=== PATIENT | female | born 1990 | race Caucasian/White ===

== ENCOUNTER 2021-02-02 10:34 | Emergency (ER) | payer MEDICAID, SELFPAY ==
[2021-02-02 11:34] VITALS: BP 109/77; PULSE 84; RESP 18; O2SAT 100; BMI 32.5
--- NOTE | 2021-02-02 13:03 | ED_ITS ---
HPI - Skin/Abscess/Foreign Bdy General Chief complaint: Skin/Abscess/Foreign Body Stated complaint: rash? Time Seen by Provider: 02/02/21 12:10 Source: patient Mode of arrival: ambulatory History of Present Illness HPI narrative: 30-year-old female with a past medical eczema presenting to the ED complaining of rash to left wrist x7 months. Reports using multiple OTC medications and prescribed medication from PCP without relief. Reports increasing pruritus. Denies pain, fever, chills, numbness, tingling, injury MD complaint: rash Related Data Previous Rx's Medication Instructions Recorded cetirizine [Zyrtec] 10 mg PO DAILY #20 tab 02/02/21 diphenhydramine HCl [Benadryl] 25 mg PO Q6H PRN #14 cap 02/02/21 triamcinolone acetonide 1 appl TOPICAL BID #80 g 02/02/21 Allergies Allergy/AdvReac Type Severity Reaction Status Date / Time No Known Allergies Allergy Verified 02/02/21 11:33 [No Known Allergies*] Review of Systems Review of Systems: Constitutional: No Fever, No Chills Musculoskeletal: No joint pain, No Myalgias, No Joint Swelling Skin: No Skin Lesions, +rash Neuro: No Weakness, No Numbness, No Paresthesias Yes all other systems are reviewed and are negative [facility] Past Medical History Attestation statement: The following information was validated with the patient. Social History Social History Advance Directives: No Advance Directives Information Provided: No Patient : No Physical Exam Vital Signs: Vital Signs: Last Vital Signs Pulse 84 02/02/21 11:34 Resp 18 02/02/21 11:34 BP 109/77 02/02/21 11:34 Pulse Ox 100 02/02/21 11:34 Body Mass Index 32.5 Const: General: cooperative and healthy appearing Orientation/consciousness: patient oriented x3 Limitations: no limitations HENMT: Head: Yes normal to inspection Ears: hearing grossly normal bilaterally General nose exam: Normal external nose present Face and sinus: Yes normal facial exam Eyes: General: appearance normal, both eyes and all related structures EOM: EOMs intact bilaterally Neck: Neck: Yes normal visual inspection Resp: Effort & Inspection: normal respiratory effort Cardio: Rate: regular rate Peripheral pulses: radial pulses present Skin: Other: Discolored raised rough patches noted to left wrist dorsal aspect. No overlying cellulitis/fluctuance or induration Rashes: no rashes Wounds: no wounds Neuro: General: patient oriented x3 Gait exam (Neuro): Normal gait present Extrem: General: Yes normal to inspection MDM - Skin/Abscess/Foreign Bdy MDM Narrative Medical decision making narrative: 30-year-old female with a past medical eczema presenting to the ED complaining of rash to left wrist x7 months. On exam vital signs stable, NAD, exam consistent with eczema. Discharge Plan Discharge Clinical Impression: Eczema Qualifiers: Eczema type: unspecified Qualified Code(s): L30.9 - Dermatitis, unspecified Patient Disposition: Home, Self-Care Instructions: Eczema (ED) Additional Instructions: You have eczema, triamcinolone acetate is a topical steroid, only apply to rash, this has the chance of discoloring her skin, avoid appliance to face/hands. In addition Zyrtec will help with itchiness take during the day as it will not make you drowsy, in take Benadryl at night which will help with itchiness as it will make you drowsy. You need to follow-up with a utility assembler. If area begins to look infected, is red, you fever return to the ED Tiene eccema, el acetato de triamcinolona es un esteroide t?cassidy, solo apl?quelo en la erupci?n, esto tiene la posibilidad de decolorar baker piel, evite el aparato en la mihai / herrera. Adem?s, Zyrtec le ayudar? con la picaz?n, tome pilar el d ?a, ya que no le producir? somnolencia. Herricks Benadryl por la noche, que le ayudar? con la picaz?n, ya que lo angelica? sentir somnoliento. Debe hacer un seguimiento con un dermat?logo. Si el ?matheus comienza a verse infectada, est? enrojecida, la fiebre regresa al servicio de urgencias Prescriptions: New diphenhydramine HCl [Benadryl] 25 mg capsule 25 mg PO Q6H PRN (Reason: itching) Qty: 14 RF: 0 cetirizine [Zyrtec] 10 mg tablet 10 mg PO DAILY Qty: 20 RF: 0 triamcinolone acetonide 0.025 % ointment 1 appl topical BID Qty: 80 RF: 0 Referrals: Yue Alvarez PA [Physician Delivery Specialist] - 2 days Aristeo Luther MD [Physician] - 2 days Epi Beckett MD [Physician] - 2 days Opal Osorio PA-C [Physician Delivery Specialist] - 2 days Kala Beltre PA-C [Physician Delivery Specialist] - 2 days Print Language: French
== END 2021-02-02 13:24 | disposition home or self-care (01) ==
PROVIDERS: Emergency Provider Emergency Medicine; PCP Internal Medicine
DX: L30.9 Dermatitis, unspecified (principal)
CPT/HCPCS: 99283

== ENCOUNTER 2021-04-01 12:49 | Outpatient (REF) | payer MEDICAID, SELFPAY ==
--- NOTE | 2021-04-01 12:57 | ECG_ITS ---
Test Reason : PREPROC EXAM Blood Pressure : / mmHG Vent. Rate : 085 BPM Atrial Rate : 085 BPM P-R Int : 134 ms QRS Dur : 094 ms QT Int : 390 ms P-R-T Axes : 037 053 043 degrees QTc Int : 464 ms Normal sinus rhythm Normal ECG No previous ECGs available Referred By: Sandy Nunn Electronically Signed By:SVEN MORRIS MD
[2021-04-01 14:20] LABS: MANUAL DIFF FLAG NO
[2021-04-01 14:27] LABS: Basophils Percent Auto 0.6 % (0-2); Eosinophils Absolute Auto 0.1 X10*3/uL (0.0-0.4); Eosinophils Percent Auto 1.3 % (0-4); Hematocrit 34.2 % (37-47); Hemoglobin 10.3 g/dl (12.0-16.0); Imm Gran Abs Auto 0.05 X10*3/uL (0.00-0.03); Imm Gran Pct Auto 0.7 % (0.0-0.4); Lymphocytes Absolute Auto 2.2 X10*3/uL (1.2-4.9); Lymphocytes Percent Auto 31.4 % (20-40); Mean Corpuscular HGB Conc 30.1 g/dl (31.0-35.0); Mean Corpuscular Hemoglobin 24.3 pg (27.0-33.0); Mean Corpuscular Volume 80.9 fL (80-98); Monocytes Absolute Auto 0.5 X10*3/uL (0.1-1.2); Monocytes Percent Auto 6.7 % (2-11); Neutrophils Absolute Auto 4.1 X10*3/uL (2.0-8.3); Neutrophils Percent Auto 59.3 % (45-73); Platelet Count 416 X10*3/uL (160-400); Red Blood Count 4.23 X10*6/uL (4.20-5.50)
[2021-04-01 14:35] LABS: Prothrombin Time 11.8 SEC (9.9-13.0)
[2021-04-01 14:44] LABS: Alanine Aminotransferase 10 U/L (0-31); Albumin Level 4.1 g/dL (3.5-5.0); Alkaline Phosphatase 76 U/L (39-117); Anion Gap 12 (12-20); Aspartate Amino Transferase 14 U/L (5-31); Bilirubin Total 0.2 mg/dL (0.0-1.0); Blood Urea Nitrogen 9 mg/dL (9-16); Calcium 9.5 mg/dL (8.4-10.2); Carbon Dioxide 26 mmol/L (22-29); Chloride 107 mmol/L (96-108); Estimated Glomerular Filt Rate > 60; Glucose Random 91 mg/dL (60-115); Potassium 4.5 mmol/L (3.3-5.1); Sodium 140 mmol/L (135-145); Total Protein 7.3 g/dL (6.5-8.0)
[2021-04-01 14:52] LABS: HCG Quantitative < 2 mIU/mL
[2021-04-01 15:25] LABS: Glucose Urine UA NEG (NEG); Leukocyte Esterase Urine NEG (NEG); Nitrite Urine NEG (NEG); Specific Gravity - Urine >= 1.030 (1.005-1.025); Urine Blood NEG (NEG); Urine Ketones NEG (NEG); Urine Protein NEG (NEG-TRACE)
[2021-04-01 15:26] LABS: Appearance Urine CLEAR; Color Urine YELLOW
[2021-04-01 15:43] LABS: RBC Urine 0 /HPF (0); Squamous Epithelial Cell Urine 2+ /LPF; WBC Urine 0 /HPF (0-4)
[2021-04-02 08:19] LABS: HIV AB/AG Nonreactive (Nonreactive); HIV Num 1 0.08 S/CO (0.00-0.99)
== END 2021-04-01 12:50 | disposition home or self-care (01) ==
LOC: HO.LAB 12:49
PROVIDERS: Absent Provider Internal Medicine; PCP Internal Medicine; Visit Provider Nurse Practitioner Primary Care
DX: Z01.810 Encounter for preprocedural cardiovascular examination (principal); Z11.4 Encounter for screening for human immunodeficiency virus [HIV]
CPT/HCPCS: 36415; 80053; 81001; 84702; 85025; 85610; 87389; 93005

== ENCOUNTER 2021-06-16 13:50 | Outpatient (REF) | payer MEDICAID, SELFPAY ==
--- NOTE | ~2021-06-16 | US_ITS ---
EXAMINATION: US PELVIS CLINICAL INFORMATION: Excessive and frequent menstruation. COMPARISON: None TECHNIQUE: Ultrasound of the pelvis is performed using both transabdominal and transvaginal transducers along with Doppler. Transvaginal imaging is performed due to inadequate visualization transabdominally. FINDINGS: Uterus: The uterus is anteverted measuring 1.7 cm in length, 7.0 cm AP and 8.1 cm in transverse dimension.. The myometrium is heterogeneous. There is an echogenic lesion in the left body of uterus measuring 1.7 x 1.7 x 1.6 cm. No additional lesions seen. The endometrial thickness is 1.2 cm. Adnexa: Both ovaries are visualized. There is normal color flow to the adnexa. There is no ovarian torsion. There is no pelvic ascites or fluid collection. Right ovary measures 5.0 x 3.8 x 4.2 cm. There is anechoic simple cyst measuring 3.4 x 2.8 x 3.4 cm. Left ovary measures 5.0 x 2.9 x 2.7 cm. There are 2 simple cysts measuring 1.9 x 2.0 x 2.1 cm and 2.3 x 2.1 x 2.0 cm. US/US pelvic and transvaginal IMPRESSION: Bilateral simple ovarian cyst. Solitary uterine fibroid left uterus. Slightly heterogeneous myometrium.
== END 2021-06-16 13:51 | disposition home or self-care (01) ==
LOC: HO.HMGCX 13:50
PROVIDERS: PCP Internal Medicine; Visit Provider Internal Medicine
DX: N92.0 Excessive and frequent menstruation with regular cycle (principal)
CPT/HCPCS: 76830; 76856

== ENCOUNTER 2021-09-12 15:58 | Emergency (ER) | payer MEDICAID, SELFPAY | END 2021-09-12 17:44 | disposition left against medical advice (07) | PROVIDERS: Emergency Provider Emergency Medicine; PCP Internal Medicine | DX: R05.9 Cough, unspecified (principal) ==

== ENCOUNTER 2022-08-12 11:41 | Outpatient (REF) | payer MEDICAID, SELFPAY ==
--- NOTE | ~2022-08-12 | XR_ITS ---
EXAMINATION: XR FOOT, RIGHT CLINICAL INFORMATION: Right foot pain COMPARISON: None TECHNIQUE: AP, lateral, and oblique views of the right foot. FINDINGS: Chronic stress fracture of the second metatarsal with surrounding callus formation. XR/XR foot RT 2V IMPRESSION: Chronic stress fracture of the second metatarsal with surrounding callus formation.
== END 2022-08-12 11:42 | disposition home or self-care (01) ==
LOC: HO.XRAY 11:41
PROVIDERS: Visit Provider Internal Medicine
DX: M79.671 Pain in right foot (principal)
CPT/HCPCS: 73620

== ENCOUNTER → 2022-08-29 12:49 | Outpatient (BNVA) | payer MEDICAID, SELFPAY | PROVIDERS: Visit Provider Physician Assistant | DX: M84.374A Stress fracture, right foot, initial encounter for fracture (principal) | CPT/HCPCS: 99202 ==

== ENCOUNTER 2022-10-07 10:27 | Outpatient (REF) | payer MEDICAID, SELFPAY ==
--- NOTE | ~2022-10-07 | MR_ITS ---
EXAMINATION: MRI OF THE RIGHT FOOT WITHOUT CONTRAST CLINICAL INFORMATION: Stress fracture right foot. Patient reports pain 2nd toe symptoms for 2 months. COMPARISON: X-ray the right foot August 2022. TECHNIQUE: MRI the right foot performed without contrast on a high-field MRI scanner. [id number] includes the forefoot and distal midfoot. FINDINGS: BONE/CARTILAGE: Second Metatarsal: There is a minimally displaced transverse slightly oblique fracture of the distal diaphysis of the 2nd metatarsal located 3 views centimeters proximal to the metatarsophalangeal joint. There is prominent bone marrow edema throughout most of the metatarsal. There is circumferential heterogeneous signal surrounding the bone corresponding prominent callus formation/ossification seen on radiographs. The fracture line remains visible. Third Metatarsal: There is bone marrow edema involving most if not all the metatarsal. I do not see discrete fracture line. Minimal edema in the surrounding soft tissues distally at the level of the metatarsal neck. No definite callus formation. Remaining bone and joints are normal. LIGAMENTS AND CAPSULAR STRUCTURES: Unremarkable. MUSCLES/TENDONS: Normal. NEUROVASCULAR STRUCTURES: Normal. PARTIALLY VISUALIZED PLANTAR FASCIA: Normal. MR/MR foot RT wo con IMPRESSION: Incomplete healing of the 2nd metatarsal fracture with persistent bone marrow edema throughout most of the bone and prominent callus formation crossing the ununited fracture. Stress reaction of the 3rd metatarsal
== END 2022-10-07 10:28 | disposition home or self-care (01) ==
LOC: HO.MRI 10:27
PROVIDERS: Visit Provider Physician Assistant
DX: M84.374A Stress fracture, right foot, initial encounter for fracture (principal); X58.XXXA Exposure to other specified factors, initial encounter; Y93.9 Activity, unspecified; Y92.9 Unspecified place or not applicable; Y99.9 Unspecified external cause status
CPT/HCPCS: 73718

== ENCOUNTER 2022-11-17 13:14 | Outpatient (REF) | payer MEDICAID, SELFPAY ==
--- NOTE | ~2022-11-17 | XR_ITS ---
EXAMINATION: XR FOOT, RIGHT CLINICAL INFORMATION: Fracture follow-up COMPARISON: 08/12/2022 TECHNIQUE: AP, lateral, and oblique views of the right foot. FINDINGS: Chronic stress fracture of the second metatarsal with surrounding callus formation. XR/XR foot RT min 3V IMPRESSION: Chronic stress fracture of the second metatarsal with surrounding callus formation.
== END 2022-11-17 13:15 | disposition home or self-care (01) ==
LOC: HO.HOSX 13:14
PROVIDERS: Visit Provider Physician Assistant
DX: M84.374A Stress fracture, right foot, initial encounter for fracture (principal); X58.XXXA Exposure to other specified factors, initial encounter; Y93.9 Activity, unspecified; Y92.9 Unspecified place or not applicable; Y99.9 Unspecified external cause status
CPT/HCPCS: 73630; 99212

== ENCOUNTER 2023-05-18 08:46 | Outpatient (REF) | payer MEDICAID, SELFPAY ==
[2023-05-18 11:38] LABS: Cholesterol 145 mg/dL (<200); HDL Cholesterol 41 mg/dL (>40); LDL Cholesterol Calculated 87 mg/dL (<100); Triglycerides 89 mg/dL (<150)
[2023-05-18 11:56] LABS: Reflex LDLD? No
[2023-05-18 12:01] LABS: Anion Gap 10 (12-20); Blood Urea Nitrogen 7 mg/dL (9-16); Calcium 9.3 mg/dL (8.4-10.2); Carbon Dioxide 24 mmol/L (22-29); Chloride 109 mmol/L (96-108); Estimated Glomerular Filt Rate > 60; Glucose Random 111 mg/dL (60-115); Potassium 3.7 mmol/L (3.3-5.1); Sodium 139 mmol/L (135-145); TSH reflex Free T4 < 0.01 uIU/mL (0.32-4.0); Vitamin D 25-OH Total 22.1 ng/mL (>30)
[2023-05-18 13:49] LABS: Free T4 (Free Thyroxine) 1.18 ng/dL (0.71-1.85)
== END 2023-05-18 08:47 | disposition home or self-care (01) ==
LOC: HO.HHCL 08:46
PROVIDERS: Visit Provider Internal Medicine
DX: E04.9 Nontoxic goiter, unspecified (principal); E66.09 Other obesity due to excess calories; M54.9 Dorsalgia, unspecified; G89.29 Other chronic pain
CPT/HCPCS: 36415; 80048; 80061; 82306; 84439; 84443

== ENCOUNTER 2023-06-22 12:15 | Outpatient (REF) | payer MEDICAID, SELFPAY ==
--- NOTE | ~2023-06-22 | XR_ITS ---
EXAMINATION: XR THORACOLUMBAR SPINE CLINICAL INFORMATION: Thoracic back pain x2 weeks. Status post fall 6 months ago. COMPARISON: None available. TECHNIQUE: AP and lateral views of the thoracic spine. FINDINGS: There are 12 rib-bearing thoracic vertebral bodies. Alignment is normal. Vertebral body heights are maintained. Intervertebral disc spaces are preserved. The pedicles are intact. No paraspinal soft tissue abnormality. XR/XR thoracic spine 2V IMPRESSION: No acute abnormality.
== END 2023-06-22 12:16 | disposition home or self-care (01) ==
LOC: HO.HHCX 12:15
PROVIDERS: Visit Provider Internal Medicine
DX: M54.6 Pain in thoracic spine (principal)
CPT/HCPCS: 72070

== ENCOUNTER 2023-06-26 08:56 | Outpatient (REF) | payer MEDICAID, SELFPAY ==
[2023-06-26 11:45] LABS: D Dimer High Sensitivity 197 NG/ML
== END 2023-06-26 08:57 | disposition home or self-care (01) ==
LOC: HO.HHCL 08:56
PROVIDERS: Visit Provider Internal Medicine
DX: R00.0 Tachycardia, unspecified (principal)
CPT/HCPCS: 36415; 85379

== ENCOUNTER 2023-07-07 13:28 | Outpatient (REF) | payer MEDICAID, SELFPAY ==
[2023-07-07 16:03] LABS: MANUAL DIFF FLAG NO
[2023-07-07 16:18] LABS: Basophils Percent Auto 0.6 % (0-2); Eosinophils Absolute Auto 0.1 X10*3/uL (0.0-0.4); Eosinophils Percent Auto 0.7 % (0-4); Hematocrit 36.6 % (37.0-47.0); Hemoglobin 11.1 g/dl (12.0-16.0); Imm Gran Abs Auto 0.02 X10*3/uL (0.00-0.03); Imm Gran Pct Auto 0.3 % (0.0-0.4); Lymphocytes Percent Auto 27.8 % (20-40); Mean Corpuscular HGB Conc 30.3 g/dl (31.0-35.0); Mean Corpuscular Hemoglobin 23.8 pg (27.0-33.0); Mean Corpuscular Volume 78.4 fL (80.0-98.0); Mean Platelet Volume 11.6 fL (9.4-12.3); Monocytes Absolute Auto 0.7 X10*3/uL (0.1-1.2); Monocytes Percent Auto 9.7 % (2-11); Neutrophils Absolute Auto 4.3 x10*3/uL (2.0-8.3); Neutrophils Percent Auto 60.9 % (45-73); Platelet Count 432 X10*3/uL (160-400); Red Blood Count 4.67 X10*6/uL (4.20-5.50); Red Cell Distribution Width 14.3 % (11.0-16.0); White Blood Count 7.1 X10*3/uL (4.8-10.8)
[2023-07-07 16:46] LABS: TSH reflex Free T4 < 0.01 uIU/mL (0.32-4.0)
[2023-07-07 17:08] LABS: Erythrocyte Sedimentation Rate 51 MM/HR (0-20)
[2023-07-07 17:17] LABS: Free T4 (Free Thyroxine) 1.85 ng/dL (0.71-1.85)
[2023-07-08 12:13] LABS: Triiodothyronine T3 Free 17.2 pg/mL (2.3-4.2)
[2023-07-10 19:27] LABS: Thyroglobulin Antibodies >1000 IU/mL (< or = 1); Thyroid Peroxidase Antibodies >900 IU/mL (<9)
== END 2023-07-07 13:29 | disposition home or self-care (01) ==
LOC: HO.HHCL 13:28
PROVIDERS: Visit Provider Internal Medicine
DX: E04.9 Nontoxic goiter, unspecified (principal); R53.1 Weakness
CPT/HCPCS: 36415; 82550; 84439; 84443; 84481; 85025; 85652; 86376; 86800

== ENCOUNTER 2023-09-29 12:24 | Outpatient (REF) | payer MEDICAID, SELFPAY ==
[2023-09-29 16:54] LABS: Free T4 (Free Thyroxine) 2.29 ng/dL (0.71-1.85); T4 Thyroxine 18.8 ug/dL (4.5-12.0); Thyroid Stimulating Hormone < 0.01 uIU/mL (0.32-4.0)
[2023-09-30 09:54] LABS: Triiodothyronine T3 Free >20.0 pg/mL (2.3-4.2); Triiodothyronine T3 Total 516 ng/dL (76-181)
== END 2023-09-29 12:25 | disposition home or self-care (01) ==
LOC: HO.HHCL 12:24
PROVIDERS: Visit Provider Internal Medicine
DX: E06.3 Autoimmune thyroiditis (principal)
CPT/HCPCS: 36415; 84436; 84439; 84443; 84480; 84481

== ENCOUNTER 2023-10-05 09:42 | Outpatient (REF) | payer MEDICAID, SELFPAY ==
--- NOTE | ~2023-10-05 | US_ITS ---
EXAMINATION: US THYROID CLINICAL INFORMATION: Thyrotoxicosis COMPARISON: None available. TECHNIQUE: Linear transducer grayscale and color Doppler examination with attention to the region of the thyroid. FINDINGS: SIZE: Measurements of the thyroid lobes and nodules are given in sagittal, anteroposterior and transverse dimensions respectively. Right Thyroid Lobe: 5.5 x 2.8 x 2.6 cm, volume 18.9 mL. Parenchyma: The gland echotexture is heterogeneous. Thyroid vascularity is increased. Left Thyroid Lobe: 5.4 x 1.8 x 2.5 cm, volume 11.6 mL. Parenchyma: The gland echotexture is heterogeneous. Thyroid vascularity is increased. Isthmus: 0.6 cm in maximum AP dimension. No focal thyroid nodule is seen. NODES: There are nonpathologically enlarged cervical lymph nodes, measuring 0.8 x 0.3 x 0.6 cm superior to the isthmus, 1.5 x 0.6 x 0.8 cm in the left cervical region and 2.4 x 0.6 x 0.6 cm in the right cervical region. There is no sizable lymphadenopathy. US/US thyroid IMPRESSION: 1. There is an asymmetric goiter, right lobe greater than left. 2. There is heterogeneous thyroid echotexture and increased vascularity, which can be associated with thyroiditis. ACR TI-RADS RECOMMENDATION REFERENCE: Ultrasound-guided fine-needle aspiration, followup ultrasound, no further follow up. * TR1 (0 point) and TR2 (2 points): No FNA or follow up. * TR3 (3 points): FNA if more than or equal to 2.5 cm in maximum dimension, followup ultrasound in 1, 3 and 5 years if 1.5 to 2.4 cm in maximum dimension. * TR4 (4-6 points): FNA if more than or equal to 1.5 cm in maximum dimension, followup ultrasound in 1, 2, 3 and 5 years if 1 to 1.4 cm in maximum dimension. * TR5 (more than or equal to 7 points): FNA if more than or equal to 1 cm in maximum dimension, followup ultrasound every year for 5 years if 0.5 to 0.9 cm in maximum dimension. * TR3, TR4 or TR5 nodules that are below the size threshold for followup receive no follow up.
== END 2023-10-05 09:43 | disposition home or self-care (01) ==
LOC: HO.US 09:42
PROVIDERS: PCP Internal Medicine; Visit Provider Internal Medicine
DX: E05.90 Thyrotoxicosis, unspecified without thyrotoxic crisis or storm (principal); R60.0 Localized edema
CPT/HCPCS: 76536

== ENCOUNTER 2023-10-27 12:37 | Outpatient (REF) | payer MEDICAID, SELFPAY ==
[2023-10-27 13:21] LABS: MANUAL DIFF FLAG NO
[2023-10-27 13:31] LABS: Basophils Absolute Auto 0.1 X10*3/uL (0.0-0.2); Basophils Percent Auto 0.8 % (0-2); Eosinophils Absolute Auto 0.1 X10*3/uL (0.0-0.4); Eosinophils Percent Auto 1.4 % (0-4); Hematocrit 35.8 % (37.0-47.0); Hemoglobin 11.3 g/dl (12.0-16.0); Imm Gran Abs Auto 0.02 X10*3/uL (0.00-0.03); Imm Gran Pct Auto 0.3 % (0.0-0.4); Lymphocytes Absolute Auto 2.4 X10*3/uL (1.2-4.9); Lymphocytes Percent Auto 38.4 % (20-40); Mean Corpuscular HGB Conc 31.6 g/dl (31.0-35.0); Mean Corpuscular Hemoglobin 24.3 pg (27.0-33.0); Mean Platelet Volume 11.2 fL (9.4-12.3); Monocytes Absolute Auto 0.6 X10*3/uL (0.1-1.2); Monocytes Percent Auto 10.2 % (2-11); Neutrophils Absolute Auto 3.1 x10*3/uL (2.0-8.3); Neutrophils Percent Auto 48.9 % (45-73); Platelet Count 340 X10*3/uL (160-400); Red Blood Count 4.65 X10*6/uL (4.20-5.50); Red Cell Distribution Width 14.9 % (11.0-16.0); White Blood Count 6.3 X10*3/uL (4.8-10.8)
[2023-10-27 14:08] LABS: Alanine Aminotransferase 22 U/L (0-31); Albumin Level 3.7 g/dL (3.5-5.0); Alkaline Phosphatase 127 U/L (39-117); Anion Gap 11 (12-20); Aspartate Amino Transferase 25 U/L (5-31); Bilirubin Total 0.2 mg/dL (0.0-1.0); Blood Urea Nitrogen 7 mg/dL (9-16); Calcium 9.6 mg/dL (8.4-10.2); Carbon Dioxide 26 mmol/L (22-29); Chloride 108 mmol/L (96-108); Estimated Glomerular Filt Rate > 60; Glucose Random 97 mg/dL (60-115); Potassium 3.6 mmol/L (3.3-5.1); Sodium 141 mmol/L (135-145); Total Protein 7.1 g/dL (6.5-8.0)
[2023-10-27 14:22] LABS: Free T4 (Free Thyroxine) 1.92 ng/dL (0.71-1.85); TSH reflex Free T4 < 0.01 uIU/mL (0.32-4.0)
[2023-10-28 07:53] LABS: Triiodothyronine T3 Free 17.3 pg/mL (2.3-4.2)
== END 2023-10-27 12:38 | disposition home or self-care (01) ==
LOC: HO.HHCL 12:37
PROVIDERS: Visit Provider Internal Medicine
DX: R00.0 Tachycardia, unspecified (principal); E05.00 Thyrotoxicosis with diffuse goiter without thyrotoxic crisis or storm
CPT/HCPCS: 36415; 80053; 84439; 84443; 84481; 85025

== ENCOUNTER 2023-11-20 18:11 | Outpatient (REF) | payer MEDICAID, SELFPAY ==
[2023-11-21 06:24] LABS: CT PCR NOT DETECTED (Not Detect.); NG PCR NOT DETECTED (Not Detect.)
== END 2023-11-20 18:12 | disposition home or self-care (01) ==
LOC: HO.HHCLNP 18:11
PROVIDERS: Visit Provider Advanced Practice Midwife
DX: Z11.3 Encounter for screening for infections with a predominantly sexual mode of transmission (principal)
CPT/HCPCS: 0353U

== ENCOUNTER 2024-01-11 22:31 | Emergency (ER) | payer MEDICAID, SELFPAY ==
--- NOTE | 2024-01-11 | ECG_ITS ---
Test Reason : TACHYCARDIA Blood Pressure : / mmHG Vent. Rate : 107 BPM Atrial Rate : 107 BPM P-R Int : 130 ms QRS Dur : 092 ms QT Int : 346 ms P-R-T Axes : 039 022 036 degrees QTc Int : 461 ms Sinus tachycardia Otherwise normal ECG When compared with ECG of 11-JAN-2024 22:33, Vent. rate has decreased BY 55 BPM Referred By: Richie Arias Electronically Signed By:LARY GAMEZ
[2024-01-11 22:38] VITALS: BP 141/88; BP 152/84; PULSE 170; PULSE 171; RESP 32; TEMP 36.9; O2SAT 100; BMI 32.7
--- NOTE | 2024-01-11 22:40 | ED.GENADULT ---
HPI - General Adult General Chief complaint: Anxiety Stated complaint: ANXIETY Time Seen by Provider: 01/11/24 22:40 History of Present Illness HPI narrative: The patient is a 33-year-old female who says that she has been having problems with hyperthyroidism for a long time. It is not clear exactly how long but possibly as long as a year. She says that she believes her baseline heart rate is around 120. She says she is prescribed metoprolol 50 mg once a day. She thinks she missed her dose this morning. The patient has been upset the last couple of days because her cat is missing. Tonight she took an edible marijuana at around 19:00. She has not sure how much she took but she thinks she might have had more than she should have because she says that she had the impression that it was merely candy. Not long after taking the marijuana edible she felt that her heart rate was racing very fast and she called an ambulance and was brought to the hospital. She was quite upset. She was feeling very anxious. She denies using any other drugs than marijuana. She says she has not used marijuana before. The patient says she sees Dr. Gunn of endocrinology in the [place] area. She says that she had lab work done as an outpatient earlier today and she thinks that she will be scheduled for additional treatments or procedures to help address her hyperthyroid problem. No significant chest pain or pleuritic pain or shortness of breath. Related Data Home Medications ?Medication ?Instructions ?Recorded ?Confirmed ascorbic acid (vitamin C) 500 mg 500 mg PO BID 08/29/22 08/29/22 tablet (Vitamin C) ferrous sulfate 325 mg (65 mg 325 mg PO BID 08/29/22 08/29/22 iron) tablet (FeroSul) lidocaine 5 % topical patch 0 patch topical 08/29/22 08/29/22 (Lidoderm) naproxen 500 mg tablet 0 mg PO 08/29/22 08/29/22 Previous Rx's ?Medication ?Instructions ?Recorded cetirizine 10 mg tablet (Zyrtec) 10 mg PO DAILY #20 tabs 02/02/21 diphenhydramine HCl 25 mg capsule 25 mg PO Q6H PRN itching #14 caps 02/02/21 (Benadryl) triamcinolone acetonide 0.025 % 1 appl topical BID #80 grams 02/02/21 topical ointment Allergies Allergy/AdvReac Type Severity Reaction Status Date / Time No Known Allergies Allergy Verified 01/11/24 22:41 [No Known Allergies*] Review of Systems Review of Systems: Yes all other systems are reviewed and are negative [facility] Past Medical History Medical History (Updated 01/12/24 @ 03:13 by Richie Arias MD) Seasonal allergic reaction Social History Social History (Updated 08/29/22 @ 12:55 by Yojana Rivas CCM) Advance Directives: No Advance Directives Information Provided: Yes Do you have a plan to hurt others: No Plan Current occupational status: employed 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 She was very anxious and somewhat histrionic. Her heart rate was in the 170s. She seemed to tolerate the tachycardia well. She did not seem in distress aside from her anxiety. She did not seem short of breath in any way. HENMT Other: Face is symmetrical. Mucous membranes moist. Airway clear. Eyes Other: Pupils are round equal, conjunctivae are clear Neck Other: No JVD Resp Effort & Inspection: normal respiratory effort Auscultation: clear to auscultation bilaterally Cardio Other: No murmur heard Rate: tachycardic Rhythm: regular rhythm Heart sounds: S1 normal heart sound present and S2 normal heart sound present GI Other: Abdomen is soft and nontender Skin Other: Skin is dry and unremarkable Neuro Other: The patient is awake and alert. On my 1st encounter with the patient she seemed somewhat histrionic. Later she was calmer. Face is symmetrical. Speech is clear. Eye movements intact. She moves her extremities normally and symmetrically. Extrem Other: No calf swelling or tenderness. No peripheral edema. No asymmetry. Medications Administered Generic Name Dose Route Start Last Admin Trade Name Freq PRN Reason Stop Dose Admin Potassium Chloride/Sodium Chloride 40 meq in 1,000 mls @ 250 mls/hr 01/11/24 23:45 01/12/24 00:10 Kcl 40 Meq In 0.9 % Sodium Chl IV 01/12/24 03:44 250 mls/hr .Q4H MATT Administration Discontinued Medications Generic Name Dose Route Start Last Admin Trade Name Freq PRN Reason Stop Dose Admin Sodium Chloride 1,000 mls @ 999 mls/hr 01/11/24 23:00 01/11/24 23:55 Ns IV 01/12/24 00:00 Infused .Q1H1M MATT Infusion Lorazepam 1 mg 01/11/24 23:46 01/12/24 00:08 Lorazepam 2 Mg/Ml Vial IVPUSH 01/11/24 23:47 1 mg ONCE ONE Administration Metoprolol Tartrate 5 mg 01/12/24 01:19 01/12/24 01:38 Metoprolol Tartrate 5 Mg/5 Ml Vial IVPUSH 01/12/24 01:20 5 mg ONCE ONE Administration Protocol Metoprolol Tartrate 50 mg 01/12/24 01:19 01/12/24 01:38 Metoprolol Tartrate 50 Mg Tablet PO 01/12/24 01:20 50 mg ONCE ONE Administration Protocol Potassium Chloride 40 meq 01/11/24 23:46 01/12/24 00:11 Potassium Chloride Er 20 Meq Tab.Er.Prt PO 01/11/24 23:47 40 meq ONCE ONE Administration Medical Decision Making Medical Decision Making [facility] Narrative: The patient is a 33-year-old female who comes to the emergency room by ambulance after feeling very anxious after using edible marijuana for the 1st time. The patient is presentation was most significant for a significant tachycardia. Her heart rate was about 160. This seemed to be sinus tachycardia. The patient also reports that she has a history of hyperthyroidism that is still being worked up. She says that she takes metoprolol 50 mg daily but has not yet had any other specific treatment for her problem. She works with Dr. Gunn of Endocrinology in [place] I would in fact says that she had outpatient lab work earlier in the day and has plans to initiate additional treatments quite soon. She also says that she did not take her morning metoprolol this morning. My overall impression is that the patient has tachycardia is in part due to a reaction to marijuana use tonight. The patient says that she has a baseline tachycardia and her heart rate has often been 120 for the last several months. Another contributing factor is that she believes she did not take her metoprolol today. On the patient's labs her potassium came back quite low at 2.3. She was given oral potassium and IV potassium. She was given IV lorazepam as she initially seemed quite agitated. Later she was also given 5 mg of IV metoprolol and 50 mg of oral metoprolol tartrate. The patient had a minimally elevated D-dimer 240. I think this is sufficiently though that, given that her tachycardia probably seems better explained by a marijuana reaction combined with her underlying hyperthyroid syndrome and her missing her metoprolol today, that I think pursuing a CT pulmonary angiogram is probably not warranted. Although the patient has TSH today is undetectable I do not think she is in thyroid storm. I think this may be a manifestation of hyperthyroidism without thyroid storm. A repeat basic metabolic panel showed a normal potassium at 3.5. The patient was feeling much better. I think she may be discharged. She will be instructed to resume her usual metoprolol in the morning. She should avoid marijuana. She should contact her counseling services manager. She should return if worse. Lab Data 01/11/24 22:51 01/12/24 01:49 Labs: Lab Results 01/11/24 01/12/24 01/12/24 Range/Units 22:51 00:39 01:49 WBC 13.6 H (4.8-10.8) X10*3/uL RBC 4.47 (4.20-5.50) X10*6/uL Hgb 11.7 L (12.0-16.0) g/dl Hct 35.0 L (37.0-47.0) % MCV 78.3 L (80.0-98.0) fL MCH 26.2 L (27.0-33.0) pg MCHC 33.4 (31.0-35.0) g/dl RDW 14.0 (11.0-16.0) % Plt Count 451 H D (160-400) X10*3/uL MPV 10.5 (9.4-12.3) fL Immature Gran % (Auto) 0.2 (0.0-0.4) % Neut % (Auto) 50.0 (45-73) % Lymph % (Auto) 39.9 (20-40) % [place] % (Auto) 8.5 (2-11) % Eos % (Auto) 0.8 (0-4) % Baso % (Auto) 0.6 (0-2) % Lymph # (Auto) 5.4 H (1.2-4.9) X10*3/uL [place] # (Auto) 1.2 (0.1-1.2) X10*3/uL Eos # (Auto) 0.1 (0.0-0.4) X10*3/uL Baso # (Auto) 0.1 (0.0-0.2) X10*3/uL Abs Immat Gran (auto) 0.03 (0.00-0.03) X10*3/uL Absolute Neuts (auto) 6.8 (2.0-8.3) x10*3/uL Absolute Nucleated RBC 0.000 (0.0-0.012) X10*3/uL Nucleated RBC % (auto) 0.0 (0.0-0.2) /100WBC Smear Tech's Comments VERIFIED PT 12.7 (11.1-13.3) SEC INR 1.0 (0.9-1.1) D-Dimer High Sensitivty 240 NG/ML Sodium 140 138 (135-145) mmol/L Potassium 2.3 L* D 3.5 D (3.3-5.1) mmol/L Chloride 106 109 H (96-108) mmol/L Carbon Dioxide 22 21 L (22-29) mmol/L Anion Gap 14 12 (12-20) BUN 10 8 L (9-16) mg/dL Creatinine 0.60 0.52 (0.5-1.4) mg/dL Estim Creat Clear Calc 166.5 192.1 Estimated GFR > 60 > 60 Random Glucose 130 H 139 H (60-115) mg/dL Calcium 9.9 9.3 D (8.4-10.2) mg/dL Magnesium 1.5 L (1.6-2.6) mg/dL Total Bilirubin 0.2 (0.0-1.0) mg/dL Direct Bilirubin < 0.2 (0.0-0.5) mg/dL AST 20 (5-31) U/L ALT 19 (0-31) U/L Alkaline Phosphatase 162 H (39-117) U/L Troponin I High Sens < 2.7 (<3.5-17.0) ng/L C-Reactive Protein 0.61 H (< or = 0.50) mg/dL B-Natriuretic Peptide < 10 (<100) pg/mL Total Protein 7.6 (6.5-8.0) g/dL Albumin 4.0 (3.5-5.0) g/dL TSH < 0.01 L (0.32-4.0) uIU/mL Free T4 1.75 (0.71-1.85) ng/dL Beta HCG, Quant < 2 mIU/mL Urine Color Yellow Urine Appearance Clear Urine pH 6.5 (5.0-9.0) Ur Specific [place] 1.015 (1.005-1.025) Urine Protein Trace (Neg-Trace) mg/dL Urine Glucose (UA) Negative (Negative) mg/dL Urine Ketones Negative (Negative) mg/dL Urine Blood Moderate (2+) H (Negative) Urine Nitrite Negative (Negative) Ur Leukocyte Esterase Negative (Negative) Urine RBC >20 H (0-2) /HPF Urine WBC 0-5 (0-5) /HPF Ur Squamous Epith Cells 0-2 (0-2) /HPF Urine Bacteria None Seen (None Seen) Hyaline Casts 0-2 (0-2) /LPF Urine Opiates Screen Not Detected (Not Detect) Ur Buprenorphine Scrn Not Detected (Not Detect) ng/mL Ur Oxycodone Screen Not Detected (Not Detect) ng/mL Urine Methadone Screen Not Detected (Not Detect) ng/mL Urine Fentanyl Screen Not Detected (Not Detect) Ur Barbiturates Screen Not Detected (Not Detect) Ur Phencyclidine Scrn Not Detected (Not Detect) Ur Amphetamines Screen Not Detected (Not Detect) U Benzodiazepines Scrn Not Detected (Not Detect) Urine Cocaine Screen Not Detected (Not Detect) U Marijuana (THC) Screen POSITIVE H (Not Detect) Ethyl Alcohol < 10 mg/dL Influenza Type A (PCR) NEGATIVE (Negative) Influenza Type B (PCR) NEGATIVE (Negative) RSV RNA Qual (PCR) NEGATIVE (Negative) SARS-CoV-2 RNA (RT-PCR) NEGATIVE (Negative) Independent Interpretation I performed an independent interpretation of an: EKG Interpretation: EKG at 22:33 shows sinus tachycardia at 162 beats per minute. I believe most changes are rate related changes. Discharge Plan Discharge Clinical Impression: Tachycardia, Marijuana use, Hyperthyroidism Patient Disposition: Home, Self-Care Additional Instructions: Please try to get some sleep tonight. Resume your normal metoprolol dosing in the morning and also take any other regular medications. Avoid marijuana in the future. Please contact Dr. Gunn in the morning to follow through on your recent testing. Return to the emergency department if worse. Prescriptions: No Action diphenhydramine HCl [Benadryl] 25 mg capsule 25 mg PO Q6H PRN (Reason: itching) Qty: 14 0RF cetirizine [Zyrtec] 10 mg tablet 10 mg PO DAILY Qty: 20 0RF triamcinolone acetonide 0.025 % ointment 1 appl topical BID Qty: 80 0RF lidocaine [Lidoderm] 5 % adhesive patch,medicated 0 patch topical naproxen 500 mg tablet 0 mg PO ferrous sulfate [FeroSul] 325 mg (65 mg iron) tablet 325 mg PO BID ascorbic acid (vitamin C) [Vitamin C] 500 mg tablet 500 mg PO BID Referrals: Silas Gunn DO, MD [Physician] - (tachycardia, hyperthyroidism) Felisha Arzola MD [Primary Care Provider] - (Tachycardia, hyperthyroidism, marijuana use) Print Language: [place]i
[2024-01-11] MEDS: 0.9 % Sodium Chloride 1,000 ML 999 ML IV (22:54)
[2024-01-11 22:59] LABS: Basophils Absolute Auto 0.1 X10*3/uL (0.0-0.2); Basophils Percent Auto 0.6 % (0-2); Eosinophils Absolute Auto 0.1 X10*3/uL (0.0-0.4); Eosinophils Percent Auto 0.8 % (0-4); Hemoglobin 11.7 g/dl (12.0-16.0); Imm Gran Abs Auto 0.03 X10*3/uL (0.00-0.03); Imm Gran Pct Auto 0.2 % (0.0-0.4); Lymphocytes Absolute Auto 5.4 X10*3/uL (1.2-4.9); Lymphocytes Percent Auto 39.9 % (20-40); MANUAL DIFF FLAG SCAN; Mean Corpuscular HGB Conc 33.4 g/dl (31.0-35.0); Mean Corpuscular Hemoglobin 26.2 pg (27.0-33.0); Mean Corpuscular Volume 78.3 fL (80.0-98.0); Mean Platelet Volume 10.5 fL (9.4-12.3); Monocytes Absolute Auto 1.2 X10*3/uL (0.1-1.2); Monocytes Percent Auto 8.5 % (2-11); Neutrophils Absolute Auto 6.8 x10*3/uL (2.0-8.3); Platelet Count 451 X10*3/uL (160-400); Red Blood Count 4.47 X10*6/uL (4.20-5.50); SCAN SMEAR FLAG 1
[2024-01-11 23:03] LABS: Prothrombin Time 12.7 SEC (11.1-13.3)
[2024-01-11 23:20] LABS: Ethanol < 10 mg/dL
[2024-01-11 23:21] LABS: B Type Natriuretic Peptide < 10 pg/mL (<100)
[2024-01-11 23:23] LABS: White Blood Count 13.6 X10*3/uL (4.8-10.8)
[2024-01-11 23:24] LABS: SLIDE REVIEW VERIFIED
[2024-01-11 23:27] LABS: HCG Quantitative < 2 mIU/mL
[2024-01-11 23:29] LABS: Alanine Aminotransferase 19 U/L (0-31); Alkaline Phosphatase 162 U/L (39-117); Anion Gap 14 (12-20); Aspartate Amino Transferase 20 U/L (5-31); Bilirubin Direct < 0.2 mg/dL (0.0-0.5); Bilirubin Total 0.2 mg/dL (0.0-1.0); Blood Urea Nitrogen 10 mg/dL (9-16); C Reactive Protein 0.61 mg/dL (< or = 0.50); Calcium 9.9 mg/dL (8.4-10.2); Carbon Dioxide 22 mmol/L (22-29); Chloride 106 mmol/L (96-108); Creatinine Clr Calc Pharmacy 166.5; Estimated Glomerular Filt Rate > 60; Glucose Random 130 mg/dL (60-115); Magnesium 1.5 mg/dL (1.6-2.6); Potassium 2.3 mmol/L (3.3-5.1); Sodium 140 mmol/L (135-145); Total Protein 7.6 g/dL (6.5-8.0)
[2024-01-11 23:35] LABS: Influenza A PCR NEGATIVE (Negative); Influenza B PCR NEGATIVE (Negative); Resp Syncy Virus RNA Qual PCR NEGATIVE (Negative); SARS COV2 PCR INHOUSE NEGATIVE (Negative)
[2024-01-11 23:39] LABS: TSH reflex Free T4 < 0.01 uIU/mL (0.32-4.0)
[2024-01-11 23:54] LABS: Troponin-I High Sensitivity < 2.7 ng/L (<3.5-17.0)
[2024-01-12] MEDS: LORazepam 2 MG/ML VIAL 1 MG IVPUSH (00:08)
[2024-01-12] MEDS: KCl 40 mEq in 0.9 % Sodium Chl 40 MEQ/1,000 ML IV.SOLN 250 MEQ IV (00:10)
[2024-01-12] MEDS: Potassium Chloride ER 20 MEQ TAB.ER.PRT 40 MEQ PO (00:11)
[2024-01-12 00:14] LABS: D Dimer High Sensitivity 240 NG/ML
[2024-01-12 00:33] LABS: Free T4 (Free Thyroxine) 1.75 ng/dL (0.71-1.85)
[2024-01-12 00:41] VITALS: BP 135/83; PULSE 138; RESP 24; O2SAT 99
[2024-01-12 00:45] LABS: Appearance Urine Clear; Color Urine Yellow; Glucose Urine UA Negative (Negative); Leukocyte Esterase Urine Negative (Negative); Nitrite Urine Negative (Negative); PH 6.5 (5.0-9.0); Specific Gravity - Urine 1.015 (1.005-1.025); UMIC TRIGGER UACC YES; Urine Blood Moderate (2+) (Negative); Urine Ketones Negative (Negative); Urine Protein Trace mg/dL (Neg-Trace)
[2024-01-12 00:47] LABS: Bacteria Urine None Seen (None Seen); Hyaline Casts Urine 0-2 /LPF (0-2); RBC Urine >20 /HPF (0-2); Squamous Epithelial Cell Urine 0-2 /HPF (0-2); WBC Urine 0-5 /HPF (0-5)
[2024-01-12 01:02] LABS: Amphetamine Screen Urine Not Detected (Not Detect); Barbiturates, Urine Not Detected (Not Detect); Benzodiazepines Screen Urine Not Detected (Not Detect); Buprenorphine Scr Not Detected (Not Detect); Cannabinoid Screen Urine POSITIVE (Not Detect); Cocaine Screen Urine Not Detected (Not Detect); Fentanyl, urine Not Detected (Not Detect); Methadone Screen, Urine Not Detected (Not Detect); Opiate Screen Urine Not Detected (Not Detect); Oxycodone Screen Urine Not Detected (Not Detect); Phencyclidine Screen Urine Not Detected (Not Detect)
[2024-01-12 01:37] VITALS: BP 138/79; PULSE 136; RESP 19; O2SAT 99
[2024-01-12 01:38] VITALS: BP 138/79; PULSE 136
[2024-01-12] MEDS: Metoprolol Tartrate 50 MG TABLET PO (01:38)
[2024-01-12] MEDS: Metoprolol Tartrate 5 MG/5 ML VIAL IVPUSH (01:38)
--- NOTE | 2024-01-12 01:59 | ECG_ITS ---
Test Reason : tachycardia Blood Pressure : / mmHG Vent. Rate : 162 BPM Atrial Rate : 162 BPM P-R Int : 130 ms QRS Dur : 090 ms QT Int : 306 ms P-R-T Axes : 067 051 061 degrees QTc Int : 502 ms Sinus tachycardia Nonspecific ST and T wave abnormality Abnormal ECG When compared with ECG of 01-APR-2021 13:04, Vent. rate has increased BY 77 BPM Referred By: Richie Arias Electronically Signed By:LARY GAMEZ
[2024-01-12 02:10] LABS: Anion Gap 12 (12-20); Blood Urea Nitrogen 8 mg/dL (9-16); Calcium 9.3 mg/dL (8.4-10.2); Carbon Dioxide 21 mmol/L (22-29); Chloride 109 mmol/L (96-108); Creatinine Clr Calc Pharmacy 192.1; Estimated Glomerular Filt Rate > 60; Glucose Random 139 mg/dL (60-115); Potassium 3.5 mmol/L (3.3-5.1); Sodium 138 mmol/L (135-145)
[2024-01-12 02:39] VITALS: BP 126/82; PULSE 99; RESP 24; O2SAT 99
[2024-01-12 02:46] VITALS: BP 126/80; PULSE 99; RESP 18; O2SAT 100
[2024-01-12] MEDS: LORazepam 1 MG TABLET PO (03:16)
[2024-01-12 03:18] VITALS: BP 118/73; PULSE 97; RESP 21; TEMP 36.6; O2SAT 100
== END 2024-01-12 03:25 | disposition home or self-care (01) ==
PROVIDERS: Emergency Provider Emergency Medicine; PCP Internal Medicine
DX: R00.0 Tachycardia, unspecified (principal); F12.90 Cannabis use, unspecified, uncomplicated; E05.90 Thyrotoxicosis, unspecified without thyrotoxic crisis or storm; E87.6 Hypokalemia; Z79.899 Other long term (current) drug therapy
CPT/HCPCS: 0241U; 36415; 80048; 80076; 80307; 81001; 83735; 83880; 84439; 84443; 84484; 84702; 85025; 85379; 85610; 86140; 93005; 96361; 96374; 96375; 99285; J2060; J3480

== ENCOUNTER → 2024-01-11 | Outpatient (BNV) | payer MEDICAID, SELFPAY | PROVIDERS: Emergency Provider Emergency Medicine; PCP Internal Medicine; Visit Provider Internal Medicine | DX: R00.0 Tachycardia, unspecified (principal) | CPT/HCPCS: 93010 ==

== ENCOUNTER → 2024-01-12 01:59 | Outpatient (BNV) | payer MEDICAID, SELFPAY | PROVIDERS: Emergency Provider Emergency Medicine; PCP Internal Medicine; Visit Provider Internal Medicine | DX: R00.0 Tachycardia, unspecified (principal); R94.31 Abnormal electrocardiogram [ECG] [EKG] | CPT/HCPCS: 93010 ==

== ENCOUNTER 2024-09-24 09:02 | Outpatient (REF) | payer MEDICAID, SELFPAY ==
--- NOTE | ~2024-09-24 | XR_ITS ---
EXAMINATION: XR SHOULDER, LEFT CLINICAL INFORMATION: persistent L shoulder pain with decreased ROM COMPARISON: None available. TECHNIQUE: AP external rotation, Grashey, scapular Y, and axillary views of the left shoulder. FINDINGS: The bones and soft tissues are normal. No fracture. Glenohumeral and acromioclavicular alignment is anatomic with normal joint space. No abnormal soft tissue calcifications. XR/XR shoulder LT min 2V IMPRESSION: Normal left shoulder. Electronically signed by: Suraj Lilly MD 09/24/2024 10:48 AM HALLIE
== END 2024-09-24 09:03 | disposition home or self-care (01) ==
LOC: HO.HHCX 09:02
PROVIDERS: Visit Provider Family Medicine
DX: M25.512 Pain in left shoulder (principal)
CPT/HCPCS: 73030

== ENCOUNTER → 2024-09-24 09:02 | Outpatient (BNV) | payer MEDICAID, SELFPAY | PROVIDERS: Visit Provider Radiology Diagnostic Radiology | DX: M25.512 Pain in left shoulder (principal) | CPT/HCPCS: 73030 ==

== ENCOUNTER 2024-09-27 08:55 | Emergency (ER) | payer MEDICAID, SELFPAY ==
--- NOTE | ~2024-09-27 | XR_ITS ---
EXAMINATION: XR CHEST 2 VIEWS HISTORY: cough,cwp COMPARISON: Comparison is made with the prior examination dated 07/13/2018. FINDINGS: PA and lateral views of the chest are submitted. The lungs are expanded and clear. There is no pleural effusion, pneumothorax, or pulmonary vascular congestion. The heart is normal in size. The bones are intact. XR/XR chest 2V IMPRESSION: No acute cardiopulmonary abnormality. Electronically signed by: Freeman Valero MD 09/27/2024 09:23 AM EST
--- NOTE | 2024-09-27 08:58 | ECG_ITS ---
Test Reason : CHEST PRESSURE Blood Pressure : */* mmHG Vent. Rate : 92 BPM Atrial Rate : 92 BPM P-R Int : 136 ms QRS Dur : 94 ms QT Int : 362 ms P-R-T Axes : 21 24 26 degrees QTcB Int : 447 ms Normal sinus rhythm Incomplete right bundle branch block Borderline ECG When compared with ECG of 12-Jan-2024 02:02, Incomplete right bundle branch block is now Present Referred By: Generic ED Physician Electronically Signed By: SVEN MORRIS MD
[2024-09-27 08:59] VITALS: BP 117/81; PULSE 92; RESP 20; TEMP 37.1; O2SAT 98; BMI 33.6
[2024-09-27 10:43] LABS: Influenza A PCR NEGATIVE (Negative); Influenza B PCR NEGATIVE (Negative); Resp Syncy Virus RNA Qual PCR NEGATIVE (Negative); SARS COV2 PCR INHOUSE NEGATIVE (Negative)
--- NOTE | 2024-09-27 12:05 | ED.GENADULT ---
HPI - General Adult General Chief complaint: Upper Respiratory Symptoms Stated complaint: chest pressure Time Seen by Provider: 09/27/24 11:22 History of Present Illness HPI narrative: Patient complains of 5 days of coughing now productive of green sputum along with a stuffy nose and some right ear mild discomfort, it does hurt in her chest when she coughs but there is no other chest pain, there is no shortness of breath Chest pain is only with cough, no pain with deep breath no shortness of breath no diaphoresis no exertional component it is not related to exertion and it is only present with cough There is no stiff neck there is no sore throat no difficulty swallowing no difficulty breathing, no abdominal pain no nausea vomiting or diarrhea no dysuria no rash Related Data Home Medications ?Medication ?Instructions ?Recorded ?Confirmed ascorbic acid (vitamin C) 500 mg 500 mg PO BID 08/29/22 08/29/22 tablet (Vitamin C) ferrous sulfate 325 mg (65 mg 325 mg PO BID 08/29/22 08/29/22 iron) tablet (FeroSul) lidocaine 5 % topical patch 0 patch topical 08/29/22 08/29/22 (Lidoderm) naproxen 500 mg tablet 0 mg PO 08/29/22 08/29/22 Previous Rx's ?Medication ?Instructions ?Recorded cetirizine 10 mg tablet (Zyrtec) 10 mg PO DAILY #20 tabs 02/02/21 diphenhydramine HCl 25 mg capsule 25 mg PO Q6H PRN itching #14 caps 02/02/21 (Benadryl) triamcinolone acetonide 0.025 % 1 appl topical BID #80 grams 02/02/21 topical ointment azithromycin 250 mg tablet See Rx Instructions PO .COMPLEX #6 09/27/24 (Zithromax Z-Berny) tabs Allergies Allergy/AdvReac Type Severity Reaction Status Date / Time No Known Allergies Allergy Verified 09/27/24 09:01 [No Known Allergies*] [facility] Past Medical History Source: nursing notes reviewed Medical History (Updated 09/27/24 @ 12:34 by SHARDA Bryan) Seasonal allergic reaction Social History Social History (Updated 08/29/22 @ 12:55 by RANJANA Perez) Advance Directives: No Advance Directives Information Provided: Yes Current occupational status: employed 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 Physical Exam ED Vital Signs: Vital Signs - 24 hr 09/27/24 08:59 Temperature 37.1 F L Pulse Rate 92 Respiratory Rate 20 Blood Pressure 117/81 Pulse Oximetry 98 Oxygen Delivery Method Room Air BMI result Body Mass Index 33.6 Temperature was rechecked and is 97.2 General appearance no acute distress, breathing easily, calm and cooperative The ears there is no redness or bulging of either tympanic membrane, there is no redness or narrowing of either canal Sinuses are nontender The eyes no redness or discharge The pharynx is clear without redness swelling or exudate voice normal, membranes moist The chest is clear with full symmetric equal breath sounds Heart no murmur Abdomen soft nontender Extremities full range motion x4 Skin no rash Course Course Course Narrative: Chest x-ray was negative EKG was normal sinus rhythm with a rate of 92, SD was normal, QT normal QRS duration 94, no ST elevations no acute ischemic changes Serology was negative for COVID and flu Well-appearing patient with worsening cough and sputum is diagnosed with bronchitis, treatment will be Zithromax, she has explained it is likely viral but could be early bacterial infection and she is discharged Medical Decision Making Lab Data Labs: Lab Results 09/27/24 Range/Units 09:42 Influenza Type A (PCR) NEGATIVE (Negative) Influenza Type B (PCR) NEGATIVE (Negative) RSV RNA Qual (PCR) NEGATIVE (Negative) SARS-CoV-2 RNA (RT-PCR) NEGATIVE (Negative) Discharge Plan Discharge Clinical Impression: Bronchitis Patient Disposition: Home, Self-Care Additional Instructions: Chest x-ray was normal EKG was normal COVID and flu tests were negative We are treating for bronchitis with Zithromax antibiotic Drink plenty of fluids Return any time any worse condition or concerns Prescriptions: New azithromycin [Zithromax Z-Berny] 250 mg tablet See Rx Instructions .ROUTE .COMPLEX Qty: 6 0RF Rx Instructions: For 250 mg dose pack: take 500 mg today (day 1), then 250 mg for 4 days (days 2-5) No Action diphenhydramine HCl [Benadryl] 25 mg capsule 25 mg PO Q6H PRN (Reason: itching) Qty: 14 0RF cetirizine [Zyrtec] 10 mg tablet 10 mg PO DAILY Qty: 20 0RF triamcinolone acetonide 0.025 % ointment 1 appl topical BID Qty: 80 0RF lidocaine [Lidoderm] 5 % adhesive patch,medicated 0 patch topical naproxen 500 mg tablet 0 mg PO ferrous sulfate [FeroSul] 325 mg (65 mg iron) tablet 325 mg PO BID ascorbic acid (vitamin C) [Vitamin C] 500 mg tablet 500 mg PO BID Print Language: Polish
[2024-09-27 12:42] VITALS: BP 117/81; PULSE 92; RESP 20; TEMP 37.1; O2SAT 98
== END 2024-09-27 12:42 | disposition home or self-care (01) ==
PROVIDERS: Emergency Provider Emergency Medicine; PCP Internal Medicine
DX: J40 Bronchitis, not specified as acute or chronic (principal); R05.9 Cough, unspecified; H92.01 Otalgia, right ear; Z03.818 Encounter for observation for suspected exposure to other biological agents ruled out
CPT/HCPCS: 0241U; 71046; 93005; 99283

== ENCOUNTER → 2024-09-27 08:58 | Outpatient (BNV) | payer MEDICAID, SELFPAY | PROVIDERS: Emergency Provider Emergency Medicine; PCP Internal Medicine; Visit Provider Internal Medicine Cardiovascular Disease | DX: R07.89 Other chest pain (principal); I45.19 Other right bundle-branch block; R94.31 Abnormal electrocardiogram [ECG] [EKG] | CPT/HCPCS: 93010 ==

== ENCOUNTER 2024-10-16 09:09 | Outpatient (REF) | payer MEDICAID, SELFPAY ==
--- OUTSIDE RECORDS SUMMARY | 2024-10-16 09:30 | XMS_ITS | Encounter Summary ---
Author Organization [employer] [facility] Address [address] [place] [address] [address], [place] [address] Care Team Providers Care Calibration Tester Name Role Phone Felisha Arzola MD Primary Care Provider + Encounter Details Date Type Department Care Team (Latest Contact Info) Description 11/05/2018 Abstract [facility] CONVERSIONS Dental, Provider, DDS Social History Tobacco Use Types Packs/Day Years Used Date Smoking Tobacco: Never Assessed Comments Unknown Sex and Gender Information Value Date Recorded Sex Assigned at Female 07/11/2022 10:31 AM EDT Legal Sex Female 10:31 AM EDT Gender Identity Female 07/11/2022 10:31 AM EDT Sexual Orientation Straight 07/11/2022 10 :31 AM EDT documented as of this encounter Plan of Treatment Upcoming Encounters Date Type Department Care Team (Late st Contact Info) Description 11/08/2024 10:00 AM EST Office Visit [facility] MEDICINE [address] [place] [address] Felisha Arzola MD [address] [place] [address] documented as of this encounter Visit Diagnoses Not on filedocumented in this encounter Care Teams Calibration Tester Relationship Specialty Start Date End Date Felisha Arzola MD [address] [place], [place] [phone] PCP - General Family Medicine 01/06/17 documented as of this encounter
--- OUTSIDE RECORDS SUMMARY | 2024-10-16 09:30 | XMS_ITS | Encounter Summary ---
Author Organization [employer] Address [address] [facility] [address] [place] [address] Care Team Providers Care Donor Recruiter Name Role Phone Felisha Arzola MD Primary Care Provider + Reason for Visit * Reason Onset Date Comments Letter for School/Work 08/18/2022 Encounter Details Date Type Department Care Team ([facility] st Contact Info) Description 08/18/2022 Telephone [facility] MEDICINE [address] [place], [place] [phone] Felisha Arzola MD [address] [place], [place] [phone] Letter for School/Work Social History Tobacco Use Types Packs/Day Years Used Date Smoking Tobacco: Never Assessed Comments Unknown Sex and Gender Information Value Date Recorded Sex Assigned at Female 07/11/2022 10:31 AM EDT Legal Sex Female 10:31 AM EDT Gender Identity Female 07/11/2022 10:31 AM EDT Sexual Orientation Straight 07/11/2022 10 :31 AM EDT COVID-19 Exposure Response Date Recorded In the last 10 days, have yo u been in contact with someone who was confirmed or suspected to have Coronavirus/COVID-19? No / Unsure 08/11/2022 2:07 PM EST documented as of this encounter Miscellaneous Notes * Telephone Encounter - Shahzad Arrieta - 08/25/2022 10:12 AM EST Tc from pt requesting a letter for program stating about her fracture foot Please contact pt at [phone] * Telephone Encounter - Uma Pham RN - 08/18/2022 2:36 PM EST Returned call. VM is full . Left another SMS notification to return call. * Telephone Encounter - Katty Aguilar - 08/18/2022 1:20 PM EST Tc from pt returning call * Telephone Encounter - Uma Pham RN - 08/18/2022 10:33 AM EST Unable to LVM due to full VM. Left SMS notification to return call at [phone]. * Telephone Encounter - Katty Aguilar - 08/18/2022 9:35 AM EST Symptom: Leg Swelling - Not From Injury Outcome: Schedule an urgent appointment (within 4 hours) or talk to a nurse or provider soon Reason: Leg swelling on one side only The caller accepted this outcome Pt states has gotten xrays done about a week ago and no results woke up today with leg swollen . * Telephone Encounter - Katty Aguilar - 08/18/2022 9:32 AM EST Tc from pt requesting xray results . States got xrays done at [facility] . documented in this encounter Plan of Treatment Upcoming Encounters Date Type Department Care Team (Late st Contact Info) Description 11/08/2024 10:00 AM EST Office Visit [facility] MEDICINE [address] [place] [address] Felisha Arzola MD [address] [place], [place] [phone] documented as of this encounter Visit Diagnoses Not on filedocumented in this encounter Care Teams Donor Recruiter Relationship Specialty Start Date End Date Felisha Arzola MD [address] [place] [phone] PCP - General Family Medicine 01/06/17 documented as of this encounter
--- OUTSIDE RECORDS SUMMARY | 2024-10-16 09:30 | XMS_ITS | Encounter Summary ---
Author Organization [facility] Address [address] [facility] [address] [place] [address] Care Team Providers Care Shank Paperer Name Role Phone Felisha Arzola MD Primary Care Provider + Encounter Details Date Type Department Care Team (Late st Contact Info) Description 08/18/2022 Orders Only [facility] MEDICINE [address] [place] [address] [phone] Gudelia Robb MD [address] [place], [place] [phone] Stress fracture of metatarsal bone of right foot, initial encounter (Primary Dx) Social History Tobacco Use Types Packs/Day Years [...] PM EST documented as of this encounter Plan of Treatment Upcoming Encounters Date Type Department Care Team (Late st Contact Info) Description 11/08/2024 10:00 AM EST Office Visit [facility] MEDICINE [address] [place] [phone] Felisha Arzola MD [address] [place], [place] [phone] documented as of this encounter Visit Diagnoses Diagnosis Stress fracture of metatarsal bone of right foot, initial encounter- Primary documented in this encounter Care Teams Shank Paperer Relationship Specialty Start Date End Date Felisha Arzola MD [address] [place] [phone] PCP - General Family Medicine 01/06/17 documented as of this encounter
--- OUTSIDE RECORDS SUMMARY | 2024-10-16 09:30 | XMS_ITS | Encounter Summary ---
Author Organization [employer] Address [address] [facility] [address] [place] [address] Care Team Providers Care Drafter Electronic Name Role Phone Felisha Arzola MD Primary Care Provider + Reason for Visit * Reason Onset Date Comments Results 06/29/2023 Encounter Details Date Type Department Care Team ([facility] st Contact Info) Description 06/29/2023 Telephone [facility] MEDICINE [address] [place], [place] [phone] Felisha Arzola MD [address] [place] [address] Results Social History Tobacco Use Types Packs/Day Years Used Date Smoking Tobacco: Never Passive Smoke Exposure: Never Smokeless Tobacco: Never Alcohol Use Standard Drinks/Week Comments Never 0 (1 standard drink = 0.6 oz pur e alcohol) Depression Answer Date Recorded Patient Health Questionnaire-9 Score 12 05/17/2023 Housing Stability Answer Date Recorded What is your housing situation today? I do not have housing (Staying with others, in a hotel, in a jail, living outside on the street, on a beach, in a car, or in a park 06/20/[address] you li ve. Do you have problems with any of the following? None of the above 06/20/2023 Food Insecurity Answer Date Recorded Within the past 12 months, y ou worried that your food would run out before you got money to buy more: Never True 06/26/2023 Within the past 12 months,th e food you bought just didn't last and you didn't have enough money to get more: Never True Transportation Answer Date Recorded In the past 12 months, has l ack of transportation kept you from medical appts, meetings, work or from getting things needed for daily living? Yes, it has kept me from medical appointments or getting medications. 06/20/2023 Utilities Answer Date Recorded In the past 12 months, has t he electric, gas, oil or water company threatened to shut off services in your home? No 06/26/2023 Depression Answer Date Recorded Patient Health Questionnaire-2 Score 3 05/17/2023 Comments Unknown Sex and Gender Information Value Date Recorded Sex Assigned at Female 07/11/2022 10:31 AM EDT Legal Sex Female 10:31 AM EDT Gender Identity Female 07/11/2022 10:31 AM EDT Sexual Orientation Straight 07/11/2022 10 :31 AM EDT documented as of this encounter Miscellaneous Notes * Telephone Encounter - Lesley Jackson RN - 07/07/2023 3:37 PM EDT Spoke with Provider to discuss letter request for additional month off from school. stated that she spoke with patient and gave her a letter regarding Amharic classes. Please refer to letter. No further action needed. * Telephone Encounter - Comfort Smith - 06/29/2023 9:30 AM EDT Tc from pt requesting a call back in regards results on XRAY done at [facility] 06/22/2023 documented in this encounter Plan of Treatment Upcoming Encounters Date Type Department Care Team (Late st Contact Info) Description 11/08/2024 10:00 AM EST Office Visit [facility] MEDICINE [address] [place] [address] Felisha Arzola MD [address] [place] [address] documented as of this encounter Visit Diagnoses Not on filedocumented in this encounter Additional Health Concerns Assessment Noted Time PHQ-9 Depression Total Score: 12 023 9:23 AM EDT documented as of this encounter Care Teams Drafter Electronic Relationship Specialty Start Date End Date Felisha Arzola MD [address] [place] [id number] PCP - General Family Medicine 01/06/17 documented as of this encounter
--- OUTSIDE RECORDS SUMMARY | 2024-10-16 09:30 | XMS_ITS | Encounter Summary ---
Author Organization [facility] Address [address] [place] [address] [address] Care Team Providers Care Biophysics Teacher Name Role Phone Felisha Arzola MD Primary Care Provider + Encounter Details Date Type Department Care Team (Latest Contact Info) Description 03/31/2022 Abstract [facility] CONVERSIONS Dental, Provider, DDS Social History [...] Description 11/08/2024 10:00 AM EST Office Visit [facility] MEDICINE [address] [place] [address] Felisha Arzola MD [address] [place] [address] documented as of this encounter Visit Diagnoses Not on filedocumented in this encounter Care Teams Biophysics Teacher Relationship Specialty Start Date End Date Felisha Arzola MD [address] [place], [place] [phone] PCP - General Family Medicine 01/06/17 documented as of this encounter
--- OUTSIDE RECORDS SUMMARY | 2024-10-16 09:30 | XMS_ITS | Encounter Summary ---
Author Organization [facility] [facility] Address [address] [place] [address] [address] [address] Care Team Providers Care Table Operator Name Role Phone Felisha Arzola MD Primary Care Provider + Encounter Details Date Type Department Care Team (Latest Contact Info) Description 05/06/2019 Abstract [facility] CONVERSIONS Dental, Provider, DDS Social History [...] Description 11/08/2024 10:00 AM EST Office Visit [facility] MEDICINE [address] [place] [address] Felisha Arzola MD [address] [place] [address] documented as of this encounter Visit Diagnoses Not on filedocumented in this encounter Care Teams Table Operator Relationship Specialty Start Date End Date Felisha Arzola MD [address] [place], [place] [phone] PCP - General Family Medicine 01/06/17 documented as of this encounter
--- OUTSIDE RECORDS SUMMARY | 2024-10-16 09:30 | XMS_ITS | Encounter Summary ---
Author Organization [employer] [facility] Address [address] [place] [address] [address] Care Team Providers Care Medical Anthropologist Name Role Phone Felisha Arzola MD Primary Care Provider + Encounter Details Date Type Department Care Team (Latest Contact Info) Description 12/04/[address] [facility] CONVERSIONS Dental, Provider, DDS Social History [...] Description 11/08/2024 10:00 AM EST Office Visit [facility] MEDICINE [address] [place] [address] Felisha Arzola MD [address] [place] [address] documented as of this encounter Visit Diagnoses Not on filedocumented in this encounter Care Teams Medical Anthropologist Relationship Specialty Start Date End Date Felisha Arzola MD [address] [place], [place] [phone] PCP - General Family Medicine 01/06/17 documented as of this encounter
--- OUTSIDE RECORDS SUMMARY | 2024-10-16 09:30 | XMS_ITS | Encounter Summary ---
Author Organization [employer] [facility] Address [address] [place] [address] Care Team Providers Care Bark Scaler Name Role Phone Felisha Arzola MD Primary Care Provider + Reason for Referral * Consultation (Routine) - Closed Specialty Diagnoses / Procedures Referred By Barbara callahan Referred To Contact Physical Therapy Diagnoses Acute pain of left shoulder Juliana Solis DO [address] [place] [address] Phone: tel: fax: [facility] [address] [place] [address] Phone: tel: fax: Referral ID Status Reason Start Date Expiration Date V isits Requested Visits Authorized [id number] Closed Specialty Services Required 09/23/2024 09/23/2025 20 20 Reason for Visit * Reason Comments Shoulder Pain Encounter Details Date Type Department Care Team (Late st Contact Info) Description 09/23/2024 10:20 AM EST Office Visit [facility] [address] [place] [address] Juliana Solis DO [address] [place] [address] Acute pain of left shoulder (Primary Dx); Anemia, unspecified type Social History Tobacco Use Types Packs/Day Years [...] with others, in a hotel, in a prison, living outside on the street, on a [...] AM EDT documented as of this encounter Last Filed Vital Signs Vital Sign Reading Time Taken Comments Blood Pressure 133/89 09/23/2024 10:48 AM EST Pulse 92 09/23/2024 10:48 AM EST Temperature 36.8 ??C (98.2 ??F) 09/23/2024 10:[address] Respiratory Rate 16 09/23/2024 10:48 AM EST Oxygen Saturation 100% 09/23/2024 10:48 AM EST Inhaled Oxygen Concentration - - Weight 103 kg (227 lb) 09/23/2024 10:48 AM EST Height - - Body Mass Index 33.52 05/17/2024 10:01 AM EDT documented in this encounter Progress Notes * Juliana Solis, DO - 09/23/2024 10:20 AM EST SUBJECTIVE Domitila Ramirez is a 33 y.o. female who presents for Sick Visit. She comes to [place] c/o shoulder pain for 1 mos. She called last week c/o L-shoulder pain x 3 weeks. She reported her pain was worse with movement and no improvement with advil and she was advised come to [place]. She c/o diffuse shoulder pain. She denies any radiation of pain. No numbness or tingling. Her pain is worse when she moves and thinks that it's her muscles. Her motion is less than her R arm. She feels less strong. She denies any trauma to the area. She is L-handed. 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 She needs RF of her eczema cream. She wants to get her anemia checked. She wants to have breast reduction but needs to have her labs done before surgery. History provided by: Patient digital watch assembler used: Yes Shoulder Pain Severity: Moderate Onset quality: Gradual Duration: 1 month Timing: Constant Progression: Worsening Chronicity: New Associated symptoms: no abdominal pain, no chest pain, no cough, no diarrhea, no fever, no headaches, no myalgias, no nausea, no shortness of breath and no vomiting Review of Systems Constitutional: Negative for activity change, appetite change, chills, fever and unexpected weight change. Respiratory: Negative for cough and shortness of breath. Cardiovascular: Negative for chest pain, palpitations and leg swelling. Gastrointestinal: Negative for abdominal pain, diarrhea, nausea and vomiting. Musculoskeletal: Positive for arthralgias. Negative for joint swelling, myalgias and neck stiffness. Neurological: Negative for weakness, numbness and headaches. Patient Active Problem List Diagnosis Anxiety Backache Chronic low back pain Excessive and frequent menstruation Goiter with hyperthyroidism Itching of ear Microcytic anemia Obesity Visual impairment Mid back pain, chronic Lichen simplex chronicus Seborrheic dermatitis Secondary hypertension Tachycardia Contraceptive surveillance Dental calculus Missing teeth, acquired Fractured dental mandaeism with loss of material No Known Allergies OBJECTIVE Visit Vitals BP 133/89 (BP Location: Right arm, Patient Position: Sitting, BP Cuff Size: Adult) Pulse 92 Temp 98.2 ??F (36.8 ??C) (Temporal) Resp 16 Wt 227 lb (103 kg) SpO2 100% BMI 33.52 kg/m?? Smoking Status Never BSA 2.24 m?? Physical Exam Constitutional: General: She is not in acute distress. Appearance: Normal appearance. Cardiovascular: Rate and Rhythm: Normal rate and regular rhythm. Heart sounds: Normal heart sounds. No murmur heard. Pulmonary: Effort: Pulmonary effort is normal. Breath sounds: Normal breath sounds. No wheezing or rhonchi. Musculoskeletal: Left shoulder: Tenderness present. No swelling, deformity or effusion. Decreased range of motion. Decreased strength. Comments: Mild diffuse TTP L shoulder Positive Angel, negative Neer's on L Positive Speed's test on L Neurological: General: No focal deficit present. Mental Status: She is alert and oriented to person, place, and time. Cranial Nerves: No cranial nerve deficit. Gait: Gait normal. Psychiatric: Mood and Affect: Mood normal. Assessment/Plan Diagnoses and all orders for this visit: Acute pain of left shoulder Likely 2/2 mm strain -provided reassurance -referred for L- shoulder XR -advised naprosyn BID x 1 week, alternate with tylenol prn -trial baclofen to help with mm spasm -trial diclofenac gel prn -referred to PT -advised contact [facility] if no improvement, she agrees with plans Anemia, unspecified type Mild anemia -repeat CBC with iron studies --Follow-up with PCP as scheduled or sooner prn-- Current Outpatient Medications: acetaminophen (Tylenol 8 Hour) 650 MG ER tablet, Take 1 tablet (650 mg) by mouth every 8 (eight) hours if needed for mild pain. Do not crush, chew, or split., Disp: 40 tablet, Rfl: 1 baclofen (Lioresal) 10 MG tablet, Take 1 tablet (10 mg) by mouth if needed in the morning, at noon,and at bedtime for muscle spasms., Disp: 60 tablet, Rfl: 1 betamethasone valerate (Valisone) 0.1 % cream, Apply topically if needed in the morning and at bedtime (dryness)., Disp: 45 g, Rfl: 2 Blood Pressure kit, , Disp: , Rfl: Blood Pressure Monitoring (Omron 3 Series BP Monitor) device, USE TO CHECK BLOOD PRESSURE DAILY, Disp: , Rfl: carbamide peroxide (Debrox) 6.5 % otic solution, 5 drops every 12 (twelve) hours. instill 5 drop byotic route 2 times every day into affected ear(s), Disp: , Rfl: cetirizine (ZyrTEC) 10 MG tablet, Take 1 tablet by mouth 1 (one) time each day., Disp: , Rfl: Diclofenac Sodium 1 % gel, Apply 2 g topically if needed in the morning, at noon, in the evening, and at bedtime (pain)., Disp: 150 g, Rfl: 3 hydrOXYzine pamoate (Vistaril) 25 MG capsule, Take 1 capsule (25 mg) by mouth every 6 (six) hours if needed for anxiety., Disp: 90 capsule, Rfl: 0 ketoconazole (NIZOral) 2 % shampoo, APPLY TO THE AFFECTED AREA(S) TOPICALLY TWICE A WEEK, Disp: 120mL, Rfl: 1 lidocaine (Lidoderm) 5 % patch, APPLY 1 PATCH TOPICALLY TO SKIN, LEAVE ON FOR 12 HOURS AND OFF FOR 12 HOURS DIRECTED, Disp: 10 patch, Rfl: 5 methIMAzole (Tapazole) 10 MG tablet, Take 20 mg by mouth 2 times daily., Disp: , Rfl: metoprolol succinate XL (Toprol XL) 50 MG 24 hr tablet, Take 1 tablet (50 mg) by mouth in the morning. Do not crush or chew., Disp: 90 tablet, Rfl: 3 naproxen (Naprosyn) 500 MG tablet, Take 1 tablet (500 mg) by mouth if needed in the morning and at bedtime for mild pain., Disp: 40 tablet, Rfl: 1 norethindrone (Micronor) 0.35 MG tablet, Take 1 tablet (0.35 mg) by mouth in the morning. 90 day supply please, Disp: 84 tablet, Rfl: 3 traZODone (Desyrel) 50 MG tablet, Take 1 tablet by mouth at bed time., Disp: , Rfl: Scribe Attestation: Leonardo Minor, am serving as a scribe to document services personally performed by Juliana Eubanks, based on the patient's response to questions by provider and provider's statements to me. 09/23/24 11:51 AM Physicians Attestation: Juliana Minor DO, have reviewed the information by the scribe, Leonardo Cannon, for accuracy and agree with its content. documented in this encounter Plan of Treatment Upcoming Encounters Date Type Department Care Team (Late st Contact Info) Description 11/08/2024 10:00 AM EST Office Visit [facility] [address] [place] [address] Felisha Arzola MD [address] [place] [address] Scheduled Orders Name Type Priority Associated Diagnoses Orde r Schedule Ferritin Lab Routine Anemia, unspecified type Expected: 09/23/2024, Expires: 09/23/2025 Iron And Total Iron Binding Capacity Lab Routine Anemia, unspecified type Expected: 09/23/2024, Expires: 09/23/2025 CBC Lab Routine Anemia, unspecified type Expected: 09/23/2024, Expires: 09/23/2025 Scheduled Referrals Name Type Priority Associated Diagnoses Orde r Schedule Referral to Physical Therapy Outpatient Referral Routine Acute pain of left shoulder Expected: 09/23/2024 (Approximate), Expires: 09/23/2025 documented as of this encounter Procedures Procedure Name Priority Date/Time Associated Diagnosis Comments XR SHOULDER 2+ VIEWS LEFT Routine 09/24/2024 9:02 AM EST Acute pain of left shoulder documented in this encounter Results * XR Shoulder 2+ Views Left (09/24/2024 9:02 AM EST) Anatomical Region Laterality Modality Upper Extremities, Shoulder Left Radi ographic Imaging 09/24/2024 9:02 AM EST Narrative 09/24/2024 10:50 AM EST ?[facility] ?[address] ?[place] [address] ?XRay Report ? Signed ? Patient: Stovall Ashley,Domitila M ?MR#: [id number] ?? [id number] ? : 1990 ?Acct:[id number] ? Age/Sex: 33 / F ?ADM Date: 01/14/25 ? Loc: HO.HHCX ? Attending Dr: Juliana Solis DO ? Ordering Physician: Juliana Solis DO ?? Date of Service: 09/24/24 ?? Procedure(s): XR shoulder LT min 2V ?? Accession Number(s): [id number] ? cc: Juliana Solis DO ? EXAMINATION: ?? XR SHOULDER, LEFT ? CLINICAL INFORMATION: ?? persistent L shoulder pain with decreased ROM ? COMPARISON: ?? None available. ? TECHNIQUE: ?? AP external rotation, Grashey, scapular Y, and axillary views of the ?? left shoulder. ? FINDINGS: ?? The bones and soft tissues are normal. No fracture. Glenohumeral and ?? acromioclavicular alignment is anatomic with normal joint space. No ?? abnormal soft tissue calcifications. ? XR/XR shoulder LT min 2V ?? IMPRESSION: ?? Normal left shoulder. ? Electronically signed by: ??Suraj Lilly MD ??09/24/2024 10:48 AM EST RP ? Dictated By: ?Suraj Lilly MD ? Signed By: ?<Electronically signed by Suraj Lilly MD in OV> ?09/24/24 1048 ? DD/ 0902 ? TD/TT: 09/24/24 0948 ? Cadet Deck: ? Procedure Note Marlene, Neymar - 09/24/[address] [address] XRay Report Signed Patient: Domitila Pina MMR#: [id number] : 1990Acct:[id number] Age/Sex: 33 / FADM Date: 09/24/24 Loc: HO.HHCX Attending Dr: Juliana Solis DO Ordering Physician: Juliana Solis DO Date of Service: 09/24/24 Procedure(s): XR shoulder LT min 2V Accession Number(s): [id number] cc: Juliana Solis DO EXAMINATION: XR SHOULDER, LEFT CLINICAL INFORMATION: persistent L shoulder pain with decreased ROM COMPARISON: None available. TECHNIQUE: AP external rotation, Grashey, scapular Y, and axillary views of the left shoulder. FINDINGS: The bones and soft tissues are normal. No fracture. Glenohumeral and acromioclavicular alignment is anatomic with normal joint space. No abnormal soft tissue calcifications. XR/XR shoulder LT min 2V IMPRESSION: Normal left shoulder. Electronically signed by: Suraj Lilly MD 09/24/2024 10:48 AM EST Dictated By: Suraj Lilly MD Signed By: <Electronically signed by Suraj Lilly MD in OV> 09/24/24 1048 DD/ 0902 TD/TT: 09/24/24 0948 Cadet Deck: Juliana Solis DO IMG XR PROCEDURES Final Resu lt documented in this encounter Visit Diagnoses Diagnosis Acute pain of left shoulder- Primary Anemia, unspecified type documented in this encounter Additional Health Concerns Assessment Noted Time PHQ-9 Depression Total Score: 12 023 9:23 AM EDT documented as of this encounter Care Teams Bark Scaler Relationship Specialty Start Date End Date Felisha Arzoal MD [address] [place] [id number] PCP - General Family Medicine 01/06/17 documented as of this encounter
--- OUTSIDE RECORDS SUMMARY | 2024-10-16 09:30 | XMS_ITS | Encounter Summary ---
Author Organization [employer] Address [address] [place] [address] Care Team Providers Care Enterprise Account Manager Name Role Phone Felisha Arzola MD Primary Care Provider + Encounter Details Date Type Department Care Team (Late st Contact Info) Description 09/19/2024 11:00 AM EST Office Visit [facility] [address] [place], [place] [phone] Grady, Rachel, OD [address] [place], [place] [phone] High myopia, bilateral (Primary Dx) Social History Tobacco Use Types [...] with others, in a hotel, in a usp, living outside on the street, on a [...] AM EDT documented as of this encounter Progress Notes * Rachel Rasmussen OD - 09/19/2024 11:00 AM EST Contact lens (CL) order: Total charge: $140 documented in this encounter Plan of Treatment Upcoming Encounters Date Type Department Care Team (Late st Contact Info) Description 11/08/2024 10:00 AM EST Office Visit [facility] [address] [place], [place] [phone] Felisha Arzola MD [address] [place] [address] documented as of this encounter Visit Diagnoses Diagnosis High myopia, bilateral- Primary Myopia documented in this encounter Additional Health Concerns Assessment Noted Time PHQ-9 Depression Total Score: 12 023 9:23 AM EDT documented as of this encounter Care Teams Enterprise Account Manager Relationship Specialty Start Date End Date Felisha Arzola MD [address] [place] [address] PCP - General Family Medicine 01/06/17 documented as of this encounter
--- OUTSIDE RECORDS SUMMARY | 2024-10-16 09:30 | XMS_ITS | Clinical Summary ---
Author Organization [employer] Address [address] [facility] 7[address] [place] [address] Care Team Providers Care Dry Food Products Mixer Name Role Phone Felisha Arzola MD Primary Care Provider + Allergies No known active allergies Medications carbamide peroxide (Debrox) 6.5 % otic solution 5 drops every 12 (twelve) hours. instill 5 drop by otic route 2 times every day into affected ear(s) 022 Active cetirizine (ZyrTEC) 10 MG tablet Take 1 tablet by mouth 1 (one) time each day. 021 Active Blood Pressure kit Active traZODone (Desyrel) 50 MG tablet Take 1 tablet by mouth at bed time. 019 Active Blood Pressure Monitoring (Omron 3 Series BP Monitor) device USE TO CHECK BLOOD PRESSURE DAILY 022 Active ketoconazole (NIZOral) 2 % shampooIndicatio ns:Seborrheic dermatitis APPLY TO THE AFFECTED AREA(S) TOPICALLY TWICE A WEEK 120 mL 1 023 Active lidocaine (Lidoderm) 5 % patch APPLY 1 PATCH TOPICALLY TO SKIN, LEAVE ON FOR 12 HOURS AND OFF FOR 12 HOURS DIRECTED 10 patch 5 024 Active metoprolol succinate XL (Toprol XL) 50 MG 24 hr tabletIndication s:Secondary hypertension Take 1 tablet (50 mg) by mouth in the morning. Do not crush or chew. 90 tablet 3 024 2024 Active norethindrone (Micronor) 0.35 MG tabletIndication s:Encounter for surveillance of other contraceptive Take 1 tablet (0.35 mg) by mouth in the morning. 90 day supply please 84 tablet 3 024 Active methIMAzole (Tapazole) 10 MG tablet Take 20 mg by mouth 2 times daily. 024 Active hydrOXYzine pamoate (Vistaril) 25 MG capsule Take 1 capsule (25 mg) by mouth every 6 (six) hours if needed for anxiety. 90 capsule 024 Active acetaminophen (Tylenol 8 Hour) 650 MG ER tablet Take 1 tablet (650 mg) by mouth every 8 (eight) hours if needed for mild pain. Do not crush, chew, or split. 40 tablet 1 025 2024 Active baclofen (Lioresal) 10 MG tablet Take 1 tablet (10 mg) by mouth if needed in the morning, at noon, and at bedtime for muscle spasms. 60 tablet 1 025 2024 Active Diclofenac Sodium 1 % gel Apply 2 g topically if needed in the morning, at noon, in the evening, and at bedtime (pain). 150 g 3 025 Active betamethasone valerate (Valisone) 0.1 % cream Apply topically if needed in the morning and at bedtime (dryness). 45 g 2 025 Active naproxen (Naprosyn) 500 MG tablet Take 1 tablet (500 mg) by mouth if needed in the morning and at bedtime for mild pain. 40 tablet 1 025 Active naproxen (Naprosyn) 500 MG tablet 500 mg at onset of bleeding and three to five hours later, then 500 mg twice a day for 4-5 days or until menstruation ceases 021 2024 Discontinued(R eorder (will not trigger notification to Pharmacy)) ascorbic acid (Vitamin C) 500 MG tablet Take 500 mg by mouth in the morning and at bedtime. 022 2024 Discontinued tiZANidine (Zanaflex) 2 MG tabletIndication s:Acute midline thoracic back pain Take 1 tablet (2 mg) by mouth every 8 (eight) hours if needed for muscle spasms for up to 10 days. 30 tablet 023 2024 Discontinued ibuprofen 600 MG tablet Take 600 mg by mouth if needed. 024 2024 Discontinued betamethasone valerate (Valisone) 0.1 % cream Apply topically if needed in the morning and at bedtime (dryness). 45 g 2 024 2024 Discontinued(R eorder (will not trigger notification to Pharmacy)) Active Problems Problem Noted Date Diagnosed Date Fractured dental church with loss of materi al 03/29/2024 Dental calculus 11/02/2023 Missing teeth, acquired 11/02/2023 Contraceptive surveillance 10/27/2023 Assessment & Plan (10/27/2023 12:39 PM EST): Pt doing well on progesterone pill, refills sent to pharmacy Secondary hypertension 06/22/2023 Assessment & Plan (09/29/2023 1:41 PM EST): ? Sec to hyperthyroidism?BP is controlled. Continue Metoprolol XL 25mg Assessment & Plan (06/22/2023 10:00 AM EDT): Pt here as a walk in , noticed her blood pressure to be elevated on multiple ocasions. Elevated heart rate Most recent BMP 05/18/2023 Normal. Suppressed TSH ? Hyperthyroidism ? Plan: Start Toprol XL 25 mg po daily follow up with PCP in 1 to 2 weeks. Might need work up for secondary causes of HTN Referral to endocrinology Tachycardia 06/22/2023 Assessment & Plan (10/27/2023 12:36 PM EST): S/s to hyperthyroidism Increase metoprolol to 50mg /day EKG shows sign of tachycardia order labs Assessment & Plan (09/29/2023 1:42 PM EST): Sec to hyperthyroidism, previous w/u is neg for PE/ACS, she;s mainly asymptomatic today. Reminded her the importance of Fu with endo and with me She'll get BW today and continue metoprolol Assessment & Plan (06/22/2023 10:40 AM EDT): Pt's EKG with sinus tachycardia Etiology ? Anxiety vs hyperthyroidism ? Pt also hypertensive Plan: Start Metoprolol XL 25 mg po daily Endocrinology referral for Hyperthyroidism D-dimer, although level of suspicion for PE is low but pt is on micronor Follow up with PCP in 1 week Lichen simplex chronicus 02/24/2023 Seborrheic dermatitis 02/24/2023 Mid back pain, chronic 12/02/2022 Assessment & Plan (07/07/2023 1:46 PM EDT): Unclear if related to menorrhagia vs muscle spasm Refer to PT Counseled wt reduction Assessment & Plan (12/02/2022 4:51 PM EDT): s/p PT two years ago, she will continue going to the gym recommended weight reduction she is currently wearing bra size 38 DDD recommended to get sized for a bra will FU after BMI less than 33 to see if she stilll needs roeferral to breast reduction surgery take tylenol PRN Itching of ear 08/11/2022 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 She's off levothyroxine now. Repeat TFT' now that pt off meds for at least 2-3 wks Will fu in 4 wks w/ labs to see if needs to start a different medications ie. methimazole Fu with endo in january Assessment & Plan (09/29/2023 1:39 PM EST): DC levothyroxine completely, I reminded her of recommendation to dc on Jul. Continue metoprolol, sxs partially improved. Check labs and thyroid US rs for 10/06, I gave her order with test info. Endo referral faxed again to Dr Gunn's office, patient has info to fu with them for appt. FU with me in Assessment & Plan (07/07/2023 1:43 PM EDT): Thyroid US pending, pt given information to schedule her appointment Assessment & Plan (12/02/2022 4:50 PM EDT): Order TSH Anxiety 05/08/2018 Assessment & Plan (05/17/2023 1:33 PM EDT): Seems to be exacerbated by multiple tasks at the same time, housing instability. 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 Otherwise feels safe at home and is able to reach out for safety. Backache 05/08/2018 Assessment & Plan (06/22/2023 10:41 AM EDT): Acute on chronic mid posterior thoracic, exam indicative of muscle spasm Plan: Acetaminophen, muscle relaxant, might need to discuss with PCP macromastia as a cause Plain films of Thoracic spine Follow up with PCP Excessive and frequent menstruation 05/08/2018 Microcytic anemia 05/08/2018 Chronic low back pain 01/09/2017 Obesity 01/09/2017 Assessment & Plan (12/02/2022 4:50 PM EDT): Counseled regarding weight reduction. She will continue going to the gym refer to dietitian counseled regarding decreased calorie intake Visual impairment 01/09/2017 Resolved Problems Problem Noted Date Diagnosed Date Resolved Date Abnormal thyroid blood test 07/07/2023 09/29/2023 Assessment & Plan (07/07/2023 1:46 PM EDT): Most likely hyperthyroidism Pt needs to complete TFT, order given today Thyroid US and endo referral given today so she can schedule her mehran Weakness 07/07/2023 09/29/2023 Assessment & Plan (07/07/2023 1:48 PM EDT): Unclear if related to hyperthyroidism Vs depression I gave her the order for labs ordered last month Given Pt new conditions as below, 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 Check home BP BIW and prn CP/PEREZ/HUIZAR, will fu in 1m with BP readings. Non smoking patient. Assessment & Plan (12/02/2022 4:52 PM EDT): Counseled regarding weight reduction and decreased salt intake FU in 4 months. Initial patient encounter 08/11/2022 Encounters Date Type Department Care Team Description 09/23/2024 10:20 AM EST Office Visit [facility] [address] [place] [address] Juliana Solis DO Acute pain of left shoulder (Primary Dx); Anemia, unspecified type 09/19/2024 11:00 AM EST Office Visit [facility] [address] [place] [address] Grady, Rachel, OD High myopia, bilateral (Primary Dx) 09/16/2024 Telephone [facility] [address] [place] [address] Felisha Arzola MD Nurse Triage 08/16/2024 Telephone [facility] [address] [place] [address] Felisha Arzola MD Nurse Triage 07/18/2024 10:00 AM EST Office Visit [facility] [address] [place] [address] Flo Robb Dental calculus (Primary Dx) from Last 3 Months Immunizations Name Administration Dates Next Due DTaP 06/28/2016 Pfizer Covid-19 Vaccine 12+ 05/19/2021, Pfizer Covid-19 Vaccine 12+ Bivalent 10/03/2022 Family History Medical History Relation Name Comments Brain cancer Father Diabetes Mother Relation Name Status Comments Father Mother Social History Tobacco Use Types Packs/Day Years Used Date Smoking Tobacco: Never Passive Smoke Exposure: Never Smokeless Tobacco: Never Tobacco Cessation:Counseling Given: Not Answered Alcohol Use Standard Drinks/Week Comments Never 0 (1 standard drink = 0.6 oz pur e alcohol) Depression Answer Date Recorded Patient Health Questionnaire-9 Score 12 05/17/2023 Housing Stability Answer Date Recorded What is your housing situation today? I do not have housing (Staying with others, in a hotel, in a residential, living outside on the street, on a [...] Orientation Straight 07/11/2022 10 :31 AM EDT Last Filed Vital Signs Vital Sign Reading Time Taken Comments Blood Pressure 133/89 09/23/2024 10:48 AM EST Pulse 92 09/23/2024 10:48 AM EST Temperature 36.8 ??C (98.2 ??F) 09/23/2024 10:[address] Respiratory Rate 16 09/23/2024 10:48 AM EST Oxygen Saturation 100% 09/23/2024 10:48 AM EST Inhaled Oxygen Concentration - - Weight 103 kg (227 lb) 09/23/2024 10:48 AM EST Height 175.3 cm (5' 9 ) 05/17/2024 10:01 AM EDT Body Mass Index 33.52 05/17/2024 10:01 AM EDT Plan of Treatment Upcoming Encounters Date Type Department Care Team (Late st Contact Info) Description 11/08/2024 10:00 AM EST Office Visit [facility] [address] [place] [address] Felisha Arzola MD [address] [place] [address] Health Maintenance Due Date Last Done Comments Alcohol/Substance Use Screening 2001 Hepatitis C Screening 12/14/2007 Hepatitis B Vaccines (1 of 3 - 19+ 3-dose series) 2008 Depression Monitoring (PHQ-9) 11/15/2023 05/17/2023, 05/17/2023 COVID-19 Vaccine ( season) 2024 10/03/2022, 05/19/2021, 04/28/2021 Influenza Vaccine (#1) 2024 Depression Screening 05/17/2024 05/17/2023, 05/17/20 SDOH Screening 05/17/2024 05/17/2023 Dental Oral Exam 09/30/2024 03/29/2024, , 12/04/2020, Additional history exists Dental X-Ray: Bitewings 11/03/2024 11/02/19 24, 03/31/2022, 12/04/2020, Additional history exists Family Planning (PISQ) 11/19/2024 11/20/2023 Dental Prophylaxis 01/16/2025 07/18/2024, 0 11/02/2023, 03/31/2022, Additional history exists Dental X-Ray: Full Mouth 04/01/2025 03/31/2022, 10/13 Tobacco Screening 09/23/2025 09/23/2024 DTaP/Tdap/Td Vaccines (2 - Tdap) 06/28/2026 06/28/2016 Cervical Cancer Screening 06/30/2026 HPV/Cotest 06/30/2026 06/30/2021 Pap Smear 06/30/2026 06/30/2021 Lipid Panel 05/18/2028 05/18/2023 Zoster Vaccines (1 of 2) 12/14/2039 RSV Patients and Patients Aged 60 years or older (1 - 1-dose 75+ series) 2064 HIV Screening Completed 04/01/2021 HIB Vaccines Aged Out No longer eligi ble based on patient's age to complete this topic HPV Vaccines Aged Out No longer eligi ble based on patient's age to complete this topic Hepatitis A Vaccines Aged Out No long er eligible based on patient's age to complete this topic IPV Vaccines Aged Out No longer eligi ble based on patient's age to complete this topic Meningococcal Vaccine Aged Out No nilsa shree eligible based on patient's age to complete this topic Pneumococcal Vaccine: Pediatrics (0 to 5 Years) and At-Risk Patients (6 to 49) Years) Aged Out No longer eligible based on patient's age to complete this topic RSV under 20 months Aged Out No longe r eligible based on patient's age to complete this topic Rotavirus Vaccines Aged Out No longer eligible based on patient's age to complete this topic Procedures Procedure Name Priority Date/Time Associated Diagnosis Comments XR SHOULDER 2+ VIEWS LEFT Routine 09/24/2024 9:02 AM EST Acute pain of left shoulder ORAL HYGIENE INSTRUCTIONS Routine 07/18/2024 10:00 AM EST PROPHYLAXIS - ADULT Routine 07/18/2024 1 0:00 AM EST ADJUNCTIVE GENERAL SERVICES - PROFESSIONAL VISITS - CASE PRESENTATION, SUBSEQUENT TO DETAILED AND EXTENSIVE TREATMENT PLANNING Routine 07/18/2024 10:00 AM EST PERIODIC ORAL EVALUATION - ESTABLISHED PATIENT Routine 03/29/2024 1:00 PM EDT BITEWINGS - 4 RADIOGRAPHIC IMAGES Routine 11/02/2023 1:00 PM EST Dental calculus Missing teeth, acquired LIPID PANEL WITH REFLEX TO DIRECT LDL Routine 05/18/2023 8:54 AM EDT Class 2 obesity due to excess calories without serious comorbidity with body mass index (BMI) of 35.0 to 35.9 in adult DIAGNOSTIC - DIAGNOSTIC IMAGING - INTRAORAL - COMPREHENSIVE SERIES OF RADIOGRAPHIC IMAGES Routine 03/31/2022 12:00 AM EDT THINPREP IMAGING PAP AND HPV MRNA E6/E7 WITH REFLEX TO HPV 16,18/45 Routine 06/30/2021 10:53 AM EDT ALANNA HISTORICAL HIV AB/AG Routine 04/01/2021 1:20 PM EDT from Last 3 Months or Most Recently Relevant to Health Maintenance Results * XR Shoulder 2+ Views Left (09/24/2024 9:02 AM EST) Anatomical Region Laterality Modality Upper Extremities, Shoulder Left Radi ographic Imaging 09/24/2024 9:02 AM EST Narrative 09/24/2024 10:50 AM EST ?[facility] ?[address] ?[place] [address] ?XRay Report ? Signed ? Patient: Sia RodriguesneDomitila ?MR#: [id number] ?? [id number] ? : 1990 ?Acct:[id number] ? Age/Sex: 33 / F ?ADM Date: 09/24/24 ? Loc: HO.HHCX ? Attending Dr: Juliana Solis DO ? Ordering Physician: Juliana Solis DO ?? Date of Service: 09/24/24 ?? Procedure(s): XR shoulder LT min 2V ?? Accession Number(s): [id number] ? cc: Juliana Solis DO ? EXAMINATION: [...] 10:48 AM EST RP ? Dictated By: ?uSraj Lilly MD ? Signed By: ?<Electronically signed by Suraj Lilly MD in OV> ?09/24/24 1048 ? DD/ 0902 ? TD/TT: 09/24/24 0948 ? Insurance Verification Specialist: ? Procedure Note Donotmarkter, Image - 09/24/2024 [facility] [address] [place] [address] XRay Report Signed Patient: Domitila Pina MMR#: [id number] : 1990Acct:[id number] Age/Sex: 33 / FADM Date: 09/24/24 Loc: HO.HHCX Attending Dr: Juliana Solis DO Ordering Physician: Juliana Solis DO Date of Service: 09/24/24 Procedure(s): XR shoulder LT min 2V Accession Number(s): [id number] cc: Juliana Solis DO EXAMINATION: XR SHOULDER, [...] 09/24/24 1048 DD/ 0902 TD/TT: 09/24/24 0948 Insurance Verification Specialist: us Juliana Solis DO IMG XR PROCEDURES Final Resu lt * Lipid Panel with Reflex to Direct LDL (05/18/2023 8:54 AM EDT) Triglycerides 89 <150 mg/dL [facility] Comment:Desirable Triglyceri de: less than 150 mg/dLBorderline High Triglyceride 150-199 mg/dLHigh Triglyceride: 200-499 mg/dLVery High Triglyceride: greater than or equal to 5OO mg/dL Cholesterol 145 <200 mg/dL [facility] Comment:Desirable Cholestero l: less than 200 mg/dLBorderline High Cholesterol: 200-239 mg/dLHigh Cholesterol: greater than 239 mg/dL LDL Cholesterol Calculated 87 <100 mg/dL [facility] Comment:Desirable LDL: less than 100 mg/dLNear Optimal/Above Optimal LDL: 110- 129 mg/dLBorderline High LDL: 130-159 mg/dLHigh LDL: 160-189 mg/dLVery High LDL: greater than or equal to 190 mg/dL HDL Cholesterol 41 >40 mg/dL [facility] Comment:Desirable HDL: great er than 40 mg/dL Note: This HDL assay may give artificially low results in patients with liver disease. 05/18/2023 8:54 AM EDT 05/18/2023 11:05 AM EDT Felisha Arzola MD LAB BLOOD ORDERABLES Fin al Result [facility] [address] [place] [address] [phone] * THINPREP TIS PAP AND HPV mRNA E6/E7 REFLEX HPV 16,18/45 (06/30/2021 10:53 AM EDT) Clinical Information: None given [facility] COMMENT SEE COMMENT [facility] Comment: EXPLANATORY NOTE: ? The Pap is a screening test for cervical cancer. It is ?? not a diagnostic test and is subject to false negative ?? and false positive results. It is most reliable when a ?? satisfactory sample, regularly obtained, is submitted ?? with relevant clinical findings and history, and when ?? the Pap result is evaluated along with historic and ?? current clinical information. ?? COMMENT: This Pap test has been evaluated with computer assisted technology. [facility] Outside Sales Advertising Executive: SEE COMMENT [facility] Comment: WAC, CT(ASCP) CT screening location: [address] ??[address] HPV nRNA E6/E7 Not Detected Not Detected [facility] Comment: Methodology: Patrol Officer-Mediated Amplification This assay detects E6/E7 viral messenger RNA (mRNA) from 14 high-risk HPV types (16,18,31,33,35,39,45,51,52,56,58,59,66,68). ? The analytical performance characteristics of this assay have been determined by [employer]. The modifications have not been cleared or approved by the FDA. This assay has been validated pursuant to the CLIA regulations and is used for clinical purposes. ?? For additional information, please refer to http://education.[employer]/faq/PUC802r0 (This link if provided for information/ educational purposes only.) Interpretation/Re sult: Negative for intraepithelial lesion or malignancy. [facility] LMP: 06/19/2021 [facility] Prev. BX: NONE GIVEN [facility] Prev. PAP: 4Y ? [facility] SOURCE: None given [facility] Statement Of Adequacy: SEE COMMENT [facility] Comment: Satisfactory for evaluation. Endocervical/transformation zone component present. 06/30/2021 10:5 3 AM EDT Jessica SANCHEZ LAB PATHOLOGY ORDERABLES Final Result [facility] [address] * HIV AB/AG (04/01/2021 1:20 PM EDT) HIV AB/AG Nonreactive Nonreactive [facility] Comment: HIV-1 p24 Ag and/or HIV-1/HIV-2 Ab not detected. ?? A test result that is nonreactive does not exclude the possibility of exposure to or infection with HIV-1 and/or HIV-2. Nonreactive results in this assay for individuals with prior exposure to HIV-1 and/or HIV-2 may be due to antigen and antibody levels that are below the limit of detection of this assay. ?? The [employer] Motor Vehicle Technician HIV Ag/Ab Combo assay result and supplemental assay results should be interpreted in conjunction with the patient's clinical presentation, history and other laboratory results. ??If the results are inconsistent with clinical evidence, additional testing is suggested to confirm the result. 04/01/2021 1:20 PM EDT Felisha Arzola MD HISTORICAL/NON ORDERABLE LABS Final Result [facility] [address] [place] [address], from Last 3 Months or Most Recently Relevant to Health Maintenance Insurance [facility] C3 DENTAL-[facility] MEDICAID STAND ADULT Care Teams Dry Food Products Mixer Relationship Specialty Start Date End Date Felisha Arzola MD [address] [place] [phone] PCP - General Family Medicine 01/06/17
--- OUTSIDE RECORDS SUMMARY | 2024-10-16 09:30 | XMS_ITS | Encounter Summary ---
Author Organization [employer] Address [address] [facility] [address] [place] [address] Care Team Providers Care Clam Sorter Name Role Phone Felisha Arzola MD Primary Care Provider + Encounter Details Date Type Department Care Team ([facility] st Contact Info) Description 11/30/2023 Telephone [facility] [address] [place], [place] [phone] Felisha Arzola MD [address] [place], [place] [phone] Social History Tobacco Use Types Packs/Day Years [...] with others, in a hotel, in a fdc, living outside on the street, on a [...] Description 11/08/2024 10:00 AM EST Office Visit [facility] [address] [place] [address] Felisha Arzola MD [address] [place] [address] documented as of this encounter Visit Diagnoses Not on filedocumented in this encounter Additional Health Concerns Assessment Noted Time PHQ-9 Depression Total Score: 12 023 9:23 AM EDT documented as of this encounter Care Teams Clam Sorter Relationship Specialty Start Date End Date Felisha Arzola MD [address] [place] [phone] PCP - General Family Medicine 01/06/17 documented as of this encounter
--- OUTSIDE RECORDS SUMMARY | 2024-10-16 09:30 | XMS_ITS | Encounter Summary ---
Author Organization [employer] Address [address] [facility] 7t [place] [address] Care Team Providers Care Waste Collector Name Role Phone Felisha Arzola MD Primary Care Provider + Reason for Visit * Reason Onset Date Comments Nurse Triage 09/16/2024 Encounter Details Date Type Department Care Team ([facility] st Contact Info) Description 09/16/2024 Telephone [facility] [address] [place], [place] [phone] Felisha Arzola MD [address] [place], [place] [phone] Nurse Triage Social History Tobacco Use Types Packs/Day Years [...] with others, in a hotel, in a assisted, living outside on the street, on a [...] encounter Miscellaneous Notes * Telephone Encounter - Cleopatra Metz LPN - 09/16/2024 2:48 PM EST Triage call placed with S # [id number] [facility]. Triage call to patient for shoulder pain. Patient reports left arm and chest pain present with movement and worse when waking up in the morning onset 3 weeks ago. No accident or injury reported. Patient unable to confirm nausea or sweating as she reports that she is due for her period. Difficult totriage due to background noise. Patient confirms that arm ( shoulder) pain is worsened by movement and that she has been taking Advil with no noted improvement. No shortness of breath or nausea at time of call. Disposition reviewed and patient in agreement with plan. [facility] advised for evaluation now. Hours and availability reviewed and insurance verified at time of call. Patient verbalized understanding and in agreement with plan. Protocol Used: Chest Pain (Adult) Protocol-Based Disposition: See in Office or Video Visit Today Video visit not offered Positive Triage Question: * All other patients with chest pain (Exception: Fleeting chest pain lasting a few seconds.) * All higher-acuity triage questions were negative Care Advice Discussed: * Reasons To Call Back - Chest pain lasts over 5 minutes - Difficulty breathing or unusual sweating occurs - You become worse * Telephone Encounter - Zeeshan Briggs - 09/16/2024 2:28 PM EST Symptom: Shoulder Pain - Not From Injury Outcome: Schedule an urgent appointment (within 1 hour) or talk to a nurse or provider soon Reason: Can't use the shoulder normally The caller accepted this outcome. documented in this encounter Plan of Treatment Upcoming Encounters Date Type Department Care Team (Late st Contact Info) Description 11/08/2024 10:00 AM EST Office Visit [facility] [address] [place] [address] Felisha Arzola MD [address] [place] [address] documented as of this encounter Visit Diagnoses Not on filedocumented in this encounter Additional Health Concerns Assessment Noted Time PHQ-9 Depression Total Score: 12 023 9:23 AM EDT documented as of this encounter Care Teams Waste Collector Relationship Specialty Start Date End Date Felisha Arzola MD [address] [place] [address] PCP - General Family Medicine 01/06/17 documented as of this encounter
--- OUTSIDE RECORDS SUMMARY | 2024-10-16 09:30 | XMS_ITS | Encounter Summary ---
Author Organization [employer] Address [address] [facility] 7t [place] [address] Care Team Providers Care Senior Javascript Developer Name Role Phone Felisha Arzola MD Primary Care Provider + Reason for Visit * Reason Comments Med Refill Encounter Details Date Type Department Care Team ([facility] st Contact Info) Description 10/17/2023 Refill [facility] [address] [place], [place] [phone] Felisha Arzola MD [address] [place], [place] [phone] Jackelin's thyroiditis Social History Tobacco Use Types Packs/Day Years [...] with others, in a hotel, in a snf, living outside on the street, on a [...] Description 11/08/2024 10:00 AM EST Office Visit [facility] [address] [place] [phone] Felisha Arzola MD [address] [place] [phone] documented as of this encounter Visit Diagnoses Diagnosis Jackelin's thyroiditis Chronic lymphocytic thyroiditis documented in this encounter Additional Health Concerns Assessment Noted Time PHQ-9 Depression Total Score: 12 023 9:23 AM EDT documented as of this encounter Care Teams Senior Javascript Developer Relationship Specialty Start Date End Date Felisha Arzola MD [address] [place] [phone] PCP - General Family Medicine 01/06/17 documented as of this encounter
[2024-10-16 10:57] LABS: MANUAL DIFF FLAG NO
[2024-10-16 11:04] LABS: Basophils Absolute Auto 0.1 X10*3/uL (0.0-0.2); Basophils Percent Auto 1.5 % (0-2); Eosinophils Absolute Auto 0.2 X10*3/uL (0.0-0.4); Eosinophils Percent Auto 2.7 % (0-4); Hematocrit 34.7 % (37.0-47.0); Hemoglobin 10.7 g/dl (12.0-16.0); Imm Gran Abs Auto 0.02 X10*3/uL (0.00-0.03); Imm Gran Pct Auto 0.3 % (0.0-0.4); Lymphocytes Absolute Auto 2.3 X10*3/uL (1.2-4.9); Mean Corpuscular HGB Conc 30.8 g/dl (31.0-35.0); Mean Corpuscular Hemoglobin 24.3 pg (27.0-33.0); Mean Corpuscular Volume 78.7 fL (80.0-98.0); Mean Platelet Volume 11.6 fL (9.4-12.3); Monocytes Absolute Auto 0.4 X10*3/uL (0.1-1.2); Monocytes Percent Auto 5.8 % (2-11); Neutrophils Absolute Auto 4.4 x10*3/uL (2.0-8.3); Neutrophils Percent Auto 58.7 % (45-73); Platelet Count 403 X10*3/uL (160-400); Red Blood Count 4.41 X10*6/uL (4.20-5.50); Red Cell Distribution Width 15.2 % (11.0-16.0); White Blood Count 7.4 X10*3/uL (4.8-10.8)
[2024-10-16 11:25] LABS: Alanine Aminotransferase 13 U/L (0-31); Albumin Level 3.9 g/dL (3.5-5.0); Alkaline Phosphatase 108 U/L (39-117); Aspartate Amino Transferase 19 U/L (5-31); Bilirubin Direct < 0.2 mg/dL (0.0-0.5); Bilirubin Total 0.2 mg/dL (0.0-1.0); Iron 24 mcg/dL (30-160); Percent Iron Saturation 7 % (15-50); Total Iron Binding Capacity 333 mcg/dL (228-428); Total Protein 7.4 g/dL (6.5-8.0); Unsaturated Iron Binding 309 ug/dL
[2024-10-16 11:37] LABS: Ferritin 5 ng/mL (10-122)
[2024-10-16 11:42] LABS: TSH reflex Free T4 2.87 uIU/mL (0.32-4.0)
== END 2024-10-16 09:10 | disposition home or self-care (01) ==
LOC: HO.HHCL 09:09
PROVIDERS: Internal Medicine; Visit Provider Family Medicine
DX: R00.0 Tachycardia, unspecified (principal); D64.9 Anemia, unspecified; E05.00 Thyrotoxicosis with diffuse goiter without thyrotoxic crisis or storm
CPT/HCPCS: 36415; 80076; 82728; 83540; 84443; 85025; 85027

== ENCOUNTER 2024-12-19 10:08 | Emergency (ER) | payer MEDICAID, SELFPAY ==
--- NOTE | ~2024-12-19 | XR_ITS ---
EXAMINATION: XR SHOULDER, LEFT CLINICAL INFORMATION: pain COMPARISON: 09/24/2024. TECHNIQUE: Three views of the left shoulder. FINDINGS: Normal bone mineralization. No fracture, dislocation, or suspicious bone lesion. Normal alignment. The glenohumeral joint is normal. The AC joint is normal. There is a type III acromion. No undersurface spurring. The subacromial space is preserved. Remainder of the soft tissue and bony structures appear normal. XR/XR shoulder LT min 2V IMPRESSION: Normal left shoulder. Electronically signed by: Suraj Lilly MD 12/19/2024 11:33 AM EDT
[2024-12-19 10:19] VITALS: BP 121/74; PULSE 93; RESP 18; TEMP 36.6; O2SAT 100; BMI 34.4
[2024-12-19 11:23] LABS: MANUAL DIFF FLAG NO
[2024-12-19 11:24] LABS: Basophils Absolute Auto 0.1 X10*3/uL (0.0-0.2); Eosinophils Absolute Auto 0.1 X10*3/uL (0.0-0.4); Eosinophils Percent Auto 1.6 % (0-4); Hematocrit 30.7 % (37.0-47.0); Hemoglobin 9.5 g/dl (12.0-16.0); Imm Gran Abs Auto 0.02 X10*3/uL (0.00-0.03); Imm Gran Pct Auto 0.3 % (0.0-0.4); Lymphocytes Absolute Auto 2.1 X10*3/uL (1.2-4.9); Lymphocytes Percent Auto 29.6 % (20-40); Mean Corpuscular HGB Conc 30.9 g/dl (31.0-35.0); Mean Corpuscular Hemoglobin 23.2 pg (27.0-33.0); Mean Corpuscular Volume 74.9 fL (80.0-98.0); Mean Platelet Volume 9.9 fL (9.4-12.3); Monocytes Absolute Auto 0.5 X10*3/uL (0.1-1.2); Monocytes Percent Auto 6.9 % (2-11); Neutrophils Absolute Auto 4.3 x10*3/uL (2.0-8.3); Neutrophils Percent Auto 60.6 % (45-73); Platelet Count 357 X10*3/uL (160-400); Red Cell Distribution Width 15.7 % (11.0-16.0); White Blood Count 7.1 X10*3/uL (4.8-10.8)
--- NOTE | 2024-12-19 11:38 | ED_ITS ---
HPI - General Adult General Chief complaint: Extremity Problem Stated complaint: weakness, sleepy, L shoulder pain Time Seen by Provider: 12/19/24 11:36 Source: patient and asl interpreter (all interactions with this patient were facilitated with an [facility] certified court/medical interpreter) Mode of arrival: ambulatory Limitations: language barrier (all interactions with this patient were facilitated with an [facility] certified [facility]/medical interpreter) History of Present Illness ED Provider: Shawna Blevins PA-C HPI narrative: Patient is a 34 year old assigned female at with a history of eczema and hyperthyroidism presenting to the emergency department today with left shoulder pain and general fatigue. Patient states that she has had left shoulder pain x 1 month and general fatigue throughout the same time. Patient denies any dizziness, lightheadedness, abdominal pain, nausea, vomiting, fever, chills, blurry vision, double vision, loss of vision, chest pain, difficulty breathing, shortness of breath, back pain, night sweats, pain with urination, increased urinary frequency, increased urinary urgency, blood in his urine or stool, syncope or a near syncopal episode, recent trauma or falls, bowel incontinence, bladder incontinence, or any other complaints at this time. Onset (ago): month(s) (1) Location: left (shoulder) Relieving factors: none Exacerbating factors: none Associated symptoms: denies other symptoms Treatments prior to arrival: none Related Data Home Medications ?Medication ?Instructions ?Recorded ?Confirmed ascorbic acid (vitamin C) 500 mg 500 mg PO BID 08/29/22 08/29/22 tablet (Vitamin C) ferrous sulfate 325 mg (65 mg 325 mg PO BID 08/29/22 08/29/22 iron) tablet (FeroSul) lidocaine 5 % topical patch 0 patch topical 08/29/22 08/29/22 (Lidoderm) naproxen 500 mg tablet 0 mg PO 08/29/22 08/29/22 Previous Rx's ?Medication ?Instructions ?Recorded cetirizine 10 mg tablet (Zyrtec) 10 mg PO DAILY #20 tabs 02/02/21 diphenhydramine HCl 25 mg capsule 25 mg PO Q6H PRN itching #14 caps 02/02/21 (Benadryl) triamcinolone acetonide 0.025 % 1 appl topical BID #80 grams 02/02/21 topical ointment azithromycin 250 mg tablet See Rx Instructions PO .COMPLEX #6 09/27/24 (Zithromax Z-Berny) tabs cyclobenzaprine 5 mg tablet 5 mg PO TID PRN shoulder pain 7 12/19/24 days #21 tabs Allergies Allergy/AdvReac Type Severity Reaction Status Date / Time No Known Allergies Allergy Verified 12/19/24 10:22 [No Known Allergies*] Review of Systems 2 Constitutional: Constitutional: Reports no additional constitutional complaints, Denies chills, Reports fatigue, Denies fever(s) and Denies night sweats Eyes: Eyes: Reports no additional eye complaints, Denies blurry vision, Denies change in vision, Denies diplopia, Denies eye discharge, Denies loss of vision and Denies eye pain ENT: Denies dizziness Cardiovascular: Cardiovascular: Reports no additional cardiovascular complaints, Denies chest pain, Denies lightheadedness, Denies Loss of Consciousness and Denies dyspnea Respiratory: Respiratory: Reports no additional respiratory complaints and Denies dyspnea Gastrointestinal: Gastrointestinal: Reports no additional gastrointestinal complaints, Denies abdominal pain, Denies melena, Denies hematochezia, Denies change in bowel habits and Denies change in stool character Genitourinary: Genitourinary: Denies hematuria, Denies urinary frequency, Denies dysuria, Denies urinary incontinence, Denies urinary hesitancy and Denies urinary urgency Musculoskeletal: Musculoskeletal: Reports no additional musculoskeletal complaints, Denies numbness and Denies tingling Comments: left shoulder pain Neurologic: Denies dizziness, Denies loss of vision, Denies numbness and Denies tingling Psychiatric: Psychiatric: Reports no additional psychiatric complaints Endocrine: Endocrine: Reports no additional endocrine complaints and Reports fatigue Hematologic/Lymphatic: Hematologic/Lymphatic: Reports no additional hematologic/lymphatic complaints Allergic/Immunologic: Allergic/Immunologic: Reports no additional allergic/immunologic complaints PMF Past Medical History Attestation statement: The following information was validated with the patient. 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 Physical Exam ED Vital Signs: Vital Signs - 24 hr 12/19/24 10:19 12/19/24 12:37 Temperature 97.8 F 97.8 F Pulse Rate 93 93 Respiratory Rate 18 18 Blood Pressure 121/74 121/74 Pulse Oximetry 100 100 Oxygen Delivery Method Room Air Room Air BMI result Body Mass Index 34.4 Const General: cooperative, no acute distress, alert and awake Nutritional Appearance: well nourished Orientation/consciousness: patient oriented x3 Limitations: no limitations HENMT Head: Yes normal to inspection and Yes atraumatic Ears: hearing grossly normal bilaterally and external ears normal General nose exam: Normal external nose present, no nasal discharge noted and no epistaxis Face and sinus: Yes normal facial exam, No abrasion and No laceration Mouth: Normal oral and palatal mucosa present, no drooling and no muffled voice Eyes General: appearance normal, both eyes and all related structures Periorbital: periorbital findings normal Eyelids: Yes eyelids normal Conjunctivae: conjunctivae normal Pupils: Equal, round and reactive pupils present EOM: EOMs intact bilaterally Neck Neck: Yes normal visual inspection, Yes full ROM and Yes no lymphadenopathy Chest Chest palpation & inspection: normal inspection of the chest Resp Effort & Inspection: normal respiratory effort and able to speak in complete sentences GI Inspection: Yes normal to inspection Neuro General: patient oriented x3, moves all extremities and CN's II-XI intact bilaterally Cranial nerves: Yes Equal, round and reactive pupils present Cognition (Neuro): normal cognition Extrem Other: ROM of the left shoulder restricted secondary to pain. Pain with abduction of the left shoulder. General: Yes normal to inspection and Yes capillary refill normal Psych Appearance: grossly normal Mental Status: mental status grossly normal Affect: normal affect Attitude: cooperative Thought process: Normal thought process present Thought content: Normal thought content present Insight: Good insight present (Psych) Medical Decision Making Medical Decision Making MDM Narrative: Patient is a 34 year old assigned female at with a history of eczema and hyperthyroidism presenting to the emergency department today with left shoulder pain and general fatigue. Patient's physical exam was as noted in the physical exam portion of this note with evidence of left rotator cuff injury / pain. Patient's blood work was unremarkable. Patient's left shoulder x-ray showed no acute process. I explained my physical exam findings as well as all test results to the patient. I answered all questions asked by the patient. I stressed the importance of the patient taking her medication as directed (either prescribed or as the over the counter packaging recommends). I stressed the importance of the patient following up with her primary care provider and orthopedic provider. I stressed the importance of the patient returning to the emergency department immediately if her symptoms were to worsen or if she were to develop any dizziness, shortness of breath, difficulty breathing, chest pain, blurry vision, loss of vision, nausea, vomiting, abdominal pain, fever, chills, back pain, or any other complaints. Patient verbalized agreement and understanding with this treatment plan and discharge. Differential Diagnosis Differential Diagnoses: The differential diagnosis associated with the presentation includes Left rotator cuff injury Fatigue Mild anemia Admission/Observation Consideration of admission/observation: Escalation of care including admission/observation considered Patient would have been admitted to the hospital had her work up had any findings where hospital admission was appropriate and her clinical presentation warranted hospital admission. Lab Data [facility] Lab Attestation statement: I reviewed the patient's lab results. My interpretation of these results are in the [facility] Rationale portion of this note. 12/19/24 11:18 12/19/24 11:18 Labs: Lab Results 12/19/24 Range/Units 11:18 WBC 7.1 (4.8-10.8) X10*3/uL RBC 4.10 L (4.20-5.50) X10*6/uL Hgb 9.5 L (12.0-16.0) g/dl Hct 30.7 L (37.0-47.0) % MCV 74.9 L (80.0-98.0) fL MCH 23.2 L (27.0-33.0) pg MCHC 30.9 L (31.0-35.0) g/dl RDW 15.7 (11.0-16.0) % Plt Count 357 (160-400) X10*3/uL MPV 9.9 (9.4-12.3) fL Immature Gran % (Auto) 0.3 (0.0-0.4) % Neut % (Auto) 60.6 (45-73) % Lymph % (Auto) 29.6 (20-40) % [place] % (Auto) 6.9 (2-11) % Eos % (Auto) 1.6 (0-4) % Baso % (Auto) 1.0 (0-2) % Lymph # (Auto) 2.1 (1.2-4.9) X10*3/uL [place] # (Auto) 0.5 (0.1-1.2) X10*3/uL Eos # (Auto) 0.1 (0.0-0.4) X10*3/uL Baso # (Auto) 0.1 (0.0-0.2) X10*3/uL Abs Immat Gran (auto) 0.02 (0.00-0.03) X10*3/uL Absolute Neuts (auto) 4.3 (2.0-8.3) x10*3/uL Absolute Nucleated RBC 0.000 (0.0-0.012) X10*3/uL Nucleated RBC % (auto) 0.0 (0.0-0.2) /100WBC Sodium 140 (135-145) mmol/L Potassium 3.7 (3.3-5.1) mmol/L Chloride 108 (96-108) mmol/L Carbon Dioxide 26 (22-29) mmol/L Anion Gap 10 L (12-20) BUN 8 L (9-16) mg/dL Creatinine 0.54 (0.5-1.4) mg/dL Estim Creat Clear Calc 188.1 Estimated GFR > 60 Random Glucose 95 (60-115) mg/dL Calcium 8.6 D (8.4-10.2) mg/dL Beta HCG, Quant < 2 mIU/mL Independent Interpretation I performed an independent interpretation of an: Plain X-Ray Interpretation: My interpretation is in agreement with the radiologist's impression of this imaging study. L EXAMINATION: XR SHOULDER, LEFT CLINICAL INFORMATION: pain COMPARISON: 09/24/2024. TECHNIQUE: Three views of the left shoulder. FINDINGS: Normal bone mineralization. No fracture, dislocation, or suspicious bone lesion. Normal alignment. The glenohumeral joint is normal. The AC joint is normal. There is a type III acromion. No undersurface spurring. The subacromial space is preserved. Remainder of the soft tissue and bony structures appear normal. XR/XR shoulder LT min 2V IMPRESSION: Normal left shoulder. Electronically signed by: Suraj Lilly MD 12/19/2024 11:33 AM EDT Dictated By: Suraj Lilly MD Signed By: Electronically signed by Suraj Lilly MD 12/19/24 0137 Radiology Impression Discussion of test interpretation with radiology: I have reviewed the radiologist's reading. Discharge Plan Discharge Clinical Impression: Rotator cuff disorder, Fatigue Patient Disposition: Home, Self-Care Instructions: Rotator Cuff Injury (ED), Fatigue (ED), Rotator Cuff Injury Exercises (DC) Additional Instructions: Your exam today is consistent with a left rotator cuff dysfunction. Your hemoglobin (blood level) was on the lower side of normal at 9.5 but not low enough to warrant transfusion or concern for an emergent process. You must follow up with a primary care provider about your blood work and an orthopedic provider about your left shoulder. Return to the emergency department immediately if your symptoms worsen or if you develop any dizziness, shortness of breath, difficulty breathing, chest pain, blurry vision, loss of vision, nausea, vomiting, abdominal pain, fever, chills, back pain, or any other complaints. Amin examen de hoy es consistente con crow disfunci?n del manguito rotador cookie. Amin hemoglobina (nivel de kimmie) estaba en el lado inferior de lo normal en 9,5, ericka no lo suficientemente bajo moshe para justificar crow transfusi?n o la preocupaci?n por un proceso emergente. Debe hacer un seguimiento con un m?dico de atenci?n primaria sobre amin an?lisis de kimmie y con un traumat?logo sobre amin hombro cookie. Vuelva al servicio de urgencias inmediatamente si chace s?ntomas empeoran o si presenta mareos, falta de aliento, dificultad para respirar, dolor tor?cico, visi?n borrosa, p?rdida de visi?n, n?useas, v?mitos, dolor abdominal, fiebre, escalofr?os, dolor de espalda o cualquier otra molestia. Please see the information below about our Patient Portal. If you are not yet enrolled in the [facility] Patient Portal, you will receive an enrollment email invitation following your visit to any [facility] care setting. You may also self-enroll in the Patient Portal by visiting our website: [email or web address] The following information is required to access the Patient Portal: - Your [facility] Medical Record Number - Your personal home email address (must match what is in your electronic medical record, Registration staff can assist with this) - Name - Date of Capabilities of the Patient Portal: - Message some providers - View upcoming appointments - Access your health summary, medical history, and visit history - View current conditions and allergies - View procedure and lab results - View your medications, including guidelines, side effects, and precautions - Complete pre-appointment questionnaires requested by your provider - Ready summary reports of your office visits and procedures To access the Patient Portal Mobile Ros[employer], follow these directions: - Search [employer] in the [employer] Store or [employer] Store - Download the Rosendo - Search for [facility] - Enter your login/password Portal del paciente Si usted no esta inscrito en el portal de pacientes de [facility], recibira crow invitacion de inscripcion despues de amin visita al [facility] o al [facility] via correo electronico. Tambien puede inscribirse voluntariamente en el portal de pacientes visitando nuestra pagina web: [email or web address] La siguiente informacion sera requerida para acceder al portal: - Amin himanshu de historia medica de [facility] - Amin direccion de correo electronico personal - Nombre - Fecha de nacimiento Capacidades: Las siguientes capacidades estan disponibles en el portal de pacientes: - Enviar mensajes a algunos doctores - Verificar proximas citas - Acceso a amin historial de chpao, registro medico e historial de visitas - Ladan las condiciones actuales y alergias ladan procedimientos y resultados del laboratorio - Ladan chace medicamentos, incluyendo las pautas - Efectos secundarios y precauciones - Completar o llenar formularios / cuestionarios de - Citas solicitadas por amin doctor - Leer los resumenes de reportes medicos de chace visitas y procedimientos Moshe acceder a la aplicacion movil: - [facility] [employer] en la Ros[employer] Store o [employer] Store - Descargue la aplicacion - [facility] - Ingrese amin nombre de usuario / Contrasena Prescriptions: New cyclobenzaprine 5 mg tablet 5 mg PO TID PRN (Reason: shoulder pain) 7 Days Qty: 21 0RF No Action diphenhydramine HCl [Benadryl] 25 mg capsule 25 mg PO Q6H PRN (Reason: itching) Qty: 14 0RF cetirizine [Zyrtec] 10 mg tablet 10 mg PO DAILY Qty: 20 0RF triamcinolone acetonide 0.025 % ointment 1 appl topical BID Qty: 80 0RF azithromycin [Zithromax Z-Berny] 250 mg tablet See Rx Instructions .ROUTE .COMPLEX Qty: 6 0RF Rx Instructions: For 250 mg dose pack: take 500 mg today (day 1), then 250 mg for 4 days (days 2-5) lidocaine [Lidoderm] 5 % adhesive patch,medicated 0 patch topical naproxen 500 mg tablet 0 mg PO ferrous sulfate [FeroSul] 325 mg (65 mg iron) tablet 325 mg PO BID ascorbic acid (vitamin C) [Vitamin C] 500 mg tablet 500 mg PO BID Referrals: [facility] [Provider Group] (Call to establish and follow up with an orthopedic provider for your left shoulder. Llame para establecer y seguir con un proveedor de ortopedia para amin hombro cookie.) Felisha Arzola MD [Primary Care Provider] - Interventions: ED Discharge Assessment Last Done: 12/19/24 12:37 Discharge Date/Time: 12/19/24 12:37 Print Language: Polish
[2024-12-19 11:42] LABS: Anion Gap 10 (12-20); Blood Urea Nitrogen 8 mg/dL (9-16); Calcium 8.6 mg/dL (8.4-10.2); Carbon Dioxide 26 mmol/L (22-29); Chloride 108 mmol/L (96-108); Creatinine Clr Calc Pharmacy 188.1; Estimated Glomerular Filt Rate > 60; Glucose Random 95 mg/dL (60-115); Potassium 3.7 mmol/L (3.3-5.1); Sodium 140 mmol/L (135-145)
[2024-12-19 11:45] LABS: HCG Quantitative < 2 mIU/mL
[2024-12-19 12:37] VITALS: BP 121/74; PULSE 93; RESP 18; TEMP 36.6; O2SAT 100
--- OUTSIDE RECORDS SUMMARY | 2024-12-19 13:40 | XMS_ITS | Encounter Summary ---
Author Organization [employer] Address [address] [facility] 7t [place] [address] Care Team Providers Care [employer] Goods Worker Name Role Phone Felisha Arzola MD Primary Care Provider + Reason for Visit * Reason Comments Med Refill Encounter Details Date Type Department Care Team ([facility] st Contact Info) Description 10/17/2023 Refill [facility] [address] [place], [place] [phone] Felisha Arzola MD [address] [place], [place] [phone] Jackelin's thyroiditis Social History Tobacco Use Types [...] with others, in a hotel, in a correction, living outside on the street, on a [...] as of this encounter Plan of Treatment Not on file documented as of this encounter Visit Diagnoses Diagnosis Jackelin's thyroiditis Chronic lymphocytic thyroiditis documented in this encounter Additional Health Concerns Assessment Noted Time PHQ-9 Depression Total Score: 12 023 9:23 AM EDT documented as of this encounter Care Teams [employer] Worker Relationship Specialty Start Date End Date Felisha Arzola MD [address] [place] [address] PCP - General Family Medicine 01/06/17 documented as of this encounter
--- OUTSIDE RECORDS SUMMARY | 2024-12-19 13:40 | XMS_ITS | Encounter Summary ---
Author Organization [employer] [facility] Address [address] [place] [address] [address] [place] [address] Care Team Providers Care Stacker Straightener Name Role Phone Felisha Arzola MD Primary Care Provider + Encounter Details Date Type Department Care Team (Latest Contact Info) Description 12/04/2020 Abstract C CONVERSIONS Dental, Provider, DDS Social History Tobacco [...] on filedocumented in this encounter Care Teams Stacker Straightener Relationship Specialty Start Date End Date Felisha Arzola MD [address] [place] [phone] PCP - General Family Medicine 01/06/17 documented as of this encounter
--- OUTSIDE RECORDS SUMMARY | 2024-12-19 13:40 | XMS_ITS | Encounter Summary ---
Author Organization [employer] Address [address] [facility] 7t [place] [address] Care Team Providers Care Crisis Specialist Name Role Phone Felisha Arzola MD Primary Care Provider + Encounter Details Date Type Department Care Team ([facility] st Contact Info) Description 11/30/2023 Telephone [facility] [address] [place], [place] [phone] Felisha Arzola MD [address] [place], [place] [phone] Social History Tobacco Use Types Packs/Day Years [...] documented as of this encounter Care Teams Crisis Specialist Relationship Specialty Start Date End Date Felisha Arzola MD [address] [place] [phone] PCP - General Family Medicine 01/06/17 documented as of this encounter
--- OUTSIDE RECORDS SUMMARY | 2024-12-19 13:40 | XMS_ITS | Encounter Summary ---
Author Organization [facility] Address [address] [place] [address] 7t [place] [address] Care Team Providers Care Bulb Brander Name Role Phone Felisha Arzola MD Primary Care Provider + Encounter Details Date Type Department Care Team (Latest Contact Info) Description 05/06/2019 Abstract [facility] CONVERSIONS Dental, Provider, DDS Social History [...] on filedocumented in this encounter Care Teams Bulb Brander Relationship Specialty Start Date End Date Felisha Arzola MD [address] [place] [phone] PCP - General Family Medicine 01/06/17 documented as of this encounter
--- OUTSIDE RECORDS SUMMARY | 2024-12-19 13:40 | XMS_ITS | Encounter Summary ---
Author Organization [employer] Address [address] [place] [address] Care Team Providers Care Electronics Technology Department Chair Name Role Phone Felisha Arzola MD Primary Care Provider + Encounter Details Date Type Department Care Team (Late st Contact Info) Description 12/19/2024 Orders Only GENERIC EXTERNAL DATA DEPARTMENT Provider, Generic External Data Social History Tobacco Use Types Packs/Day Years [...] with others, in a hotel, in a [facility], living outside on the street, on a [...] on file documented as of this encounter Procedures Procedure Name Priority Date/Time Associated Diagnosis Comments CBC WITH AUTO DIFFERENTIAL Routine 12/19/2024 11:18 AM EDT HCG, TOTAL, QN Routine 12/19/2024 11:18 AM EDT BASIC METABOLIC PANEL Routine 12/19/2024 11:18 AM EDT XR SHOULDER 2+ VIEWS LEFT Routine 12/19/2024 10:50 AM EDT documented in this encounter Results * hCG, Total, Quantitative (12/19/2024 11:18 AM EDT) HCG Quantitative <2 mIU/mL [facility] Comment:Weeks post LMP Appro ximate hCG(Last Menstrual Period) Range (mIU/ml)3 - 4 weeks 9 - 1304 - 5 weeks 75 - 2,6005 - 6 weeks 850 - 20,8006 - 7 weeks 4000 - 100,2007 - 12 weeks 11,500 - 289,67390 - 16 weeks 18,300 - 137,08668 - 29 weeks (2nd trimester) 1,400 - 53,49196 - 41 weeks (3rd trimester) 940 - 60,000The Reed B- hCG assay is used for the early detection ofpregnancy; it cannot be used to diagnose any conditionunrelated to . If a B-hCG level is not supportedby the clinical evidence, results should be confirmed by analternative method (qualitative urine hCG, for example). 12/19/2024 11:1 8 AM EDT 12/19/2024 11:22 AM EDT us Generic External Data Provider LAB BLOOD ORDERAB LES Final Result Performing Organization Address City/[facility]/ZIP Co de Phone Number [facility] [address] [place] [address] [phone] * (ABNORMAL) Basic Metabolic Panel (12/19/2024 11:18 AM EDT) Sodium 140 135 - 145 mmol/L [facility] Potassium 3.7 3.3 - 5.1 mmol/L [facility] Chloride 108 96 - 108 mmol/L [facility] Carbon Dioxide 26 22 - 29 mmol/L [facility] Anion Gap 10(L) 12 - 20 [facility] Urea Nitrogen (BUN) 8(L) 9 - 16 mg/dL [facility] Creatinine, Serum 0.54 0.5 - 1.4 mg/dL [facility] Creatinine Clr Calc Pharmacy 188.1 [facility] Comment:Provided height and weight: 175.26 cm,105.6 kg.eGFR (calculated from the MDRD study equation) and eCrCl(calculated from the Cockcroft-Gault equation) are based ondifferent parameters and may not yield comparable results.If eCrCl result is absurd, please check patient'sheight/weight. Estimated Glomerular Filt Rate >60 [facility] Comment:Chronic Kidney Disea se: Estimated GFR < 60 mL/min/1.43u6Zncssx Kidney Disease: Estimated GFR < 15 mL/min/1.73m2 Glucose 95 60 - 115 mg/dL [facility] Calcium 8.6 8.4 - 10.2 mg/dL [facility] 12/19/2024 11:1 8 AM EDT 12/19/2024 11:22 AM EDT us Generic External Data Provider LAB BLOOD ORDERAB LES Final Result Performing Organization Address [facility]/ZIP Co de Phone Number [facility] [address] [place] [address] [phone] * (ABNORMAL) CBC auto differential (12/19/2024 11:18 AM EDT) White Blood Count 7.1 4.8 - 10.8 X10*3/uL [facility] Red Blood Count 4.10(L) 4.20 - 5.50 X10*6/uL [facility] Hemoglobin 9.5(L) 12.0 - 16.0 g/dl [facility] Hematocrit 30.7(L) 37.0 - 47.0 % [facility] Mean Corpuscular Volume 74.9(L) 80.0 - 98.0 fL [facility] Mean Corpuscular Hemoglobin 23.2(L) 27.0 - 33.0 pg [facility] Mean Corpuscular HGB Conc 30.9(L) 31.0 - 35.0 g/dl [facility] Red Cell Distribution Width 15.7 11.0 - 16.0 % [facility] Platelet Count 357 160 - 400 X10*3/uL [facility] Mean Platelet Volume 9.9 9.4 - 12.3 fL [facility] Neutrophils Percent Auto 60.6 45 - 73 % [facility] Imm Gran Pct Auto 0.3 0.0 - 0.4 % [facility] Lymphocytes Percent Auto 29.6 20 - 40 % [facility] Monocytes Percent Auto 6.9 2 - 11 % [facility] Eosinophils Percent Auto 1.6 0 - 4 % [facility] Basophils Percent Auto 1.0 0 - 2 % [facility] NRBC Pct Auto 0.0 0.0 - 0.2 /100WBC [facility] Neutrophils Absolute Auto 4.3 2.0 - 8.3 x10*3/uL [facility] Imm Gran Abs Auto 0.02 0.00 - 0.03 X10*3/uL [facility] Lymphocytes Absolute Auto 2.1 1.2 - 4.9 X10*3/uL [facility] Monocytes Absolute Auto 0.5 0.1 - 1.2 X10*3/uL [facility] Eosinophils Absolute Auto 0.1 0.0 - 0.4 X10*3/uL [facility] Basophils Absolute Auto 0.1 0.0 - 0.2 X10*3/uL [facility] NRBC Abs Auto 0.000 0.0 - 0.012 X10*3/uL [facility] 12/19/2024 11:1 8 AM EDT 12/19/2024 11:22 AM EDT us Generic External Data Provider LAB BLOOD ORDERAB LES Final Result [facility] [address] [place] [address] [phone] * XR Shoulder 2+ Views Left (12/19/2024 10:50 AM EDT) Anatomical Region Laterality Modality Upper Extremities, Shoulder Left Radi ographic Imaging 12/19/2024 10:5 0 AM EDT Narrative 12/19/2024 11:36 AM EDT ? [facility] ?[address] ?[place] [address] ?XRay Report ? Signed ? Patient: Domitila Pina ?MR#: [id number] ?? [id number] ? : 1990 ?Acct:[id number] ? Age/Sex: 34 / F ?ADM Date: 12/19/24 ? Loc: HO.ED ? Attending Dr: ? Ordering Physician: Millicent Dobson DO ?? Date of Service: 12/19/24 ?? Procedure(s): XR shoulder LT min 2V ?? Accession Number(s): [id number] ? cc: Felisha Arzola MD; Millicent Dobson DO ? EXAMINATION: ?? XR SHOULDER, LEFT ? CLINICAL INFORMATION: ?? pain ? COMPARISON: ?? 09/24/2024. ? TECHNIQUE: ?? Three views of the left shoulder. ? FINDINGS: ?? Normal bone mineralization. No fracture, dislocation, or suspicious ?? bone lesion. Normal alignment. ?? The glenohumeral joint is normal. ?? The AC joint is normal. ?? There is a type III acromion. No undersurface spurring. ?? The subacromial space is preserved. ? Remainder of the soft tissue and bony structures appear normal. ? XR/XR shoulder LT min 2V ?? IMPRESSION: ?? Normal left shoulder. ? Electronically signed by: ??Suraj Lilly MD ??12/19/2024 11:33 AM EDT RP ? Dictated By: ?Suraj Lilly MD ? Signed By: ?<Electronically signed by Suraj Lilly MD in OV> ?12/19/24 1133 ? DD/ 1050 ? TD/TT: 12/19/24 1120 ? Tipple Greaser: ? Procedure Note Donotmarvelinterpreter, Image - 12/19/[address] [address] XRay Report Signed Patient: Domitila Pina MMR#: [id number] : 1990Acct:[id number] Age/Sex: 34 / FADM Date: 12/19/24 Loc: HO.ED Attending Dr: Ordering Physician: Millicent Dobson DO Date of Service: 12/19/24 Procedure(s): XR shoulder LT min 2V Accession Number(s): [id number] cc: Felisha Arzola MD; Millicent Dobson DO EXAMINATION: XR SHOULDER, LEFT CLINICAL INFORMATION: pain COMPARISON: 09/24/2024. TECHNIQUE: Three views of the left shoulder. FINDINGS: Normal bone mineralization. No fracture, dislocation, or suspicious bone lesion. Normal alignment. The glenohumeral joint is normal. The AC joint is normal. There is a type III acromion. No undersurface spurring. The subacromial space is preserved. Remainder of the soft tissue and bony structures appear normal. XR/XR shoulder LT min 2V IMPRESSION: Normal left shoulder. Electronically signed by: Suraj Lilly MD 12/19/2024 11:33 AM EDT Dictated By: Suraj Lilly MD Signed By: <Electronically signed by Suraj Lilly MD in OV> 12/19/24 1133 DD/ 1050 TD/TT: 12/19/24 1120 Tipple Greaser: [facility] External Provider IMG XR PROCEDURES Final Result documented in this encounter Visit Diagnoses Not on filedocumented in this encounter Additional Health Concerns Assessment Noted Time PHQ-9 Depression Total Score: 12 023 9:23 AM EDT documented as of this encounter Care Teams Electronics Technology Department Chair Relationship Specialty Start Date End Date Felisha Arzola MD [address] [place] [phone] PCP - General Family Medicine 01/06/17 documented as of this encounter
--- OUTSIDE RECORDS SUMMARY | 2024-12-19 13:40 | XMS_ITS | Encounter Summary ---
Author Organization [facility] Address [address] [place] [address] Care Team Providers Care Rubber Mill Operator Name Role Phone Felisha Arzola MD Primary Care Provider + Reason for Visit * Reason Onset Date Comments Results 06/29/2023 Encounter Details Date Type Department Care Team ([facility] st Contact Info) Description 06/29/2023 Telephone [facility] [address] [place], [place] [phone] Felisha Arzola MD [address] [place], [place] [phone] Results Social History Tobacco Use Types Packs/Day [...] with others, in a hotel, in a intermediate, living outside on the street, on a [...] patient and gave her a letter regarding [place] classes. Please refer to letter. No further action needed. * Telephone Encounter - Comfort Smith - 06/29/2023 9:30 AM EDT Tc from pt requesting a call back in regards results on XRAY done at [facility] 06/22/2023 documented in this encounter Plan of Treatment Not on file documented as of this encounter Visit Diagnoses Not on filedocumented in this encounter Additional Health Concerns Assessment Noted Time PHQ-9 Depression Total Score: 12 023 9:23 AM EDT documented as of this encounter Care Teams Rubber Mill Operator Relationship Specialty Start Date End Date Felisha Arzola MD [address] [place] [phone] PCP - General Family Medicine 01/06/17 documented as of this encounter
--- OUTSIDE RECORDS SUMMARY | 2024-12-19 13:40 | XMS_ITS | Clinical Summary ---
Author Organization [employer] Address [address] [place] [address] 7[address] [place] [address] Care Team Providers Care Maintenance Supervisor Electrical Name Role Phone Felisha Arzola MD Primary Care Provider + Allergies No known active allergies Medications carbamide peroxide (Debrox) 6.5 % otic solution 5 drops every 12 (twelve) hours. instill 5 drop by otic route 2 times every day into affected ear(s) 2 Active cetirizine (ZyrTEC) 10 MG tablet Take 1 tablet by mouth 1 (one) time each day. 1 Active Blood Pressure kit A ctive traZODone (Desyrel) 50 MG tablet Take 1 tablet by mouth at bed time. 9 Active Blood Pressure Monitoring (Omron 3 Series BP Monitor) device USE TO CHECK BLOOD PRESSURE DAILY 2 Active ketoconazole (NIZOral) 2 % shampooIndications :Seborrheic dermatitis APPLY TO THE AFFECTED AREA(S) TOPICALLY TWICE A WEEK 120 mL 1 3 Active lidocaine (Lidoderm) 5 % patch APPLY 1 PATCH TOPICALLY TO SKIN, LEAVE ON FOR 12 HOURS AND OFF FOR 12 HOURS DIRECTED 10 patch 5 4 Active metoprolol succinate XL (Toprol XL) 50 MG 24 hr tabletIndications: Secondary hypertension Take 1 tablet (50 mg) by mouth in the morning. Do not crush or chew. 90 tablet 3 4 Active norethindrone (Micronor) 0.35 MG tabletIndications: Encounter for surveillance of other contraceptive Take 1 tablet (0.35 mg) by mouth in the morning. 90 day supply please 84 tablet 3 4 Active methIMAzole (Tapazole) 10 MG tablet Take 20 mg by mouth 2 times daily. 4 Active hydrOXYzine pamoate (Vistaril) 25 MG capsule Take 1 capsule (25 mg) by mouth every 6 (six) hours if needed for anxiety. 90 capsule 4 Active baclofen (Lioresal) 10 MG tablet Take 1 tablet (10 mg) by mouth if needed in the morning, at noon, and at bedtime for muscle spasms. 60 tablet 1 5 Active Diclofenac Sodium 1 % gel Apply 2 g topically if needed in the morning, at noon, in the evening, and at bedtime (pain). 150 g 3 5 Active betamethasone valerate (Valisone) 0.1 % cream Apply topically if needed in the morning and at bedtime (dryness). 45 g 2 5 Active naproxen (Naprosyn) 500 MG tablet Take 1 tablet (500 mg) by mouth if needed in the morning and at bedtime for mild pain. 40 tablet 1 5 Active ferrous sulfate (Fe Tabs) 325 (65 Fe) MG EC tablet Take 1 tablet (325 mg) by mouth Once per day. Do not crush, chew, or split. 90 tablet 3 5 10/17/19 26 Active Active Problems Problem Noted Date Diagnosed Date Fractured dental mormon with loss of materi al 03/29/2024 Dental [...] instability. I told her to hold on singaporean classes for at least a month I until these other issues are taken care of, specially housing, moving etc. 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 and she's able to go to school 12-14 hrs per week, she says she enjoys singaporean classes FU w/ me 8 wk Contusion [...] Encounters Date Type Department Care Team Description 12/19/2024 Orders Only GENERIC EXTERNAL DATA DEPARTMENT Provider, Generic External Data 11/22/2024 Population Health Risk Score [facility] ([facility] Department [address] [phone] Provider, Population Health Generic 11/08/2024 Telephone [facility] [address] [place] [address] Felisha Arzola MD No Show 11/05/2024 Telephone [facility] [address] [place] [address] Felisha Arzola MD Chart prep 10/25/2024 Patient Outreach [facility] [address] [place] [phone] Felisha Arzola MD Pre-visit Planning ((Unable to reach for PVP screening and or LVM)) 10/25/2024 Telephone [facility] [address] [place] [address] Felisha Arzola MD Results 10/17/2024 Refill [facility] [address] [place] [address] Sarah Antunez RN 10/16/2024 Outside Procedure [facility] [address] [place] [address] Grady, Rachel, OD High myopia, bilateral (Primary Dx); Regular astigmatism of both eyes 09/23/2024 10:20 AM EST Office Visit [facility] [address], [place] [phone] Juliana Solis DO Acute pain of left shoulder (Primary Dx); Anemia, unspecified type from Last 3 Months Immunizations Name Administration [...] with others, in a hotel, in a half-way, living outside on the street, on a [...] 05/17/2024 10:01 AM EDT Plan of Treatment Health Maintenance Due Date Last Done Comments Alcohol/Substance Use Screening 2001 Family Planning (PISQ) 2004 Hepatitis C Screening 12/14/2007 Hepatitis B Vaccines (1 of 3 - 19+ 3-dose series) 2008 Depression Monitoring 11/15/2023 05/17/2023, 023 COVID-19 Vaccine ( season) 2024 10/03/2022, 05/19/2021, 04/28/2021 Influenza Vaccine (#1) 2024 Depression Screening 05/17/2024 05/17/2023, 05/17/20 SDOH Screening 05/17/2024 05/17/2023 Dental Oral Exam 09/30/2024 03/29/2024, , 12/04/2020, Additional history exists Dental X-Ray: Bitewings 11/03/2024 11/02/19 24, 03/31/2022, 12/04/2020, Additional history exists Dental Prophylaxis 01/16/2025 07/18/2024, 0 11/02/2023, 03/31/2022, [...] Procedure Name Priority Date/Time Associated Diagnosis Comments HCG, TOTAL, QN Routine 12/19/2024 11:18 AM EDT BASIC METABOLIC PANEL Routine 12/19/2024 11:18 AM EDT CBC WITH AUTO DIFFERENTIAL Routine 12/19/2024 11:18 AM EDT XR SHOULDER 2+ VIEWS LEFT Routine 12/19/2024 10:50 AM EDT CBC Routine 10/16/2024 9:13 AM EST Anemia, unspecified type IRON AND TOTAL IRON BINDING CAPACITY Routine 10/16/2024 9:13 AM EST Anemia, unspecified type TSH W/REFLEX TO FT4 Routine 10/16/2024 9 :13 AM EST Tachycardia Goiter with hyperthyroidism HEPATIC FUNCTION PANEL Routine 10/16/2024 9:13 AM EST Tachycardia CBC WITH AUTO DIFFERENTIAL Routine 10/16/2024 9:13 AM EST Tachycardia FERRITIN Routine 10/16/2024 9:11 AM EST Anemia, unspecified type XR SHOULDER 2+ VIEWS LEFT Routine 09/24/2024 9:02 AM EST Acute pain of left shoulder PROPHYLAXIS - ADULT Routine 07/18/2024 1 0:00 AM EST PERIODIC ORAL EVALUATION - ESTABLISHED PATIENT Routine 03/29/2024 1:00 PM EDT BITEWINGS - 4 RADIOGRAPHIC IMAGES Routine 11/02/2023 1:00 PM EST Dental calculus Missing teeth, acquired LIPID PANEL WITH REFLEX TO DIRECT LDL Routine 05/18/2023 8:54 AM EDT Class 2 obesity due to excess calories without serious comorbidity with body mass index (BMI) of 35.0 to 35.9 in adult INTRAORAL - COMPLETE SERIES OF RADIOGRAPHIC IMAGES Routine 03/31/2022 12:00 AM EDT THINPREP IMAGING PAP AND HPV MRNA E6/E7 WITH REFLEX TO HPV 16,18/45 Routine 06/30/2021 10:53 AM EDT ALANNA HISTORICAL HIV AB/AG Routine 04/01/2021 1:20 PM EDT from Last 3 Months or Most Recently Relevant to Health Maintenance Results * (ABNORMAL) CBC auto differential (12/19/2024 11:18 AM EDT) Only the most recent of2 resultswithin the time period is included. White Blood Count 7.1 4.8 - 10.8 X10*3/uL [facility] Red Blood Count 4.10(L) 4.20 - 5.50 X10*6/uL [facility] Hemoglobin 9.5(L) 12.0 - 16.0 g/dl [facility] Hematocrit 30.7(L) 37.0 - 47.0 % [facility] Mean Corpuscular Volume 74.9(L) 80.0 - 98.0 fL [facility] Mean Corpuscular Hemoglobin 23.2(L) 27.0 - 33.0 pg [facility] Mean Corpuscular HGB Conc 30.9(L) 31.0 - 35.0 g/dl [facility] Red Cell Distribution Width 15.7 11.0 - 16.0 % [facility] Platelet Count 357 160 - 400 X10*3/uL [facility] Mean Platelet Volume 9.9 9.4 - 12.3 fL [facility] Neutrophils Percent Auto 60.6 45 - 73 % [facility] Imm Gran Pct Auto 0.3 0.0 - 0.4 % [facility] Lymphocytes Percent Auto 29.6 20 - 40 % [facility] Monocytes Percent Auto 6.9 2 - 11 % [facility] Eosinophils Percent Auto 1.6 0 - 4 % [facility] Basophils Percent Auto 1.0 0 - 2 % [facility] NRBC Pct Auto 0.0 0.0 - 0.2 /100WBC [facility] Neutrophils Absolute Auto 4.3 2.0 - 8.3 x10*3/uL [facility] Imm Gran Abs Auto 0.02 0.00 - 0.03 X10*3/uL [facility] Lymphocytes Absolute Auto 2.1 1.2 - 4.9 X10*3/uL [facility] Monocytes Absolute Auto 0.5 0.1 - 1.2 X10*3/uL [facility] Eosinophils Absolute Auto 0.1 0.0 - 0.4 X10*3/uL [facility] Basophils Absolute Auto 0.1 0.0 - 0.2 X10*3/uL [facility] NRBC Abs Auto 0.000 0.0 - 0.012 X10*3/uL [facility] 12/19/2024 11:1 8 AM EDT 12/19/2024 11:22 AM EDT us Generic External Data Provider LAB BLOOD ORDERAB LES Final Result [facility] [address] [place] [phone] * hCG, Total, Quantitative (12/19/2024 11:18 AM EDT) HCG Quantitative <2 mIU/mL [facility] Comment:Weeks post LMP Appro ximate hCG(Last Menstrual Period) Range (mIU/ml)3 - 4 weeks 9 - 1304 - 5 weeks 75 - 2,6005 - 6 weeks 850 - 20,8006 - 7 weeks 4000 - 100,2007 - 12 weeks 11,500 - 289,86571 - 16 weeks 18,300 - 137,50965 - 29 weeks (2nd trimester) 1,400 - 53,61086 - 41 weeks (3rd trimester) 940 - [...] ORDERAB LES Final Result Performing Organization Address City/[facility]/ZIP Co de Phone Number [facility] [address] [place] [phone] * (ABNORMAL) Basic Metabolic Panel (12/19/2024 11:18 AM EDT) Sodium 140 135 - 145 mmol/L [facility] Potassium 3.7 3.3 - 5.1 mmol/L [facility] Chloride 108 96 - 108 mmol/L [facility] Carbon Dioxide 26 22 - 29 mmol/L [facility] Anion Gap 10(L) 12 - 20 [facility] Urea Nitrogen (BUN) 8(L) 9 - 16 mg/dL [facility] Creatinine, Serum 0.54 0.5 - 1.4 mg/dL [facility] Creatinine Clr Calc Pharmacy 188.1 [facility] Comment:Provided height and weight: 175.26 cm,105.6 kg.eGFR (calculated from the MDRD study equation) and eCrCl(calculated from the Cockcroft-Gault equation) are based ondifferent parameters and may not yield comparable results.If eCrCl result is absurd, please check patient'sheight/weight. Estimated Glomerular Filt Rate >60 [facility] Comment:Chronic Kidney Disea se: Estimated GFR < 60 mL/min/1.77j0Pjtrvb Kidney Disease: Estimated GFR < 15 mL/min/1.73m2 Glucose 95 60 - 115 mg/dL [facility] Calcium 8.6 8.4 - 10.2 mg/dL [facility] 12/19/2024 11:1 8 AM EDT 12/19/2024 11:22 AM EDT us Generic External Data Provider LAB BLOOD ORDERAB LES Final Result [facility] [address] [place] [address] [phone] * XR Shoulder 2+ Views Left (12/19/2024 10:50 AM EDT) Only the most recent of2 resultswithin the time period is included. Anatomical Region Laterality Modality Upper Extremities, Shoulder Left Radi ographic Imaging 12/19/2024 10:5 0 AM EDT Narrative 12/19/2024 11:36 AM EDT ? [facility] ?[address] ?[place] [address] ?XRay Report ? Signed ? Patient: Domitila Pina ?MR#: [id number] ?? [id number] ? : 1990 ?Acct:[id number] ? Age/Sex: 34 / F ?ADM Date: 12/19/24 ? Loc: HO.ED ? Attending Dr: ? Ordering Physician: Millicent Dobson DO ?? Date of Service: 12/19/24 ?? Procedure(s): XR shoulder LT min 2V ?? Accession Number(s): [id number] ? cc: Felisha Arzola MD; Millicent Dobson [...] DD/ 1050 ? TD/TT: 12/19/24 1120 ? Camp Dishwasher: ? Procedure Note Donotuseinterpreter, Image - 12/19/[address] [address] XRay Report Signed Patient: Domitila Pina MMR#: [id number] : 1990Acct:[id number] Age/Sex: 34 / FADM Date: 12/19/24 Loc: HO.ED Attending Dr: Ordering Physician: Millicent Dobson DO Date of Service: 12/19/24 Procedure(s): XR shoulder LT min 2V Accession Number(s): [id number] cc: Felisha Arzola MD; Millicent Dobson DO [...] 12/19/24 1133 DD/ 1050 TD/TT: 12/19/24 1120 Camp Dishwasher: us [facility] External Provider IMG XR PROCEDURES Final Result * TSH W/Reflex to FT4 (10/16/2024 9:13 AM EST) TSH reflex Free T4 2.87 0.32 - 4.0 uIU/mL [facility] Blood Venous blood specimen / Unknown 10/16/2024 9:13 AM EST 10/16/2024 10:51 AM EST us Felisha Arzola MD LAB BLOOD ORDERABLES Fin al Result Performing Organization Address [facility] Co de Phone Number [facility] [address] [place] [phone] * (ABNORMAL) Iron And Total Iron Binding Capacity (10/16/2024 9:13 AM EST) [facility] Iron 24(L) 30 - 160 mcg/dL [facility] Total Iron Binding Capacity 333 228 - 428 mcg/dL [facility] Percent Iron Saturation 7(L) 15 - 50 % [facility] Unsaturated Iron Binding 309 ug/dL [facility] Blood Venous blood specimen / Unknown 10/16/2024 9:13 AM EST 10/16/2024 10:51 AM EST us Juliana Solis DO LAB BLOOD ORDERABLES Final R esult Performing Organization Address [facility] Co de Phone Number [facility] [address] [place] [phone] * (ABNORMAL) CBC (10/16/2024 9:13 AM EST) [facility] White Blood Count 7.4 4.8 - 10.8 X10*3/uL [facility] Red Blood Count 4.41 4.20 - 5.50 X10*6/uL [facility] Hemoglobin 10.7(L) 12.0 - 16.0 g/dl [facility] Hematocrit 34.7(L) 37.0 - 47.0 % [facility] Mean Corpuscular Volume 78.7(L) 80.0 - 98.0 fL [facility] Mean Corpuscular Hemoglobin 24.3(L) 27.0 - 33.0 pg [facility] Mean Corpuscular HGB Conc 30.8(L) 31.0 - 35.0 g/dl [facility] Red Cell Distribution Width 15.2 11.0 - 16.0 % [facility] Platelet Count 403(H) 160 - 400 X10*3/uL [facility] Mean Platelet Volume 11.6 9.4 - 12.3 fL [facility] NRBC Pct Auto 0.0 0.0 - 0.2 /100WBC [facility] NRBC Abs Auto 0.000 0.0 - 0.012 X10*3/uL [facility] Blood Venous blood specimen / Unknown 10/16/2024 9:13 AM EST 10/16/2024 10:51 AM EST us Juliana Solis DO LAB BLOOD ORDERABLES Final R esult Performing Organization Address [facility] Co de Phone Number [facility] [address] [place] [phone] * Hepatic Function Panel (10/16/2024 9:13 AM EST) Pathologist [facility] Bilirubin, Total 0.2 0.0 - 1.0 mg/dL [facility] Bilirubin, Direct <0.2 0.0 - 0.5 mg/dL [facility] Aspartate Amino Transferase 19 5 - 31 U/L [facility] Alanine Aminotransferase 13 0 - 31 U/L [facility] Total Protein 7.4 6.5 - 8.0 g/dL [facility] Albumin Level 3.9 3.5 - 5.0 g/dL [facility] Alkaline Phosphatase 108 39 - 117 U/L [facility] Blood Venous blood specimen / Unknown 10/16/2024 9:13 AM EST 10/16/2024 10:51 AM EST us Felisha Arzola MD LAB BLOOD ORDERABLES Fin al Result Performing Organization Address [facility] Phone Number [facility] [address] [place] [phone] * (ABNORMAL) Ferritin (10/16/2024 9:11 AM EST) Ferritin 5(L) 10 - 122 ng/mL [facility] Blood Venous blood specimen / Unknown 10/16/2024 9:11 AM EST 10/16/2024 10:51 AM EST us Juliana Solis DO LAB BLOOD ORDERABLES Final R esult Performing Organization Address [facility] Co de Phone Number [facility] [address] [place] [phone] * Lipid Panel with Reflex to Direct LDL (05/18/2023 8:54 AM EDT) Triglycerides 89 <150 mg/dL [facility] Comment:Desirable Triglyceri de: less than 150 mg/dLBorderline High Triglyceride 150-199 mg/dLHigh Triglyceride: 200-499 mg/dLVery High Triglyceride: greater than or equal to 5OO mg/dL Cholesterol 145 <200 mg/dL [facility] Comment:Desirable Cholestero l: less than 200 mg/dLBorderline High Cholesterol: 200-239 mg/dLHigh Cholesterol: greater than 239 mg/dL LDL Cholesterol Calculated 87 <100 mg/dL [facility] Comment:Desirable LDL: less than 100 mg/dLNear Optimal/Above Optimal LDL: 110- 129 mg/dLBorderline High LDL: 130-159 mg/dLHigh LDL: 160-189 mg/dLVery High LDL: greater than or equal to 190 mg/dL HDL Cholesterol 41 >40 mg/dL [facility] Comment:Desirable HDL: great er than 40 mg/dL Note: This HDL assay may give artificially low results in patients with liver disease. 05/18/2023 8:54 AM EDT 05/18/2023 11:05 AM EDT us Felisha Arzola MD LAB BLOOD ORDERABLES Fin al Result Performing Organization Address City/[facility]/ZIP Co de Phone Number [facility] [address] [place] [phone] * THINPREP TIS PAP AND HPV mRNA E6/E7 REFLEX HPV 16,18/45 (06/30/2021 10:53 AM EDT) Clinical Information: None given [facility] COMMENT SEE COMMENT [facility] [...] has been evaluated with computer assisted technology. [facility] Research Test Engine Operator: SEE COMMENT [facility] Comment: WAC, CT(ASCP) CT screening location: [address] ??[phone] HPV nRNA E6/E7 Not Detected Not Detected [facility] Comment: Methodology: Staff Psychologist-Mediated Amplification This assay detects E6/E7 viral messenger RNA (mRNA) from 14 high-risk HPV types (16,18,31,33,35,39,45,51,52,56,58,59,66,68). ? The analytical performance characteristics of this assay have been determined by [facility]. The modifications have not been cleared or approved by the FDA. This assay has been validated pursuant to the CLIA regulations and is used for clinical purposes. ?? For additional information, please refer to http://education.Tippr.[place] CK1/faq/PEL153o1 (This link if provided for information/ educational purposes only.) Interpretation/Re sult: Negative for intraepithelial lesion or malignancy. [facility] LMP: 06/19/2021 [facility] Prev. BX: NONE GIVEN [facility] Prev. PAP: 4Y ? ABNORMAL [facility] SOURCE: None given [facility] Statement Of Adequacy: SEE COMMENT [facility] Comment: Satisfactory for evaluation. Endocervical/transformation zone component present. 06/30/2021 10:5 3 AM EDT Jessica Fields CNM LAB PATHOLOGY ORDERABLES Final Result [facility] [address] * HIV AB/AG (04/01/2021 1:20 PM EDT) [facility] HIV AB/AG Nonreactive Nonreactive [facility] Comment: HIV-1 p24 Ag and/or [...] detection of this assay. ?? [employer] HIV Ag/Ab Combo assay result and supplemental assay results should be interpreted in conjunction with the patient's clinical presentation, history and other laboratory results. ??If the results are inconsistent with clinical evidence, additional testing is suggested to confirm the result. 04/01/2021 1:20 PM EDT us Felisha Arzola MD HISTORICAL/NON ORDERABLE LABS Final Result Performing Organization Address [facility] de Phone Number [facility] [address] from Last 3 Months or Most Recently Relevant to Health Maintenance Insurance [place] [address] [place] [address] * Guarantor: Domitila Pina Account Type Relation to Patient Date of Phone Billing Address Personal/Family Self [address] Care Teams Maintenance Supervisor Electrical Relationship Specialty Start Date End Date Felisha Arzola MD [address] [place] [phone] PCP - General Family Medicine 01/06/17
--- OUTSIDE RECORDS SUMMARY | 2024-12-19 13:40 | XMS_ITS | Encounter Summary ---
Author Organization [employer] [facility] Address [address] [place] [address] [address] [place] [address] Care Team Providers Care Cement Car Dumper Name Role Phone Felisha Arzola MD Primary Care Provider + Encounter Details Date Type Department Care Team (Latest Contact Info) Description 03/31/2022 Abstract C CONVERSIONS Dental, Provider, DDS Social [...] on filedocumented in this encounter Care Teams Cement Car Dumper Relationship Specialty Start Date End Date Felisha Arzola MD [address] [place] [phone] PCP - General Family Medicine 01/06/17 documented as of this encounter
--- OUTSIDE RECORDS SUMMARY | 2024-12-19 13:40 | XMS_ITS | Encounter Summary ---
Author Organization [facility] Address [address] [facility] 7t [place] [address] Care Team Providers Care Boring Inspector Name Role Phone Felisha Arzola MD Primary Care Provider + Encounter Details Date Type Department Care Team (Late st Contact Info) Description 08/18/2022 Orders Only [facility] [address] [place], [place] [phone] Gudelia Robb MD [address] [place], [place] [phone] Stress fracture of metatarsal bone of right [...] Primary documented in this encounter Care Teams Boring Inspector Relationship Specialty Start Date End Date Felisha Arzola MD [address] [place], [place] [phone] PCP - General Family Medicine 01/06/17 documented as of this encounter
--- OUTSIDE RECORDS SUMMARY | 2024-12-19 13:40 | XMS_ITS | Encounter Summary ---
Author Organization [employer] Address [address] [facility] 7[address] [place] [address] Care Team Providers Care Director Transportation Name Role Phone Felisha Arozla MD Primary Care Provider + Reason for Visit * Reason Onset Date Comments Letter for School/Work 08/18/2022 Encounter Details Date Type Department Care Team ([facility] st Contact Info) Description 08/18/2022 Telephone [facility] [address] [place], [place] [phone] Felisha Arzola MD [address] [place], [place] [phone] Letter for School/Work Social History Tobacco Use [...] her fracture foot Please contact pt at [phone] * Telephone Encounter - Uma Pham RN [...] Left SMS notification to return call at [phone]. * Telephone Encounter - Katty Aguilar - [...] results . States got xrays done at [facility] . documented in this encounter Plan of Treatment Not on file documented as of this encounter Visit Diagnoses Not on filedocumented in this encounter Care Teams Director Transportation Relationship Specialty Start Date End Date Felisha Arzola MD [address] [place] [phone] PCP - General Family Medicine 01/06/17 documented as of this encounter
--- OUTSIDE RECORDS SUMMARY | 2024-12-19 13:40 | XMS_ITS | Encounter Summary ---
Author Organization [employer] [facility] Address [address] [place] [address] 7t [place] [address] Care Team Providers Care Radiological Technologist Name Role Phone Felisha Arzola MD Primary Care Provider + Encounter Details Date Type Department Care Team (Latest Contact Info) Description 11/05/2018 Abstract [facility] CONVERSIONS Dental, Provider, DDS Social History [...] on filedocumented in this encounter Care Teams Radiological Technologist Relationship Specialty Start Date End Date Felisha Arzola MD [address] [place] [id number] PCP - General Family Medicine 01/06/17 documented as of this encounter
== END 2024-12-19 12:37 | disposition home or self-care (01) ==
PROVIDERS: Emergency Medicine; Emergency Provider Emergency Medicine; PCP Internal Medicine
DX: M75.102 Unspecified rotator cuff tear or rupture of left shoulder, not specified as traumatic (principal); R53.83 Other fatigue; M25.512 Pain in left shoulder; Z79.899 Other long term (current) drug therapy
CPT/HCPCS: 36415; 73030; 80048; 84702; 85025; 99282; 99283

== ENCOUNTER → 2024-12-19 10:50 | Outpatient (BNV) | payer MEDICAID, SELFPAY | PROVIDERS: Emergency Provider Emergency Medicine; PCP Internal Medicine; Visit Provider Radiology Diagnostic Radiology | DX: M25.512 Pain in left shoulder (principal) | CPT/HCPCS: 73030 ==

== ENCOUNTER 2025-02-12 14:25 | Outpatient (AMB) | payer MEDICAID, SELFPAY ==
--- OUTSIDE RECORDS SUMMARY | 2025-02-12 14:27 | XMS_ITS | Encounter Summary ---
Author Organization [employer] [facility] Address [address] [place] [address] [address] [address] Care Team Providers Care Professional Golf Tournament Player Name Role Phone Felisha Arzola MD Primary Care Provider + Encounter Details Date Type Department Care Team (Latest Contact Info) Description 12/04/2020 Abstract [facility] CONVERSIONS Dental, Provider, DDS Social History [...] Care Team (Late st Contact Info) Description 02/25/2025 3:00 PM EDT Office Visit [facility] MEDICINE [address] [place] [address] Felisha Arzola MD [address] [place] [address] 05/05/2025 11:00 AM EDT Office Visit [facility] OPTOMETRY [address] [place] [address] Rachel Rasmussen, YOKO [address] [place] [address] documented as of this encounter Visit Diagnoses Not on filedocumented in this encounter Care Teams Professional Golf Tournament Player Relationship Specialty Start Date End Date Felisha Arzola MD [address] [place] [address] PCP - General Family Medicine 01/06/17 documented as of this encounter
[2025-02-12 14:43] VITALS: BMI 34.3
--- NOTE | 2025-02-12 14:43 | MHC.OFFVIS ---
Vital Signs 02/12/25 14:43 Height 5 ft 9 in Weight 232 lb BMI 34.3 Intake Visit Reasons: ER- LT shoulder pain Intake Note: Domitila is a 34 year old female who presents as a new patient with complaints of left shoulder pain. Patient was recently seen at [facility] [facility] [place] due to her pain, x-rays were taken and she was referred to orthopedics. Today patient reports she continues to have swelling in her upper arm, no injury or trauma she can recall. At times she has numbness and tingling in her hand in the mornings. No EMG done. Family Support Coordinator Name: Yojana CHILEL/SARA Allergies No Known Allergies [No Known Allergies*] Allergy (Verified 02/12/25 14:46) Medication List - Last Reconciled 02/12/25 by SHARDA Chaudhari-Angela ascorbic acid (vitamin C) (Vitamin C) 500 mg PO BID cetirizine (Zyrtec) 10 mg PO DAILY cyclobenzaprine 5 mg PO TID PRN 7 days diphenhydramine HCl (Benadryl) 25 mg PO Q6H PRN ferrous sulfate (FeroSul) 325 mg PO BID lidocaine 5% (Lidoderm) 0 patches topical naproxen 0 mg PO triamcinolone acetonide 0.025% 1 appl topical BID HPI HPI ER- LT shoulder pain: Details: 34-year-old female presents to the office today for pain in the left shoulder. She denies injury but states she was seen in the emergency department where x-rays were obtained and she was referred to our office for ortho eval. She states she has pain with overhead reaching and lifting. She also has discomfort with sleeping at night. 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 She has tenderness over the proximal biceps and a positive Dillon's. 5/5 rotator cuff strength. Neurovascularly intact. Results Reviewed Results Reviewed: X-rays of the left shoulder obtained in the emergency department are negative for any acute or abnormalities. Assessment & Plan Assessment & Plan (1) Left shoulder tendonitis: Code(s): M77.8 - Other enthesopathies, not elsewhere classified Category: Medical (2) Biceps tendonitis on left: Code(s): M75.22 - Bicipital tendinitis, left shoulder Category: Medical Plan We discussed options today which include physical therapy to work on range of motion, rotator cuff periscapular stabilization. I expect her to increase activities as tolerated if there is any questions or concerns going forward as she has increased pain she can contact our office otherwise follow up as needed Orders: Orders PT Evaluation and Treatment Today M75.22 - Bicipital tendinitis, left shoulder, M77.8 - Other enthesopathies, not elsewhere classified Coding Level of Care Code Est Pt Level 3 (68209) Complex EM visit Add On G2211 Diagnoses Left shoulder tendonitis M77.8 Biceps tendonitis on left M75.22
== END 2025-02-12 15:59 | disposition home or self-care (01) ==
LOC: HO.HOS 14:25
PROVIDERS: Visit Provider Physician Assistant
DX: M77.8 Other enthesopathies, not elsewhere classified (principal); M75.22 Bicipital tendinitis, left shoulder
CPT/HCPCS: 99213

== ENCOUNTER → 2025-02-12 14:25 | Outpatient (BNVA) | payer MEDICAID, SELFPAY | PROVIDERS: Visit Provider Physician Assistant | DX: M75.22 Bicipital tendinitis, left shoulder (principal); M77.8 Other enthesopathies, not elsewhere classified | CPT/HCPCS: 99212 ==

== ENCOUNTER 2025-03-20 10:46 | Outpatient (RCR) | payer MEDICAID, SELFPAY | END 2025-03-27 11:33 | disposition home or self-care (01) | LOC: HO.PT 10:46 | PROVIDERS: Absent Provider Physician Assistant; PCP Internal Medicine; Visit Provider Family Medicine | DX: M77.8 Other enthesopathies, not elsewhere classified (principal); M75.22 Bicipital tendinitis, left shoulder | CPT/HCPCS: 97110; 97161; 97535 ==

== ENCOUNTER → 2025-05-14 08:51 | Outpatient (BNV) | payer MEDICAID, SELFPAY | PROVIDERS: Emergency Provider Emergency Medicine Emergency Medical Services; PCP Internal Medicine; Visit Provider Radiology Diagnostic Radiology | DX: R05.9 Cough, unspecified (principal) | CPT/HCPCS: 71046 ==

== ENCOUNTER 2025-05-14 09:23 | Emergency (ER) | payer MEDICAID, SELFPAY ==
--- NOTE | 2025-05-14 | ECG_ITS ---
Test Reason : cp Blood Pressure : */* mmHG Vent. Rate : 113 BPM Atrial Rate : 113 BPM P-R Int : 126 ms QRS Dur : 90 ms QT Int : 344 ms P-R-T Axes : 36 32 32 degrees QTcB Int : 471 ms Sinus tachycardia Abnormal ECG When compared with ECG of 27-Sep-2024 09:10, No significant change was found Referred By: Generic ED Physician Electronically Signed By: Doug Murphy
--- NOTE | ~2025-05-14 | XR_ITS ---
EXAMINATION: XR CHEST CLINICAL INFORMATION: cough, sob COMPARISON: September 27, 2024 TECHNIQUE: 2 views of the chest were obtained. FINDINGS: No significant abnormality is noted involving the heart, lungs, mediastinum, bony thorax or soft tissues. XR/XR chest 2V IMPRESSION: No acute disease Electronically signed by: Shad Jackson MD 05/14/2025 10:00 AM EDT RP
[2025-05-14 09:30] VITALS: BP 122/72; PULSE 120; RESP 22; TEMP 36.6; O2SAT 97; BMI 36.8
--- NOTE | 2025-05-14 10:08 | ED.URI ---
HPI - URI/Sore Throat General Chief Complaint: Upper Respiratory Symptoms Stated Complaint: CP, resp issues Time Seen by Provider: 05/14/25 09:50 Source: patient Mode of arrival: ambulatory Limitations: no limitations History of Present Illness ED Provider: Huyen Francis PA-C HPI Narrative: Well-appearing 34-year-old female presenting to the emergency department today for evaluation of URI symptoms for last 2 days. No sig PMH. She is reporting that she was around 1 of her friends who were sick over this weekend. Patient is endorsing nasal congestion a scratchy throat and a dry cough. She felt warm last night and took Tylenol she recalls her temperature being 100.2. She reports no fever today. She is not feeling short of breath except for when she coughs really hard. She is denying any angina and no orthopnea or shortness breast with exertion. No abdominal pain or nausea or vomiting no diarrhea. She is endorsing body aches went to joint pain in her rashes. She is able tolerate p.o. fluids and void regularly with no changes to her appetite. She has not travel anywhere. Related Data Home Medications ?Medication ?Instructions ?Recorded ?Confirmed ascorbic acid (vitamin C) 500 mg 500 mg PO BID 08/29/22 02/12/25 tablet (Vitamin C) ferrous sulfate 325 mg (65 mg 325 mg PO BID 08/29/22 02/12/25 iron) tablet (FeroSul) lidocaine 5 % topical patch 0 patch topical 08/29/22 02/12/25 (Lidoderm) naproxen 500 mg tablet 0 mg PO 08/29/22 02/12/25 Previous Rx's ?Medication ?Instructions ?Recorded cetirizine 10 mg tablet (Zyrtec) 10 mg PO DAILY #20 tabs 02/02/21 diphenhydramine HCl 25 mg capsule 25 mg PO Q6H PRN itching #14 caps 02/02/21 (Benadryl) triamcinolone acetonide 0.025 % 1 appl topical BID #80 grams 02/02/21 topical ointment cyclobenzaprine 5 mg tablet 5 mg PO TID PRN shoulder pain 7 12/19/24 days #21 tabs nirmatrelvir 300 mg (150 mg See Rx Instructions PO .COMPLEX 05/14/25 x2)-ritonavir 100 mg tablet,dose #30 ea pack (Paxlovid) Allergies Allergy/AdvReac Type Severity Reaction Status Date / Time No Known Allergies (No Known Allergy Verified 05/14/25 09:32 Allergies*) Review of Systems Review of Systems: Yes all other systems are reviewed and are negative PMFSH Past Medical History Attestation statement: The following information was validated with the patient. 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 No septic or ill-appearing. Vitals reviewed normal, PMH/Social and Surgical hx reviewed including allergies and current medications. - reviewed for prior visits here Head: Normocephalic, no obvious trauma or skin lesions noted. Eyes: EOMI, conjunctivae and sclerae are clear no discharge ENMT: moist oral mucosa, uvula is midline no trismus no tonsillar edema erythema or exudate. Neck: trachea midline, no lymphadenopathy Cardiovascular: peripheral perfusion normal, Regular heart rate, regular rhythm Respiratory: no respiratory distress, no chest wall tenderness lungs clear to auscultation bilaterally Abdomen: nondistended but obese nontender Extremities: warm and moving without difficulty Psych: Cooperative Neuro: Alert and oriented. Vital Signs: Vital Signs: Last Vital Signs Temp 97.8 F 05/14/25 10:31 Pulse 91 05/14/25 10:31 Resp 20 05/14/25 10:31 BP 128/67 05/14/25 10:31 Pulse Ox 99 05/14/25 10:31 O2 Del Method Room Air 05/14/25 10:31 BMI result Body Mass Index 36.8 Medical Decision Making Medical Decision Making MDM Narrative: 34 year old patient presenting to the ED today for evaluation of cold/flu-like symptoms. History and physical as noted above. Presentation most consistent with primary Viral Syndrome. Based on vitals and exam, they are nontoxic and stable for discharge. Given History and Exam I have a lower suspicion for: Emergent CardioPulmonary causes such as Acute Asthma or COPD Exacerbation, acute Heart Failure or exacerbation, PE, PTX, atypical ACS, PNA. Emergent Otolaryngeal causes such as PONY WORKER, RPA, Ludwigs, Epiglottitis, EBV. Lungs are clear, CXR was clear. . Able to tolerate PO fluids and responds well to antipyretics. Patient tested positive for COVID-19. Will provide strict return precautions and instructions on self-isolation/quarantine and anticipatory guidance. ?They are are on day 2 of infection. Paxlovid is indicated. ?Discussed risks vs benefits as well as medication interactions. Differential Diagnosis Differential Diagnoses: The differential diagnosis associated with the presentation includes See [facility] Admission/Observation Consideration of admission/observation: Escalation of care including admission/observation considered Patient would have been admitted to the hospital had her work up had any findings where hospital admission was appropriate and her clinical presentation warranted hospital admission. Lab Data [facility] Lab Attestation statement: I reviewed the patient's lab results. Positive COVID-19 Labs: Lab Results 05/14/25 Range/Units 09:35 Influenza Type A (PCR) NEGATIVE (Negative) Influenza Type B (PCR) NEGATIVE (Negative) RSV RNA Qual (PCR) NEGATIVE (Negative) SARS-CoV-2 RNA (RT-PCR) POSITIVE A (Negative) Independent Interpretation I performed an independent interpretation of an: Plain X-Ray Interpretation: No acute findings on chest x-ray Radiology Impression Discussion of test interpretation with radiology: I have reviewed the radiologist's reading. Radiologist Impression: No acute process Tests considered The following testing was considered but not selected: Would have considered CTA had patient's main complaint only been shortness of breath but no infectious symptoms-no concerns for PE as her heart rate normalized without medical intervention. Prescription Management I considered prescription management with: Antiviral and Antibiotic No bacterial etiology is present therefore antibiotic deferred, she has positive to COVID-19 and given her obesity would be a candidate for Paxlovid Chronic Conditions Patient?s care impacted by: Other (Obesity) Social Determinants Patient?s care significantly limited by Social Determinants of Health including: Other Social Determinant of Health Discharge Plan Discharge Clinical Impression: COVID-19, Acute cough Patient Disposition: Home, Self-Care Instructions: Upper Respiratory Infection (ED) Additional Instructions: You have an upper respiratory infection. This is an infection involving the nose, throat and larynx, almost always caused by a virus. The infection rarely spreads or leads to serious long-term problems. Since the infection is caused by a virus, antibiotics are not helpful. It may help your symptoms to use a decongestant nose spray to open the nasal passages and permit drainage. Afrin nasal spray (or a similar decongestant spray) can be used twice a day for up to four days. You may develop tolerance to it if used longer than this. YOur chest x-ray is clear. Your COVID flu and strep test is pending if positive we will call you. You may take Tylenol 650mg orally every 6 hours or Motrin (advil) 600mg orally every 6 hours as needed. Please take the motrin with food. Over the counter Flonase nasal spray can help with any congestion/sinus pressure. With time this can also help alleviate ear pressure that occurs as a result of the congestion. Over the counter Eaton Mist Nasal Saline can be used a few times daily to help irrigate the nose/sinuses to help with congestion. Warm tea with honey can help the throat and cough. You may trial use of an over the counter decongestant such as Sudafed. Return or get rechecked by your doctor if you get high or prolonged fever (over 101 F orally), worsening pain, swelling over your face or eyes, earache, shortness of breath or chest pain, severe headache, stiff neck, vomiting, or a rash. If you are not improving after 10 days of illness you should be re-evaluate. Respiratory tract infections are usually spread by coughing; the virus lands on surfaces and is then picked up on the hands and carried to the nose or mouth - so good hand washing is important to avoid spreading the virus. Prescriptions: New Paxlovid 300 mg (150 mg x 2)-100 mg tablets,dose pack See Rx Instructions .ROUTE .COMPLEX Qty: 30 0RF Rx Instructions: take TWO 150 mg tablets of nirmatrelvir with ONE 100 mg tablet of ritonavir twice daily for 5 days No Action diphenhydramine HCl [Benadryl] 25 mg capsule 25 mg PO Q6H PRN (Reason: itching) Qty: 14 0RF cetirizine [Zyrtec] 10 mg tablet 10 mg PO DAILY Qty: 20 0RF triamcinolone acetonide 0.025 % ointment 1 appl topical BID Qty: 80 0RF cyclobenzaprine 5 mg tablet 5 mg PO TID PRN (Reason: shoulder pain) 7 Days Qty: 21 0RF lidocaine [Lidoderm] 5 % adhesive patch,medicated 0 patch topical naproxen 500 mg tablet 0 mg PO ferrous sulfate [FeroSul] 325 mg (65 mg iron) tablet 325 mg PO BID ascorbic acid (vitamin C) [Vitamin C] 500 mg tablet 500 mg PO BID Referrals: Felisha Arzola MD [Primary Care Provider, Internal Medicine] Referral Note: ED follow up Stand Alone Forms: Work/School Release Interventions: ED Discharge Assessment Last Done: 05/14/25 10:31 Discharge Date/Time: 05/14/25 10:31 Print Language: Arabic
[2025-05-14 10:22] LABS: Resp Syncy Virus RNA Qual PCR NEGATIVE (Negative); SARS COV2 PCR INHOUSE POSITIVE (Negative)
[2025-05-14 10:31] VITALS: BP 128/67; PULSE 91; RESP 20; TEMP 36.6; O2SAT 99
--- OUTSIDE RECORDS SUMMARY | 2025-05-14 11:26 | XMS_ITS | Encounter Summary ---
Author Organization [employer] Address [address] [place] [address] [place] [address] Care Team Providers Care Precision Lens Grinder Name Role Phone Felisha Arzola MD Primary Care Provider + Encounter Details Date Type Department Care Team (Latest Contact Info) Description 12/04/2020 Abstract [facility] CONVERSIONS Dental, Provider, DDS Social History [...] Care Team (Late st Contact Info) Description 05/29/2025 11:00 AM EDT Office Visit [facility] OPTOMETRY [address] [place] [address] Grady, Rachel, OD [address] [place] [address] documented as of this encounter Visit Diagnoses Not on filedocumented in this encounter Care Teams Precision Lens Grinder Relationship Specialty Start Date End Date Felisha Arzola MD [address] [place], [place] [phone] PCP - General Family Medicine 01/06/17 documented as of this encounter
--- OUTSIDE RECORDS SUMMARY | 2025-05-14 11:26 | XMS_ITS | Encounter Summary ---
Author Organization [employer] Address [address] [place] [address] [place], [place] [address] Care Team Providers Care Director Of Income Tax Name Role Phone Felisha Arzola MD Primary Care Provider + Encounter Details Date Type Department Care Team (Latest Contact Info) Description 03/31/2022 Abstract [facility] CONVERSIONS Dental, Provider, DDS Social History [...] Description 05/29/2025 11:00 AM EDT Office Visit [facility] OPTOMETRY [address] [place] [address] Grady, Rachel, OD [address] [place] [address] documented as of this encounter Visit Diagnoses Not on filedocumented in this encounter Care Teams Director Of Income Tax Relationship Specialty Start Date End Date Felisha Arzola MD [address] [place], [place] [phone] PCP - General Family Medicine 01/06/17 documented as of this encounter
--- OUTSIDE RECORDS SUMMARY | 2025-05-14 11:27 | XMS_ITS | Encounter Summary ---
Author Organization [employer] Address [address] [place] [address] [address] [address] Care Team Providers Care Independent Video Producer Name Role Phone Felisha Arzola MD Primary Care Provider + Encounter Details Date Type Department Care Team (Latest Contact Info) Description 11/05/2018 Abstract [facility] CONVERSIONS Dental, Provider, DDS Social History [...] Description 05/29/2025 11:00 AM EDT Office Visit [facility] OPTOMETRY [address] [place] [address] Grady, Rachel, OD [address] [place] [address] documented as of this encounter Visit Diagnoses Not on filedocumented in this encounter Care Teams Independent Video Producer Relationship Specialty Start Date End Date Felisha Arzola MD [address] [place] [address] PCP - General Family Medicine 01/06/17 documented as of this encounter
--- OUTSIDE RECORDS SUMMARY | 2025-05-14 11:27 | XMS_ITS | Encounter Summary ---
Author Organization [employer] Address [address] [facility] [address] [place] [address] Care Team Providers Care Drone Pilot Name Role Phone Felisha Arzola MD Primary Care Provider + Reason for Visit * Reason Onset Date Comments Letter for School/Work 08/18/2022 Encounter Details Date Type Department Care Team ([facility] st Contact Info) Description 08/18/2022 Telephone [facility] MEDICINE [address] [place], [place] [phone] Felisha Arzola MD [address] [place], [place] [phone] Letter for School/Work Social History Tobacco Use [...] Recorded In the last 10 days, have jose u been in contact with someone who was confirmed or suspected to have Coronavirus/COVID-19? No / Unsure 08/11/2022 2:07 PM EST documented as of this encounter Miscellaneous Notes * Telephone Encounter - Shahzad Arrieta - 08/25/2022 10:12 AM EST Tc from pt requesting a letter for program stating about her fracture foot Please contact pt at [phone] * Telephone Encounter - Uma Pham RN [...] Left SMS notification to return call at [phone]. * Telephone Encounter - Katty Aguilar - [...] results . States [place] [facility] [place] documented in this encounter Plan of Treatment Upcoming Encounters Date Type Department Care Team (Late st Contact Info) Description 05/29/2025 11:00 AM EDT Office Visit [facility] OPTOMETRY [address] [place], [place] [phone] Rachel Rasmussen, OD [address] [place] [address] documented as of this encounter Visit Diagnoses Not on filedocumented in this encounter Care Teams Drone Pilot Relationship Specialty Start Date End Date Felisha Arzola MD [address] [place] [address] PCP - General Family Medicine 01/06/17 documented as of this encounter
--- OUTSIDE RECORDS SUMMARY | 2025-05-14 11:27 | XMS_ITS | Encounter Summary ---
Author Organization [employer] Address [address] [facility] [address] [place] [address] Care Team Providers Care Bill Checker Name Role Phone Felisha Arzola MD Primary Care Provider + Encounter Details Date Type Department Care Team (Late st Contact Info) Description 08/18/[address] [facility] [address] [place] [address] Gudelia Robb MD [address] [place] [address] Stress fracture of metatarsal bone of right [...] Description 05/29/2025 11:00 AM EDT Office Visit [facility] OPTOMETRY [address] [place] [address] Grady, Rachel, OD [address] [place] [address] documented as of this encounter Visit Diagnoses Diagnosis Stress fracture of metatarsal bone of right foot, initial encounter- Primary documented in this encounter Care Teams Bill Checker Relationship Specialty Start Date End Date Felisha Arzola MD [address] [place] [address] PCP - General Family Medicine 01/06/17 documented as of this encounter
--- OUTSIDE RECORDS SUMMARY | 2025-05-14 11:27 | XMS_ITS | Encounter Summary ---
Author Organization [employer] Address [address] [place] [address] [address] [place] [address] Care Team Providers Care Software Packager Name Role Phone Felisha Arzola MD Primary Care Provider + Encounter Details Date Type Department Care Team (Latest Contact Info) Description 05/06/2019 Abstract [facility] CONVERSIONS Dental, Provider, DDS Social History Tobacco [...] Description 05/29/2025 11:00 AM EDT Office Visit [facility] OPTOMETRY [address] [place] [address] Grady, Rachel, OD [address] [place] [address] documented as of this encounter Visit Diagnoses Not on filedocumented in this encounter Care Teams Software Packager Relationship Specialty Start Date End Date Felisha Arzola MD [address] [place] [address] PCP - General Family Medicine 01/06/17 documented as of this encounter
--- OUTSIDE RECORDS SUMMARY | 2025-05-14 11:27 | XMS_ITS | Clinical Summary ---
Author Organization [facility] Address [address] [place] [phone] Phone Care Team Providers Care Rn Mds Coordinator Name Role Phone Felisha Arzola MD Primary Care Provider + Allergies No known active allergies Medications metoprolol succinate (TOPROL-XL) 50 MG 24 hr tablet Take 50 mg by mouth daily. 4 Active norethindrone (MICRONOR) 0.35 mg tablet Take 0.35 mg by mouth daily. 4 Active lidocaine (LIDODERM) 5 % Place 1 patch onto the skin daily. 4 Active ibuprofen (ADVIL,MOTRIN) 600 MG tablet Take 600 mg by mouth as needed. 4 Active fluocinonide 0.05 % ointment Apply topically daily. Active hydrOXYzine (VISTARIL) 25 MG capsule Take 25 mg by mouth every 6 (six) hours as needed. 4 Active methIMAzole (TAPAZOLE) 10 MG tabletIndicatio ns:Graves' disease Take 2 tablets (20 mg total) by mouth 2 (two) times a day. 360 tablet 4 Active Active Problems Problem Noted Date Diagnosed Date Graves' disease 01/11/2024 Assessment & Plan (03/20/2024 10:44 AM EDT): The patient has improved in terms of symptoms but still continues to have palpitations, heat intolerance, anxiety but overall she is better. Her concern is that she is gaining weight. Advised that she needs to monitor her diet. I advised her to obtain lab work today. I will contact her once I have the results and adjust medications if necessary.Addendum: Lab work done on 03/20/2024 shows TSH is still suppressed at less than 0.01 with free T4 of 1.5 ng/dL and free T3 of 4.0 PG/mL. This lab work is 6 weeks after initiation of methimazole so I think that she just needs more time on the current dose. If the increased medication may make her hypothyroid. I called the patient but her mailbox is full and I was unable to leave a message. I will renew the patient's medications. Assessment & Plan (01/11/2024 10:17 AM EDT): The patient is hyperthyroid. 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 However thyrotoxicosis is transient and she has had this condition since May 2023. Furthermore she has elevated free T3 which is seen in Graves' disease. So I will check TBII antibodies for evaluation of Graves' disease and refer the patient for radioactive iodine uptake and scan. She is symptomatic but heart rate is controlled with metoprolol. I will withhold thionamides therapy until she has radioactive iodine uptake and scan. I informed her that this will take a period of 2 days to be done. I asked her to contact the radiology department if she does not hear from them within a week to ensure that she schedule the studies. She is going to obtain lab work today and again we will hold off thionamides. She will follow in approximately 6 weeks. Jackelin's thyroiditis 01/11/2024 Assessment & Plan (01/11/2024 10:14 AM EDT): The patient has Jackelin's based on elevated TPO antibodies. Family History Medical History Relation Comments Cancer Father Diabetes Mother Relation Status Comments Father Mother Alive Social History Tobacco Use Types Packs/Day Years Used Date Smoking Tobacco: Never Smokeless Tobacco: Never Alcohol Use Standard Drinks/Week Comments Never 0 (1 standard drink = 0.6 oz pur e alcohol) Education Answer Date Recorded Are you interested in more education? Not on lore e 10/10/2023 Are you concerned about learning? Not on file 10/10/2023 No 10/10/2023 No 10/10/2023 Digital Access Answer Date Recorded No 10/10/2023 No 10/10/2023 Reliable internet access at home? Not on file 10/10/2023 Device with a working camera? Not on file Comments Unknown Sex and Gender Information Value Date Recorded Sex Assigned at Not on file Legal Sex Female 3:28 PM EST Gender Identity Not on file Sexual Orientation Not on file Last Filed Vital Signs Vital Sign Reading Time Taken Comments Blood Pressure 138/94 03/19/2024 12:08 PM EDT Pulse 84 03/19/2024 12:08 PM EDT Temperature - - Respiratory Rate - - Oxygen Saturation 99% 03/19/2024 12:08 PM EDT Inhaled Oxygen Concentration - - Weight 98.4 kg (217 lb) 03/19/2024 12:08 PM EDT Height 176 cm (5' 9.29 ) 03/19/2024 12:08 PM EDT Body Mass Index 31.78 03/19/2024 12:08 PM EDT Plan of Treatment Upcoming Encounters Date Type Department Care Team (Late st Contact Info) Description 05/29/2025 11:50 AM EDT Office Visit [facility] [address] [place] [phone] Silas Gunn DO [address] [place] [phone] [email or web address] Health Maintenance Due Date Last Done Comments Adult Td,Tdap Booster 1989 DEPRESSION SCREENING 2001 HEPATITIS C SCREENING 12/14/2007 HIV ONE-TIME SCREENING (18-6 5 YEARS) 12/14/2007 PAP SMEAR 2010 SCREENING FOR DIABETES 2024 INFLUENZA VACCINE (#1) 2025 COVID-19 VACCINE (2023-2 5 season) 2025 SMOKING STATUS SCREENING (On ce After 26 Yrs) Completed 03/19/2024 HEPATITIS A VACCINES Aged Out No long er eligible based on patient's age to complete this topic HIB VACCINES Aged Out No longer eligi ble based on patient's age to complete this topic MENINGOCOCCAL VACCINES (ACWY) Aged Out No longer eligible based on patient's age to complete this topic MENINGOCOCCAL VACCINES (B) Aged Out N o longer eligible based on patient's age to complete this topic PNEUMOCOCCAL VACCINES (0-49 years) Aged Out No longer eligible based on patient's age to complete this topic Medical Devices Not on file Insurance Care Teams Rn Mds Coordinator Relationship Specialty Start Date End Date Felisha Arzola MD PCP - General Internal Medicine 01/23/24 Additional Source Comments The information contained in this document represents components of the legal health record. It is not the complete legal health record.[facility]
--- OUTSIDE RECORDS SUMMARY | 2025-05-14 11:27 | XMS_ITS | Encounter Summary ---
Author Organization [employer] Address [address] [facility] 7[address] [place] [address] Care Team Providers Care Commercial Singer Name Role Phone Felisha Arzola MD Primary Care Provider + Reason for Visit * Reason Onset Date Comments Results 06/29/2023 Encounter Details Date Type Department Care Team ([facility] st Contact Info) Description 06/29/2023 Telephone [facility] MEDICINE [address] [place], [place] [phone] Felisha Arzola MD [address] [place] [address] Results Social History Tobacco Use Types Packs/Day [...] with others, in a hotel, in [place] [facility] [place], living outside on the street, on a [...] patient and gave her a letter regarding Latvian classes. Please refer to letter. No further action needed. * Telephone Encounter - Comfort Smith - 06/29/2023 9:30 AM EDT Tc from pt requesting a call back in regards results on XRAY done at [facility] 06/22/2023 documented in this encounter Plan of Treatment Upcoming Encounters Date Type Department Care Team (Late st Contact Info) Description 05/29/2025 11:00 AM EDT Office Visit [facility] OPTOMETRY [address] [place] [address] Rachel Rasmussen, OD [address] [place] [address] documented as of this encounter Visit Diagnoses Not on filedocumented in this encounter Additional Health Concerns Assessment Noted Time PHQ-9 Depression Total Score: 12 023 9:23 AM EDT documented as of this encounter Care Teams Commercial Singer Relationship Specialty Start Date End Date Felisha Arzola MD [address] [place] [address] PCP - General Family Medicine 01/06/17 documented as of this encounter
--- OUTSIDE RECORDS SUMMARY | 2025-05-14 11:27 | XMS_ITS | Clinical Summary ---
Author Organization [employer] Address [address] [facility] 7t [place] [address] Care Team Providers Care Senior Inspector Name Role Phone Felisha Arzola MD [...] each day. 1 Active Blood Pressure kit Active traZODone (Desyrel) 50 MG tablet Take 1 tablet by mouth at bed time. 9 Active Blood Pressure Monitoring (Omron 3 Series BP Monitor) device USE TO CHECK BLOOD PRESSURE DAILY 2 Active ketoconazole (NIZOral) 2 % shampooIndication s:Seborrheic dermatitis APPLY TO THE AFFECTED AREA(S) TOPICALLY TWICE A WEEK 120 mL 1 3 Active lidocaine (Lidoderm) 5 % patch APPLY 1 PATCH TOPICALLY TO SKIN, LEAVE ON FOR 12 HOURS AND OFF FOR 12 HOURS DIRECTED 10 patch 5 4 Active metoprolol succinate XL (Toprol XL) 50 MG 24 hr tabletIndications :Secondary hypertension Take 1 tablet (50 mg) by mouth in the morning. Do not crush or chew. 90 tablet 3 4 Active norethindrone (Micronor) 0.35 MG tabletIndications :Encounter for surveillance of other contraceptive Take 1 [...] needed for anxiety. 90 capsule 4 Active Diclofenac Sodium 1 % gel Apply [...] 90 tablet 3 5 10/17/19 26 Active tiZANidine (Zanaflex) 4 MG tabletIndications :Chronic bilateral thoracic back pain Take 1 tablet (4 mg) by mouth every 6 (six) hours if needed for muscle spasms for up to 10 days. 30 tablet 5 Active lidocaine (Lidoderm) 5 % patchIndications: Chronic bilateral thoracic back pain Apply 1 patch topically Once per day. Remove & discard patch within 12 hours or as directed by MD. 30 patch 5 Active ibuprofen 600 MG tabletIndications :Chronic bilateral thoracic back pain Take 1 tablet (600 mg) by mouth every 6 (six) hours if needed for mild pain for up to 10 days. 40 tablet 5 04/19/20 25 Active Problems Problem Noted Date Diagnosed Date Fractured dental restorationism with loss of materi al 03/29/2024 Dental [...] instability. I told her to hold on cuban classes for at least a month I until these other issues are taken care of, specially housing, moving etc. 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 [employer] and she's able to go to school 12-14 hrs per week, she says she enjoys cuban classes FU w/ me 8 wk Contusion [...] Encounters Date Type Department Care Team Description 05/14/2025 Orders Only [facility] External Provider, [facility] 04/10/[address] [address] Felisha Arzola MD Nurse Triage 04/09/2025 3:45 PM EDT Office Visit [address] [address] Julissa Vazquez CNP Macromastia (Primary Dx); Chronic bilateral thoracic back pain; Obesity (BMI 30-39.9) 04/09/2025 Travel 04/09/[address] [address] Felisha Arzola MD Nurse Triage 02/25/[address] [address] Felisha Arzola MD No Show 02/24/[address] [address] Fleisha Arzola MD chart prep 02/13/[address] [address] Felisha Arzola MD Nurse Triage from Last 3 Months Immunizations Immunization Administration Dates Next Due DTaP 06/28/2016 Pfizer [...] with others, in a hotel, in a [facility], living outside on the street, on a [...] Sign Reading Time Taken Comments Blood Pressure 128/86 04/09/2025 3:41 PM EDT Pulse 96 04/09/2025 3:41 PM EDT Temperature 36.1 C (97 F) 04/09/2025 3:41 PM EDT Respiratory Rate 18 04/09/2025 3:41 PM EDT Oxygen Saturation 99% 04/09/2025 3:41 PM EDT Inhaled Oxygen Concentration - - Weight 109 kg (240 lb 3.2 oz) 04/09/2025 3:41 PM EDT Height 177.8 cm (5' 10 ) 04/09/2025 3:41 PM EDT Body Mass Index 34.47 04/09/2025 3:41 PM EDT Plan of Treatment Upcoming Encounters Date Type Department Care Team (Late st Contact Info) Description 05/29/2025 11:00 AM EDT Office Visit [facility] OPTOMETRY [address] [place] [address] Rachel Rasmussen, OD [address] [place] [address] Health Maintenance Due Date Last Done Comments Disability Screening 1989 Alcohol/Substance Use Screening 2001 Family Planning (PISQ) 2004 HPV Vaccines (1 - 3-dose series) 2004 Hepatitis C Screening 12/14/2007 Hepatitis B Vaccines (1 of 3 - 19+ 3-dose series) 2008 Depression Monitoring 11/15/2023 05/17/2023, 023 COVID-19 Vaccine ( season) 2024 10/03/2022, 05/19/2021, 04/28/2021 SDOH Screening 05/17/2024 05/17/2023 Dental Oral Exam 09/30/2024 03/29/2024, , 12/04/2020, Additional history exists Dental X-Ray: Bitewings 11/03/2024 11/02/19 24, 03/31/2022, 12/04/2020, Additional history exists Dental Prophylaxis 01/16/2025 07/18/2024, 0 11/02/2023, 03/31/2022, Additional history exists Dental X-Ray: Full Mouth 04/01/2025 03/31/2022, 10/13 Influenza Vaccine (#1) 2025 Tobacco Screening 04/09/2026 04/09/2025 DTaP/Tdap/Td Vaccines (2 - Tdap) 06/28/2026 06/28/2016 [...] patient's age to complete this topic Meningococcal B Vaccine Aged Out No l onger eligible based on patient's age to complete this topic Meningococcal Vaccine Aged Out No nilsa shree eligible based on patient's age to complete this topic Pneumococcal Vaccine: Pediatrics (0 to 5 Years) and At-Risk Patients (6 to 49) Years Aged Out No longer eligible based on patient's age to complete this topic RSV under 20 months Aged Out No longe r eligible based on patient's age to complete this topic Rotavirus Vaccines Aged Out No longer eligible based on patient's age to complete this topic Procedures Procedure Name Priority Date/Time Associated Diagnosis Comments SARS COV2/INFLUENZA A/B AND RSV RNA QL NAAT Routine 05/14/2025 9:35 AM EDT XR CHEST 2 VIEWS Routine 05/14/2025 8:51 AM EDT PROPHYLAXIS - ADULT Routine 07/18/2024 1 0:00 [...] HPV 16,18/45 Routine 06/30/2021 10:53 AM EDT ZZZ HISTORICAL HIV AB/AG Routine 04/01/2021 1:20 PM EDT from Last 3 Months or Most Recently Relevant to Health Maintenance Results * (ABNORMAL) SARS-CoV-2 RNA, Influenza A/B, and RSV RNA, Ql NAAT (05/14/2025 9:35 AM EDT) Influenza A PCR NEGATIVE Negative [facility] Influenza B PCR NEGATIVE Negative [facility] Resp Syncy Virus RNA Qual PCR NEGATIVE Negative [facility] SARS COV2 PCR POSITIVE(A) Negative [facility] Comment:All test results mus t be correlated with clinical findings.Negative results do not preclude SARS-CoV2, influenza Avirus, influenza B virus and/or RSV infectionand should not be used as the sole basis for treatment orother patient management decisions. Negative results must becombined with clinical observations, patient history, andepidemiological information.This test has not been evaluated for monitoring treatment ofinfection.This test has been authorized by the FDA under an EmergencyUse Authorization (EUA) for use by authorized laboratories.Testing performed on the [employer] GeneXpert utilizingreal-time RT-PCR.All SARS CoV2 and positive influenza A/B results arereported to [facility]. 05/14/2025 9:35 AM EDT 05/14/2025 9:38 AM EDT us Generic External Data Provider LAB MICROBIOLOGY - GENERAL ORDERABLES Final Result [facility] [address] [place] [phone] * XR Chest 2 Views (05/14/2025 8:51 AM EDT) Anatomical Region Laterality Modality Chest Radiographic Rhina ging 05/14/2025 8:51 AM EDT Narrative 05/14/2025 10:03 AM EDT [address] [address] XRay Report Signed Patient: Domitila Pina MR#: [id number] : 1990 Acct:[id number] Age/Sex: 34 / F ADM Date: 05/14/25 Loc: .ED Attending Dr: Ordering Physician: Xander Craig MD Date of Service: 05/14/25 Procedure(s): XR chest 2V Accession Number(s): [id number] cc: Felisha Arzola MD; Xander Craig MD Reason for Exam: cough, sob EXAMINATION: XR CHEST CLINICAL INFORMATION: cough, sob COMPARISON: September 27, 2024 TECHNIQUE: 2 views of the chest were obtained. FINDINGS: No significant abnormality is noted involving the heart, lungs, mediastinum, bony thorax or soft tissues. XR/XR chest 2V IMPRESSION: No acute disease Electronically signed by: Shad Jackson MD 05/14/2025 10:00 AM EDT RP Dictated By: Shad Jackson MD Signed By: <Electronically signed by Shad Jackson MD in OV> 05/14/25 1000 DD/ 0851 TD/TT: 05/14/25 0949 Filament Cutter: Procedure Note Donotuseinterpreter, Image - 05/14/2025 [place] [address] XRay Report Signed Patient: Domitila Pina MMR#: [id number] : 1990Acct:[id number] Age/Sex: 34 / FADM Date: 05/14/25 Loc: .ED Attending Dr: Ordering Physician: Xander Craig MD Date of Service: 05/14/25 Procedure(s): XR chest 2V Accession Number(s): [id number] cc: Felisha Arzola MD; Xander Craig MD Reason for Exam: cough, sob EXAMINATION: XR CHEST CLINICAL INFORMATION: cough, sob COMPARISON: September 27, 2024 TECHNIQUE: 2 views of the chest were obtained. FINDINGS: No significant abnormality is noted involving the heart, lungs, mediastinum, bony thorax or soft tissues. XR/XR chest 2V IMPRESSION: No acute disease Electronically signed by: Shad Jackson MD 05/14/2025 10:00 AM EDT RP Dictated By: Shad Jackson MD Signed By: <Electronically signed by Shad Jackson MD in OV> 05/14/25 1000 DD/ 0851 TD/TT: 05/14/25 0949 Filament Cutter: us [facility] External Provider IMG XR PROCEDURES Final Result * Lipid Panel with Reflex to Direct LDL (05/18/2023 8:54 AM EDT) Triglycerides 89 <150 mg/dL [facility] Comment:Desirable Triglyceri de: less than 150 mg/dLBorderline High Triglyceride 150-199 mg/dLHigh Triglyceride: 200-499 mg/dLVery High Triglyceride: greater than or equal to 5OO mg/dL Cholesterol 145 <200 mg/dL [facility] Comment:Desirable Cholestero l: less than 200 mg/dLBorderline High Cholesterol: 200-239 mg/dLHigh Cholesterol: greater than 239 mg/dL LDL Cholesterol Calculated 87 <100 mg/dL [facility] Comment:Desirable LDL: less than 100 mg/dLNear Optimal/Above Optimal LDL: 110- 129 mg/dLBorderline High LDL: 130-159 mg/dLHigh LDL: 160-189 mg/dLVery High LDL: greater than or equal to 190 mg/dL HDL Cholesterol 41 >40 mg/dL [facility] Comment:Desirable HDL: great er than 40 mg/dL Note: This HDL assay may give artificially low results in patients with liver disease. 05/18/2023 8:54 AM EDT 05/18/2023 11:05 AM EDT Felisha Arzola MD LAB BLOOD ORDERABLES Fin al Result [facility] [place] [address] [phone] * THINPREP TIS PAP AND HPV mRNA E6/E7 REFLEX HPV 16,18/45 (06/30/2021 10:53 AM EDT) Clinical Information: None given [facility] COMMENT SEE COMMENT [facility] Comment: EXPLANATORY NOTE: The Pap is a screening test for cervical cancer. It is not a diagnostic test and is subject to false negative and false positive results. It is most reliable when a satisfactory sample, regularly obtained, is submitted with relevant clinical findings and history, and when the Pap result is evaluated along with historic and current clinical information. COMMENT: This Pap test has been evaluated with computer assisted technology. [facility] Admission Nurse Coordinator: SEE COMMENT [facility] Comment: WAC, CT(ASCP) CT screening location: [address] [address] HPV nRNA E6/E7 Not Detected Not Detected [facility] Comment: Methodology: Utilization Coordinator-Mediated Amplification This assay detects E6/E7 viral messenger RNA (mRNA) from 14 high-risk HPV types (16,18,31,33,35,39,45,51,52,56,58,59,66,68). The analytical performance characteristics of this assay have been determined by [employer]. The modifications have not been cleared or approved by the FDA. This assay has been validated pursuant to the CLIA regulations and is used for clinical purposes. For additional information, please refer to http://education.BackType/faq/KWB881a8 (This link if provided for information/ educational purposes only.) Interpretation/Re sult: Negative for intraepithelial lesion or malignancy. [facility] LMP: 06/19/2021 [facility] Prev. BX: NONE GIVEN [facility] Prev. PAP: 4Y ? [facility]AL [facility] SOURCE: None given [facility] Statement Of Adequacy: SEE COMMENT [facility] Comment: Satisfactory for evaluation. Endocervical/transformation zone component present. 06/30/2021 10:5 3 AM EDT us Jessica SANCHEZ LAB PATHOLOGY ORDERABLES Final Result [facility] [address] [place] [address], * HIV AB/AG (04/01/2021 1:20 PM EDT) HIV AB/AG Nonreactive Nonreactive [facility] Comment: HIV-1 p24 Ag and/or HIV-1/HIV-2 Ab not detected. A test result that is nonreactive does not exclude the possibility of exposure to or infection with HIV-1 and/or HIV-2. Nonreactive results in this assay for individuals with prior exposure to HIV-1 and/or HIV-2 may be due to antigen and antibody levels that are below the limit of detection of this assay. The [employer] HIV Ag/Ab Combo assay result and supplemental assay results should be interpreted in conjunction with the patient's clinical presentation, history and other laboratory results. If the results are inconsistent with clinical evidence, additional testing is suggested to confirm the result. 04/01/2021 1:20 PM EDT us Felisha Arzola MD HISTORICAL/NON ORDERABLE LABS Final Result [facility] [address] from Last 3 Months or Most Recently Relevant to Health Maintenance Insurance [facility] C3 DENTAL-[facility] MEDICAID STAND ADULT Care Teams Senior Inspector Relationship Specialty Start Date End Date Felisha Arzola MD [address] [place] [phone] PCP - General Family Medicine 01/06/17
--- OUTSIDE RECORDS SUMMARY | 2025-05-14 11:28 | XMS_ITS | Encounter Summary ---
Author Organization [employer] Address [address] [facility] [address] [place] [address] Care Team Providers Care Senior Management Consultant Name Role Phone Felisha Arzola MD Primary Care Provider + Reason for Visit * Reason Comments Med Refill Encounter Details Date Type Department Care Team ([facility] st Contact Info) Description 10/17/2023 Refill [facility] MED[facility]INE [address] [place], [place] [phone] Felisha Arzola MD [address] [place], [place] [phone] Jackelin's thyroiditis Social History Tobacco Use Types [...] Description 05/29/2025 11:00 AM EDT Office Visit [facility] OPTOMETRY [address] [place] [address] Rachel Rasmussen, OD [address] [place] [address] documented as of this encounter Visit Diagnoses Diagnosis Jackelin's thyroiditis Chronic lymphocytic thyroiditis documented in this encounter Additional Health Concerns Assessment Noted Time PHQ-9 Depression Total Score: 12 023 9:23 AM EDT documented as of this encounter Care Teams Senior Management Consultant Relationship Specialty Start Date End Date Felisha Arzola MD [address] [place] [address] PCP - General Family Medicine 01/06/17 documented as of this encounter
--- OUTSIDE RECORDS SUMMARY | 2025-05-14 11:28 | XMS_ITS | Encounter Summary ---
Author Organization [employer] Address [address] [place] [address] Care Team Providers Care Astronomy Instructor Name Role Phone Feilsha Arzola MD Primary Care Provider + Encounter Details Date Type Department Care Team ([facility] st Contact Info) Description 11/30/2023 Telephone [facility] MEDICINE [address] [place], [place] [phone] Felisha Arzola MD [address] [place], [place] [phone] Social History Tobacco Use Types Packs/Day Years [...] with others, in a hotel, in a longterm, living outside on the street, on a [...] Description 05/29/2025 11:00 AM EDT Office Visit [facility] OPTOMETRY [address] [place] [address] Grady, Rachel, OD [address] [place] [address] documented as of this encounter Visit Diagnoses Not on filedocumented in this encounter Additional Health Concerns Assessment Noted Time PHQ-9 Depression Total Score: 12 023 9:23 AM EDT documented as of this encounter Care Teams Astronomy Instructor Relationship Specialty Start Date End Date Felisha Arzola MD [address] [place] [address] PCP - General Family Medicine 01/06/17 documented as of this encounter
--- OUTSIDE RECORDS SUMMARY | 2025-05-14 11:28 | XMS_ITS | Encounter Summary ---
Author Organization [employer] Address [address] [place] [address] Care Team Providers Care Torque Tester Name Role Phone Felisha Arzola MD Primary Care Provider + Encounter Details Date Type Department Care Team (Late st Contact Info) Description 05/14/2025 Orders Only [facility] External Provider, [facility] Social History Tobacco Use Types Packs/Day Years [...] with others, in a hotel, in a retirement, living outside on the street, on a [...] Description 05/29/2025 11:00 AM EDT Office Visit [facility] [address] [place], [place] [id number] Rachel Rasmussen, OD [address] [place] [address] documented as of this encounter Procedures Procedure Name Priority Date/Time Associated Diagnosis Comments SARS COV2/INFLUENZA A/B AND RSV RNA QL NAAT Routine 05/14/2025 9:35 AM EDT XR CHEST 2 VIEWS Routine 05/14/2025 8:51 AM EDT documented in this encounter Results * (ABNORMAL) SARS-CoV-2 RNA, Influenza A/B, and RSV RNA, Ql NAAT (05/14/2025 9:35 AM EDT) Influenza A PCR NEGATIVE Negative [facility] Influenza B PCR NEGATIVE Negative [facility] Resp Syncy Virus RNA Qual PCR NEGATIVE Negative [facility] SARS COV2 PCR POSITIVE(A) Negative [facility] Comment:All test results mus t be [...] use by authorized laboratories.Testing performed on the Cepheid GeneXpert utilizingreal-time RT-PCR.All SARS CoV2 and positive influenza A/B results arereported to [facility]. 05/14/2025 9:35 AM EDT 05/14/2025 9:38 AM EDT us Generic External Data Provider LAB MICROBIOLOGY - GENERAL ORDERABLES Final Result Performing Organization Address City/State/[facility] Co de Phone Number [facility] [address] [place] [phone] * XR Chest 2 Views (05/14/2025 8:51 AM EDT) Anatomical Region Laterality Modality Chest Radiographic Rhina ging 05/14/2025 8:51 AM EDT Narrative 05/14/2025 10:03 AM EDT [address] [address] XRay Report Signed Patient: Domitila Pina MR#: [id number] : 1990 Acct:[id number] Age/Sex: 34 / F ADM Date: 05/14/25 Loc: .ED Attending Dr: Ordering Physician: Xander Craig MD Date of Service: 05/14/25 Procedure(s): XR chest 2V Accession Number(s): [id number] cc: Felisha Arzola MD; Xander Craig MD [...] Shad Jackson MD 05/14/2025 10:00 AM EDT Dictated By: Shad Jackson MD Signed By: <Electronically signed by Shad Jackson MD in OV> 05/14/25 1000 DD/ 0851 TD/TT: 05/14/25 0949 [employer] Chief Scientist: Procedure Note Dejonter, Image - 05/14/2025 [facility] [address] [place] [address] XRay Report Signed Patient: Domitila Pina MMR#: [id number] : 1990Acct:[id number] Age/Sex: 34 / FADM Date: 05/14/25 Loc: HO.ED Attending Dr: Ordering Physician: Xander Craig MD Date of Service: 05/14/25 Procedure(s): XR chest 2V Accession Number(s): [id number] cc: Felisha Arzola MD; Xander Craig MD [...] Shad Jackson MD 05/14/2025 10:00 AM EDT Dictated By: Shad Jackson MD Signed By: <Electronically signed by Shad Jackson MD in OV> 05/14/25 1000 DD/ 0851 TD/TT: 05/14/2549 [employer] Chief Scientist: [facility] External Provider IMG XR PROCEDURES Final Result documented in this encounter Visit Diagnoses Not on filedocumented in this encounter Additional Health Concerns Assessment Noted Time PHQ-9 Depression Total Score: 12 023 9:23 AM EDT documented as of this encounter Care Teams Torque Tester Relationship Specialty Start Date End Date Felisha Arzola MD [address] [place] [address] PCP - General Family Medicine 01/06/17 documented as of this encounter
== END 2025-05-14 10:31 | disposition home or self-care (01) ==
PROVIDERS: Emergency Provider Emergency Medicine Emergency Medical Services; PCP Internal Medicine
DX: U07.1 COVID-19 (principal); R07.89 Other chest pain; R09.81 Nasal congestion; R05.9 Cough, unspecified; M79.10 Myalgia, unspecified site; R21 Rash and other nonspecific skin eruption; Z79.899 Other long term (current) drug therapy
CPT/HCPCS: 71046; 87637; 93005; 99283; 99284

== ENCOUNTER → 2025-05-14 09:27 | Outpatient (BNV) | payer MEDICAID, SELFPAY | PROVIDERS: Emergency Provider Emergency Medicine Emergency Medical Services; PCP Internal Medicine; Visit Provider Internal Medicine Cardiovascular Disease | DX: R00.0 Tachycardia, unspecified (principal) | CPT/HCPCS: 93010 ==